=== PATIENT | male | born 1965 | race Caucasian/White ===

== ENCOUNTER 2016-05-14 15:19 | Inpatient (IN) | payer OTHER ==
[2016-05-14] MEDS ORDERED: ROCEPHIN 1 GM/NS 50 ML IV ONE (15:43)
[2016-05-14] MEDS ORDERED: LEVAQUIN PO ONE (15:44)
[2016-05-14 15:56] LABS: INR 1.04; PTT 31.5 Seconds (22.0-36.0)
[2016-05-14 16:08] LABS: BASO% 0.2 % (0.0-0.8); EOS# 0.04 X1000 (0.0-0.7); EOS% 0.2 % (0.0-10.0); HEMATOCRIT 36.1 % (42.0-52.0); HEMOGLOBIN 11.8 g/dL (14.0-18.0); IMM GRAN# 0.08 X1000 (0.0-0.04); IMM GRAN% 0.4 % (0.0-0.5); LYMPH# 1.65 X1000 (1.2-3.4); LYMPH% 8.4 % (20.5-51.1); MANUAL DIFF NEEDED? YES; MCH 27.6 PG (27-31); MCHC 32.7 g/dL (33-37); MCV 84.3 FL (81-99); MONO# 0.97 X1000 (0.11-0.59); MONO% 4.9 % (1.7-9.3); NEUT% 85.9 % (42.2-75.2); RBC 4.28 XMIL (4.7-6.1)
[2016-05-14 16:09] LABS: PLT 1061 X1000 (130-400)
--- NOTE | 2016-05-14 16:10 | EKG Report ---
Test Performed on : 05/14/2016 3:30:17 PM Test Reason : sob Blood Pressure : / mmHG Vent. Rate : 094 BPM Atrial Rate : 094 BPM P-R Int : 158 ms QRS Dur : 088 ms QT Int : 352 ms P-R-T Axes : 085 -61 081 degrees QTc Int : 440 ms Normal sinus rhythm. Biatrial enlargement Left axis deviation Cannot rule out Anteroseptal infarct , age undetermined Abnormal ECG No previous ECGs available Unconfirmed Result
[2016-05-14 16:11] LABS: AGAP 18; ALBUMIN 2.6 g/dL (3.5-5.0); ALKALINE PHOSPHATASE 144 U/L (32-122); BUN 14 mg/dL (8-22); CHLORIDE 94 mmol/L (98-107); CK PROFILE 18 U/L (24-204); COSMO 271; GOT 28 U/L (10-34); GPT 19 U/L (10-44); MAGNESIUM 1.6 mg/dL (1.5-2.7); POTASSIUM 3.5 mmol/L (3.5-5.1); SODIUM 134 mmol/L (136-145); TCO2 22 mmol/L (25-35); TOTAL PROTEIN 7.1 g/dL (6.3-8.3)
[2016-05-14 16:21] LABS: LYMPHS 8 % (21-51); MONO 5 % (1-9)
--- NOTE | 2016-05-14 16:23 | PROVIDER DOCUMENTATION ---
HPI-Respiratory General - General Chief Complaint: Shortness of Breath Stated Complaint: COUGH Time Seen by Provider: 05/14/16 15:42 Source: patient Allergies/Adverse Reactions: Patient Allergies Allergy/AdvReac Type Severity Reaction Status Date / Time No Known Allergies Allergy Verified 05/14/16 16:01 Home Medications: Home Medication List Medication Instructions Recorded Confirmed Last Taken Type No Home Medications 05/14/16 05/14/16 Unknown History - History of Present Illness-Resp Nature of Presenting Problem: patient is a 50 y/o M that presents with one month of shortness of breath, cough , fever/chills. patient was seen last week at pcp and dx with pna but was unable to get rx filled due to money. He's a PPD smoker. pt has generalized aches as well. Quality of Pain: reports: tightness Severity in ED: reports: moderate Onset/Duration: reports: gradual, other (a month) Timing: reports: still present, constant, getting worse Context: reports: recent URI (but couldn't afford medications) Cough Quality/Degree: reports: moderate, dry cough Episode Frequency: chronic episodes Current Respiratory Medication Therapy: Initiated see nurses note Modifying Factors: worse with: exertion, coughing Associated Symptoms: reports: cough, fever/chills, shortness of breath, short of breath. denies: nasal congestion, nasal drainage Similar Symptoms Previously?: Yes Recently seen or treated by another doctor?: Yes Review of Systems - Adult - REVIEW OF SYSTEMS - ADULT Constitutional: reports: fever. denies: chills Eyes: reports: no symptoms reported Ears, Nose, Mouth & Throat: denies: ear pain, sinus problem, throat pain, throat swelling Cardiovascular: denies: chest pain, palpitations, syncope Respiratory: reports: cough, dyspnea on exertion, shortness of breath, wheezing Gastrointestinal: denies: abdominal pain, diarrhea, nausea, vomiting Genitourinary: reports: no symptoms reported Musculoskeletal: reports: muscle aches, muscle weakness Integumentary: reports: no symptoms reported Neurological: reports: no symptoms reported Psychiatric: reports: no symptoms reported Endocrine: reports: no symptoms reported Hematologic/Lymphatic: reports: no symptoms reported Allergic/Immunologic: reports: no symptoms reported All Other Systems: Reviewed and Negative Past History - Adult - PAST MEDICAL HISTORY-ADULT Review of Records: reports: Nursing Assessment Review, Medications Reviewed Respiratory: reports: tuberculosis (dx in treated) - PRIOR SURGERIES/PROCEDURES Surgical/Procedure History: reports: reviewed, not pertinent - IMMUNIZATION STATUS Childhood Immunizations: See Nurse Assessment Flu Vaccine: See Nurse Assessment - FAMILY HISTORY Family History: reviewed, not pertinent - SOCIAL HISTORY Smoking: cigarettes, greater than 1 pack/day Alcohol Use Frequency: every day Number of drinks per typical drinking period:: 5-10 drinks Living Situation: family Physical Exam-General - PHYSICAL EXAM-ADULT Initial Vital Signs Reviewed: Yes - CONSTITUTIONAL General Appearance: alert, mild distress - EYES Eyes: PERRL/EOMI, pink conjunctivae - HEAD, EARS, NOSE, MOUTH & THROAT HENMT: normocephalic/atraumatic, moist mucous membranes, normal ENT inspection - NECK Neck: full range of motion, normal inspection. negative: lymphadenopathy - RESPIRATORY Respiratory: no respiratory distress, decreased breath sounds (on right base), increased rate - CARDIOVASCULAR Cardiovascular: no gallop, no murmur, tachycardia - GASTROINTESTINAL (ABDOMEN) Abdominal Exam: normal bowel sounds, non tender, soft, no organomegaly, no pulsatile mass - MUSCULOSKELETAL Back Exam: no CVA tenderness, no vertebral tenderness Extremity: normal range of motion, non-tender, normal inspection, no pedal edema , no calf tenderness, normal capillary refill, pelvis stable - SKIN Integumentary: normal color, warm/dry - NEUROLOGIC Neurologic: grossly normal, no motor/sensory deficits - PSYCHIATRIC Psych/Mental Status: normal mood/affect, normal thought content, normal thought process, oriented x 3 Progress - PLAN OF CARE/RESULTS Progress/Plan/Lab Results: plan of care-labs, cxr, ekg, meds, ct scan angio PE study [id number]-Hospitalist will be paged for admission Vital Signs Temp Pulse Resp BP Pulse Ox 05/14/16 15:24 98.2 F 109 H 32 H 115/62 99 No Known Allergies Allergy (Verified 05/14/16 16:01) No Home Medications 05/14/16 Laboratory 05/14/16 05/14/16 05/14/16 15:32 15:32 15:32 WBC RBC Hgb Hct MCV MCH MCHC RDW Std Deviation Plt Count MPV Immature Gran % (Auto) Neut % (Auto) Lymph % (Auto) [place] % (Auto) Eos % (Auto) Baso % (Auto) Immature Gran # (Auto) Neut # (Auto) Lymph # (Auto) [place] # (Auto) Eos # (Auto) Baso # (Auto) Segmented Neutrophils Lymphocytes Monocytes Pathologist Review Large Platelets PT 11.0 INR 1.04 PTT (Actin FS) 31.5 D-Dimer Sodium Potassium Chloride Carbon Dioxide Anion Gap BUN Creatinine Estimated GFR/1.73 m2 BUN/Creatinine Ratio Glucose Calculated Osmolality Calcium Magnesium Total Bilirubin AST ALT Alkaline Phosphatase Creatine Kinase Troponin T < 0.010 Drn-[id number]-[id number] Pept 207 H Total Protein Albumin Globulin Albumin/Globulin Ratio 05/14/16 05/14/16 05/14/16 15:32 15:32 15:32 WBC 19.71 H RBC 4.28 L Hgb 11.8 L Hct 36.1 L MCV 84.3 MCH 27.6 MCHC 32.7 L RDW Std Deviation 13.5 Plt Count 1061 H* MPV 9.0 Immature Gran % (Auto) 0.4 Neut % (Auto) 85.9 H Lymph % (Auto) 8.4 L [place] % (Auto) 4.9 Eos % (Auto) 0.2 Baso % (Auto) 0.2 Immature Gran # (Auto) 0.08 H Neut # (Auto) 16.94 H Lymph # (Auto) 1.65 [place] # (Auto) 0.97 H Eos # (Auto) 0.04 Baso # (Auto) 0.03 Segmented Neutrophils 87 H Lymphocytes 8 L Monocytes 5 Pathologist Review Large Platelets PT INR PTT (Actin FS) D-Dimer 0.54 H Sodium 134 L Potassium 3.5 Chloride 94 L Carbon Dioxide 22 L Anion Gap 18 BUN 14 Creatinine 0.6 L Estimated GFR/1.73 m2 > 60 BUN/Creatinine Ratio 23 Glucose 139 H Calculated Osmolality 271 Calcium 9.0 Magnesium 1.6 Total Bilirubin 0.30 AST 28 ALT 19 Alkaline Phosphatase 144 H Creatine Kinase 18 L Troponin T Cho-G-Gbqvpcjhosi Pept Total Protein 7.1 Albumin 2.6 L Globulin 4.5 Albumin/Globulin Ratio 0.6 Orders Category Date Time Status ANGIOGRAM/PULMONARY ARTERIES [CT] Stat Exams 05/14/16 16:11 Taken CHEST-2 VIEWS [RAD] Stat Exams 05/14/16 15:30 Taken BLOOD CULTURE [BLDCUL] Stat Lab 05/14/16 15:57 Results CBC WITH ELECTRONIC DIFF [HEME] Stat Lab 05/14/16 15:32 Completed CK PROFILE [SP CHEM] Stat Lab 02/06/17 15:32 Completed COMPREHENSIVE METABOLIC PANEL [CHEM] Stat Lab 05/14/16 15:32 Completed D-DIMER [CHEM] Stat Lab 05/14/16 15:32 Completed MAGNESIUM [CHEM] Stat Lab 05/14/16 15:32 Completed PRO B-NATRIURETIC PEPTIDE Stat Lab 05/14/16 15:32 Completed PROTIME WITH INR [COAG] Stat Lab 05/14/16 15:32 Completed PTT [COAG] Stat Lab 05/14/16 15:32 Completed TROPONIN T Stat Lab 05/14/16 15:32 Completed CefTRIAXONE 1 GM/NS [Rocephin 1 gm/Ns] 50 ml Med 05/14/16 15:43 Discontinued IV NOW Levofloxacin [Levaquin] Med 05/14/16 15:44 Discontinued 750 mg PO NOW ONE EKG [EKG] Stat Ther 05/14/16 15:29 Draft pt's family alerted nurse that patient drinks daily, he had some drinks this am but is started to have tremors and shakes - EKG 1 Time of EKG reading by physician:: 15:30 EKG Read and Signed by:: Josafat Ashton EKG Interpretation (*Must complete 3 of following elements*): Abnormal Rate: 94 Rhythm: NSR Repton: left NH Interval: normal ST Wave: non-specific ST changes Comments: biatrial enlargement - XRAY 1 XRAY Study: Chest Impression: Abnormal XRAY Interpretation: persistent RLL pneumonia/atelectasis with hilar adenopathy - CT/MRI 1 CT Study: Angiogram Impression: Abnormal CT Results: no pe, RLL mass and hilar adenopathy Departure - Departure Time of Disposition Order: 17:52 DIAGNOSIS: Mass of right lung, Shortness of breath, High platelet count Disposition: ADMITTED INPATIENT 09 Certified Medical Emergency: Emergent Condition: Stable Referrals: [Primary Care Provider] - Attestation - Scribe Verification/Attestation Scribe:: Adrian Mcclain Acting as Scribe for:: Josafat Ashton Scribe documention review:: This chart was documented by a scribe and accurately reflects the service the provider performed and the decisions made by the provider. Physician Attestation - Physician Attestation I, the provider, attest to the following statement:: Josafat Ashton Physician documentation Attestation:: This documentation recorded by the scribe accurately reflects the service I personally performed and the decisions made by me.
[2016-05-14] MEDS ORDERED: ATIVAN IV ONE (17:49)
--- NOTE | 2016-05-14 18:57 | Diag Imaging Result Document ---
PROCEDURE NAME: ANGIOGRAM/PULMONARY ARTERIES - 05/14/2016 CT OF THE CHEST WITH INTRAVENOUS CONTRAST: FINDINGS: There are no filling defects in the pulmonary arteries. There is several bullous emphysema in the right upper left lobe. There is attenuation of the posteromedial basal segment of the right lower lobe with a mass appearing opacity present in the right lower lobe. There is also apparent postobstructive pneumonitis. The more solid consolidation region measures at least 6.5 cm in diameter. In addition to this, there is adenopathy in the lower right hilum with nodes exceeding 2.8 cm in size. The aorta is normal in appearance. The adrenal glands are not enlarged. The regional skeleton appears to be intact. There are no previous studies. IMPRESSION: Right lower lobe mass with probable bronchial stenosis and right hilar adenopathy. Severe COPD.
[2016-05-14 19:27] LABS: HEMOGLOBIN A1C 5.7 % (4.8-6.0)
[2016-05-14] MEDS ORDERED: VANCOMYCIN IV PER PHARMACY MISC SCH (19:30)
[2016-05-14 19:34] LABS: FREE T4 1.25 ng/dL (0.93-1.70)
[2016-05-14 19:50] LABS: URINE CULTURE NEEDED? NO; URINE MICRO REVIEW NEEDED? NO; URINE SOURCE CLEAN CATCH
--- NOTE | 2016-05-14 20:03 | HISTORY AND PHYSICAL ---
HISTORY OF PRESENT ILLNESS: Mr. Penaloza gives a report that for 2 months both feet have been hurting, both his knees have been hurting. 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 The joints have hurt him now for a couple of months. He then states that he has had a cough and felt bad for the last 2 months but came to the emergency room today. He looks diaphoretic. He is alert and oriented. He states he has lost weight. He is not eating very well. He has a lady there who is a sitter for him. She used to work for home health. She verifies that he has not felt good for the last 2 months. PAST MEDICAL HISTORY: He does not give any past medical history. I do not see any past medical history on him. ALLERGIES: No known drug allergies. SOCIAL HISTORY: He smokes a couple of packs every day. He is drinking 5-6 beers by his report every day. He says he has not had much to drink or has cut back in the last couple of days. FAMILY HISTORY: He did not give us any significant family history. PHYSICAL EXAMINATION: VITAL SIGNS: Temperature 98.2 degrees, pulse 109, respirations 32, blood pressure 115/62. Weight 130 pounds. NECK: No distended neck veins. CVP less than 6 cm. LUNGS: Scattered rhonchi. CARDIOVASCULAR: Regular rhythm and rate. He has some sinus tachycardia but it is regular rhythm. ABDOMEN: Soft, nontender. EXTREMITIES: Without clubbing, cyanosis, or edema. LABORATORY DATA: White count 19,710, hematocrit 36, platelet count 1061, predominantly neutrophils 85%. Of note, he has large platelets. Sodium 134, potassium 3.5, chloride 94, bicarb 22, BUN 14, creatinine 0.6, blood sugar 139, calcium 9.0, magnesium 1.6, AST 28, ALT 19, alkaline phos 144, CK was 18, troponin less than 0.01. ProBNP 207, albumin 4.7, pro time 11, PTT 31, D- dimer 0.54. Micro blood specimen submitted for stool sample is pending. Chest x-ray reported infiltrate. EKG shows biatrial enlargement, left axis deviation. On 05/04/2016 he got a chest x-ray with COPD changes with dense focal infiltrate in the medial right lower lung zone likely representing pneumonia. Follow-up chest x-ray was recommended including the possibly of underlying mass. The repeat x-ray today looks about the same. Dr. Hawthorne is concerned about a mass in the right lung. ASSESSMENT AND PLAN: Suspect right lung mass, underlying COPD. We are going to treat for postobstructive pneumonia. We will put him on some Zosyn and vancomycin for now. Apparently he has felt pretty bad. We will get Pulmonary involved. We will give him some breathing treatments and Advair. Put him on a regular diet. We are going to probably need to get tissue biopsy of the right middle lung mass.
[2016-05-14 20:11] LABS: UR AMPHETAMINES QUAL NONE DETECTED (NONE DETECT); UR BARBITUATES QUAL NONE DETECTED (NONE DETECT); UR BENZODIAZEPIN QUAL NONE DETECTED (NONE DETECT); UR CANNABINOIDS QUAL NONE DETECTED (NONE DETECT); UR COCAINE QUAL NONE DETECTED (NONE DETECT); UR METHADONE QUAL NONE DETECTED (NONE DETECT); UR OPIATES QUAL NONE DETECTED (NONE DETECT); UR OXYCODONE QUAL NONE DETECTED (NONE DETECT); UR PCP QUAL NONE DETECTED (NONE DETECT)
[2016-05-14 20:18] LABS: BILIRUBIN URINE NEGATIVE (NEGATIVE); BLOOD URINE NEGATIVE (NEGATIVE); COLOR YELLOW; GLUCOSE URINE NEGATIVE (NEGATIVE); LEUKOCYTES URINE NEGATIVE (NEGATIVE); NITRITE URINE NEGATIVE (NEGATIVE); PROTEIN URINE TRACE mg/dL (NEGATIVE); TURBIDITY URINE CLEAR (CLEAR); UROBILINOGEN URINE 3 mg/dL (NORMAL)
[2016-05-14 20:21] LABS: UR EPITHELIAL CELLS <10 /HPF (<10); URINE BACTERIA NEGATIVE /HPF; URINE RBC <10 /HPF (<10); URINE WBC <10 /HPF (<10)
[2016-05-14] MEDS: DUONEB (A & A) INH SCH (20:31)
[2016-05-14] MEDS: NICODERM PATCH TD SCH (20:50)
[2016-05-14] MEDS: NS 1,000 ML IV SCH (20:51)
[2016-05-14] MEDS: M.V.I.-12 10 ML, FOLIC ACID 1 MG, MAGNESIUM SULFATE 1 GM, THIAMINE 100 MG in NS 1,000 ML IV SCH (20:51)
[2016-05-14] MEDS: ZOSYN 3.375 GM/NS 50 ML IV SCH (20:51)
[2016-05-14] MEDS ORDERED: VANCOMYCIN 2,000 MG in NS 500 ML IV ONE (21:00)
[2016-05-15] MEDS: ZOSYN 3.375 GM/NS 50 ML IV SCH ×3 (02:23→14:17)
--- NOTE | 2016-05-15 02:35 | PROGRESS NOTE ---
DATE: 05/14/2016 ADDENDUM REPORT: We also need to be vigilant about probable alcohol withdrawal versus delirium tremens. I am going to start him on some Ativan. I did discuss with the patient and told him I am concerned he has got lung cancer.
[2016-05-15] MEDS: DUONEB (A & A) INH SCH ×4 (03:38→21:00)
--- NOTE | 2016-05-15 06:15 | Diag Imaging Result Document ---
PROCEDURE NAME: CHEST-2 VIEWS - 05/14/2016 TWO VIEWS OF THE CHEST: FINDINGS: There is COPD particularly in the right apex. There is dense opacification of the medial right lower lobe. This was also present on 05/04/2016 and there is apparent adenopathy in the lower right hilum. IMPRESSION: 1. Persistent atelectasis and opacification of the right lower lobe. 2. Right hilar adenopathy. 3. COPD.
[2016-05-15] MEDS: NS 1,000 ML IV SCH ×2 (06:32→18:26)
[2016-05-15 07:01] LABS: HEMATOCRIT 29.6 % (42.0-52.0); HEMOGLOBIN 9.7 g/dL (14.0-18.0); MCH 27.9 PG (27-31); MCHC 32.8 g/dL (33-37); MCV 85.1 FL (81-99); MPV 8.9 FL (7.4-10.4); RBC 3.48 XMIL (4.7-6.1)
[2016-05-15 07:16] LABS: AGAP 15; BUN 9 mg/dL (8-22); CALCIUM 7.8 mg/dL (8.8-10.2); CHLORIDE 98 mmol/L (98-107); COSMO 268; POTASSIUM 3.1 mmol/L (3.5-5.1); SODIUM 135 mmol/L (136-145); TCO2 22 mmol/L (25-35)
--- NOTE | 2016-05-15 08:08 | Diag Imaging Result Document ---
PROCEDURE NAME: CHEST-PORTABLE - 05/15/2016 SINGLE FRONTAL RADIOGRAPH OF THE CHEST: COMPARISON: 05/14/2016. FINDINGS: Dense opacity at the medial right lung base that is related to a known right lower lobe mass and adjacent perilesional infiltrate is stable. No new consolidation is identified. Cardiac silhouette is stable. IMPRESSION: Stable chest. MTDD
[2016-05-15] MEDS ORDERED: KLOR-CON PO ONE (08:11)
[2016-05-15] MEDS: NICODERM PATCH TD SCH (10:44)
[2016-05-15] MEDS: VANCOMYCIN 1,500 MG in NS 250 ML IV SCH ×2 (12:06→23:00)
--- NOTE | 2016-05-15 15:01 | PROGRESS NOTE ---
DATE: 05/15/2016 SUBJECTIVE: This patient states that he is feeling a little bit better, he is still complaining of cough, some generalized weakness and fatigue. OBJECTIVE: Vital Signs: Temperature 99.6 degrees, pulse 80, respiratory rate 18, blood pressure 105/65, O2 saturation 95 on room air. HEENT: Head normocephalic. No trauma. PERRLA. Neck: Supple. No JVD. No masses. Central trachea. Cardiovascular: RRR. No murmurs. No gallops. No rubs. Chest: Right lower lung rhonchi, prolonged expiratory phase, no wheezing, no rales. Abdomen: Soft, nontender, nondistended. No hepatosplenomegaly. Extremities: No edema. No clubbing. No cyanosis. Neurological: The patient is alert and oriented x3. No focal neurological deficits. LABORATORY: WBC 17, hemoglobin 9.7, hematocrit 29.6, platelets 717,000. Sodium 135, potassium 3.1, chloride 98, bicarbonate 22, BUN 9, creatinine 0.5, glucose 91, calcium 7.8. ASSESSMENT AND PLAN: 1. Right lower lung mass. Pulmonary department Dr. Sharma has been consulted, we will wait for the recommendations, we will continue with IV antibiotics, he is on vancomycin and Zosyn. 2. Pneumonia, likely postobstructive pneumonia. I will continue with the antibiotics for now, he has been feeling a little bit better. I will continue with oxygen and breathing treatment. 3. Possible chronic obstructive pulmonary disease, not in exacerbation. This patient is still smoking. 4. Thrombocytosis. Upon admission this patient has a platelet count of 1061 today is 717,000. We will keep an eye on that. 5. Anemia likely anemia of chronic disease. We will continue to monitor, stable. 6. Hypokalemia. I will replace the potassium today. 7. Alcohol abuse. I will continue with the Ativan p.r.n. in case of alcohol withdrawal or delirium tremens. I will continue with multivitamin as well. [facility]
[2016-05-15] MEDS: MORPHINE IV PRN (16:55)
[2016-05-16] MEDS: MORPHINE IV PRN ×5 (00:12→22:17)
[2016-05-16] MEDS: M.V.I.-12 10 ML, FOLIC ACID 1 MG, MAGNESIUM SULFATE 1 GM, THIAMINE 100 MG in NS 1,000 ML IV SCH ×2 (00:12→22:16)
[2016-05-16] MEDS: ATIVAN IV PRN ×3 (00:13→22:16)
[2016-05-16] MEDS: ZOSYN 3.375 GM/NS 50 ML IV SCH ×5 (00:19→18:08)
[2016-05-16] MEDS: NS 1,000 ML IV SCH (01:46)
[2016-05-16] MEDS: DUONEB (A & A) INH SCH ×4 (03:37→20:10)
[2016-05-16] MEDS: NICODERM PATCH TD SCH ×2 (05:26→09:17)
[2016-05-16 06:39] LABS: HEMATOCRIT 29.6 % (42.0-52.0); HEMOGLOBIN 9.6 g/dL (14.0-18.0); MCH 27.6 PG (27-31); MCHC 32.4 g/dL (33-37); MCV 85.1 FL (81-99); RBC 3.48 XMIL (4.7-6.1)
[2016-05-16 06:58] LABS: AGAP 12; BUN 6 mg/dL (8-22); CALCIUM 7.5 mg/dL (8.8-10.2); CHLORIDE 96 mmol/L (98-107); COSMO 258; POTASSIUM 3.1 mmol/L (3.5-5.1); SODIUM 130 mmol/L (136-145); TCO2 22 mmol/L (25-35)
[2016-05-16] MEDS ORDERED: KLOR-CON PO ONE (07:36)
--- NOTE | 2016-05-16 08:39 | Diag Imaging Result Document ---
PROCEDURE NAME: CHEST-PORTABLE - 05/16/2016 SINGLE FRONTAL RADIOGRAPH OF THE CHEST: COMPARISON: 05/15/2016. FINDINGS: Dense opacity at the medial right lung base is stable. No new consolidations are identified. Cardiac silhouette is stable. IMPRESSION: Stable chest.
--- NOTE | 2016-05-16 09:13 | Diag Imaging Result Document ---
PROCEDURE NAME: CHEST-2 VIEWS - 05/16/2016 INSPIRATORY/EXPIRATORY CHEST, TWO VIEWS: COMPARISON: Compared to films taken earlier. FINDINGS: Right lower lobe opacity remains. There are emphysematous changes in the upper right lung. No postprocedural pneumothorax. The left lung remains well expanded and clear. No cardiomegaly. IMPRESSION: No postprocedural pneumothorax.
--- NOTE | 2016-05-16 09:21 | Diag Imaging Result Document ---
PROCEDURE NAME: CT GUIDED BIOPSY LUNG - 05/16/2016 CT-GUIDED LUNG BIOPSY: FINDINGS: Prior to the procedure I discussed the risks and benefits with the patient. Primary risks include: Bleeding, infection, a pneumothorax which could require a chest tube, and liver injury. Questions were answered. The patient then gave consent. The permit was signed. The patient was placed prone on the CT table. The right lower lung mass/consolidated area was localized. This area was cleaned and draped in the normal fashion. Lidocaine was used as a local anesthetic. An 18 gauge Temno needle and introducer were advanced into the mass/consolidated area on the first pass without difficulty. Five separate biopsy specimens were obtained. These were sent to pathology. Introducer and needle were withdrawn. The patient had no complaints during or following the procedure. IMPRESSION: CT-guided lung biopsy with no immediate postprocedural complications.
[2016-05-16] MEDS: VANCOMYCIN 1,500 MG in NS 250 ML IV SCH ×2 (10:22→23:28)
--- NOTE | 2016-05-16 15:06 | PROGRESS NOTE ---
DATE: 05/16/2016 SUBJECTIVE: This patient states that he is feeling better, the cough is getting better as well. He continues with generalized weakness and fatigue. OBJECTIVE: Vital Signs: Temperature 98.2 degrees, pulse 79, respiratory rate 20, oxygen saturation 94% on room air. HEENT: Head normocephalic. No trauma. PERRLA. Neck: Supple. No JVD. No masses. Central trachea. Cardiovascular: RRR. No murmurs. No gallops. No rubs. Chest: Right lower lung rhonchi, prolonged expiatory phase. No wheezing, no rales. Abdomen: Soft, nontender, nondistended. No hepatosplenomegaly. Extremities: No edema. No clubbing. No cyanosis. Neurological: Patient is alert and oriented times x3. No focal neurological deficits. LABORATORY: WBC 16, hemoglobin 9.6, hematocrit 29.6, platelets 684,000. Sodium 130, potassium 3.1, chloride 96, bicarbonate 22, BUN 6, creatinine 0.4, glucose 94, calcium 7.5, magnesium 1.8. ASSESSMENT AND PLAN: 1. Right lower lung mass. Pulmonary Department, Dr. Sharma, was consulted and he considered a biopsy, a CT-guided biopsy. I will continue with the antibiotics. He is on vancomycin and Zosyn. 2. Pneumonia, likely postobstructive pneumonia. I will continue with the antibiotics for now. He has been feeling a little bit better. We will continue with oxygen and breathing treatment as well. 3. Possible chronic obstructive pulmonary disease, not in exacerbation. This patient is still smoking. He is not complaining of any shortness of breath at this moment. 4. Thrombocytosis. Upon admission this patient had a platelet count of 1061, today this patient has platelets around 600. We will continue to monitor. 5. Anemia, likely secondary to chronic disease. Continue to monitor. 6. Hypokalemia. I will replace the potassium today. 7. Alcohol abuse. I will continue with Ativan p.r.n. in case of alcohol withdrawal or delirium tremens, I will continue with multivitamin as well.
[2016-05-17] MEDS: DUONEB (A & A) INH SCH (03:41)
[2016-05-17] MEDS: ZOSYN 3.375 GM/NS 50 ML IV SCH ×3 (04:19→20:29)
[2016-05-17 06:47] LABS: HEMATOCRIT 27.8 % (42.0-52.0); MCH 27.5 PG (27-31); MCHC 32.4 g/dL (33-37); RBC 3.27 XMIL (4.7-6.1)
[2016-05-17 06:58] LABS: AGAP 11; BUN 9 mg/dL (8-22); CALCIUM 7.8 mg/dL (8.8-10.2); CHLORIDE 98 mmol/L (98-107); COSMO 262; POTASSIUM 3.1 mmol/L (3.5-5.1); SODIUM 131 mmol/L (136-145); TCO2 22 mmol/L (25-35)
[2016-05-17] MEDS ORDERED: KLOR-CON PO ONE (07:31)
[2016-05-17] MEDS: DUONEB (A & A) INH PRN ×2 (09:22→19:54)
[2016-05-17] MEDS: NICODERM PATCH TD SCH (10:01)
[2016-05-17] MEDS: MORPHINE IV PRN ×3 (10:07→20:29)
[2016-05-17] MEDS: VANCOMYCIN 1,500 MG in NS 250 ML IV SCH (11:11)
--- NOTE | 2016-05-17 15:57 | PROGRESS NOTE ---
DATE: 05/17/2016 SUBJECTIVE: This patient states that he is feeling tired, and also he has been having chills. The cough is getting better. He continues with the fatigue. OBJECTIVE: Vital Signs: Temperature 98.8 degrees, pulse 88, respiratory rate 18, blood pressure 109/54, oxygen saturation 95% on room air. HEENT: Head normocephalic. No trauma. PERRLA. Neck: Supple. No JVD. No masses. Central trachea. Cardiovascular: RRR. No murmurs. No gallops. No rubs. Chest: Right lower lung rhonchi. Prolonged expiatory phase. No wheezing. No rales. Abdomen: Soft, nontender, nondistended. No hepatosplenomegaly. Extremities: No edema. No clubbing. No cyanosis. Neurological: Patient is alert and oriented x3. No focal neurological deficits. LABORATORY: WBC 15.3, hemoglobin 9, hematocrit 27.8, platelets 642,000. Sodium 131, potassium 3.1, chloride 98, bicarbonate 22, BUN 9, creatinine 0.5. Glucose 112. Calcium 7.8, magnesium 1.7. ASSESSMENT AND PLAN: 1. Right lower lung mass. Pulmonary Department is following this patient. This patient had a CT- guided biopsy. We will continue with the antibiotics. He is on vancomycin and Zosyn. 2. Pneumonia likely postobstructive pneumonia. I will continue with the antibiotics for now. The cough has been getting better. We will continue with oxygen and breathing treatment as well. 3. Hypokalemia. I will replace the potassium. 4. Possible COPD, not in exacerbation. This patient is still smoking. He is not complaining of any shortness of breath at this moment. 5. Thrombocytosis. Upon admission this patient had a platelet count of 1,610,000 but now is around 600,000. We will continue to monitor. 6. Anemia, likely secondary to chronic disease. Continue to monitor. 7. Alcohol abuse. This patient has been highly advised against alcohol abuse. I will continue with Ativan p.r.n. in case of alcohol withdrawal or delirium tremens. 8. Tobacco abuse. This patient has been highly advised against tobacco abuse.
[2016-05-17] MEDS: VANCOMYCIN 1,800 MG in NS 250 ML IV SCH (21:14)
[2016-05-17] MEDS: M.V.I.-12 10 ML, FOLIC ACID 1 MG, MAGNESIUM SULFATE 1 GM, THIAMINE 100 MG in NS 1,000 ML IV SCH (21:14)
[2016-05-18] MEDS: VANCOMYCIN 1,800 MG in NS 250 ML IV SCH ×3 (01:54→22:30)
[2016-05-18] MEDS: ZOSYN 3.375 GM/NS 50 ML IV SCH ×4 (02:22→20:12)
[2016-05-18] MEDS: MORPHINE IV PRN ×4 (02:47→20:55)
[2016-05-18 07:13] LABS: BASO% 0.7 % (0.0-0.8); EOS# 0.13 X1000 (0.0-0.7); HEMATOCRIT 27.5 % (42.0-52.0); HEMOGLOBIN 8.9 g/dL (14.0-18.0); IMM GRAN# 0.03 X1000 (0.0-0.04); IMM GRAN% 0.2 % (0.0-0.5); LYMPH# 1.13 X1000 (1.2-3.4); LYMPH% 8.6 % (20.5-51.1); MANUAL DIFF NEEDED? YES; MCHC 32.4 g/dL (33-37); MCV 83.3 FL (81-99); MONO# 1.31 X1000 (0.11-0.59); MPV 9.3 FL (7.4-10.4); NEUT% 79.5 % (42.2-75.2); PLT 594 X1000 (130-400)
[2016-05-18 07:39] LABS: AGAP 12; BUN 9 mg/dL (8-22); CALCIUM 7.9 mg/dL (8.8-10.2); CHLORIDE 97 mmol/L (98-107); COSMO 260; POTASSIUM 4.2 mmol/L (3.5-5.1); SODIUM 130 mmol/L (136-145); TCO2 21 mmol/L (25-35)
[2016-05-18] MEDS: DUONEB (A & A) INH PRN ×2 (07:53→20:15)
[2016-05-18] MEDS: NICODERM PATCH TD SCH (08:02)
[2016-05-18 08:56] LABS: EOS 2 % (1-10); LYMPHS 9 % (21-51); MONO 10 % (1-9)
--- NOTE | 2016-05-18 10:16 | Diag Imaging Result Document ---
PROCEDURE NAME: CHEST-PORTABLE - 05/18/2016 PORTABLE CHEST X-RAY: COMPARISON: 05/16/2016. FINDINGS: There is perhaps mild worsening of the right lower lobe infiltrate as seen by increasing loss of the right hemidiaphragm. Otherwise, stable COPD. No pneumothorax or pleural effusion. Heart size remains normal. IMPRESSION: Worsening infiltrate in the right lower lobe.
--- NOTE | 2016-05-18 14:35 | PROGRESS NOTE ---
DATE: 05/18/2016 SUBJECTIVE: This patient has been having fever, I repeated an x-ray today that showed worsening right lower infiltrate. I will add levofloxacin to his medications. He is still having fatigue. OBJECTIVE: Vital Signs: Temperature 97.6 degrees, pulse 86, respiratory rate 16, blood pressure 103/63, O2 saturation 95 on room air. HEENT: Head normocephalic. No trauma. PERRLA. Neck: Supple. No JVD. No masses. Central trachea. Cardiovascular: RRR. No murmurs. No rubs. No gallops. Chest: Right lower lungs rhonchi, prolonged expiatory phase. No wheezing. No rales. Abdomen: Soft, nontender, nondistended. No hepatosplenomegaly. Extremities: No edema. No clubbing. No cyanosis. Neurological: The patient is alert and oriented x3. No focal neurological deficits. LABORATORY: WBC 13.1, hemoglobin 8.9, hematocrit 27.5, platelets 594,000. Sodium 130, potassium 4.2, chloride 97, bicarbonate 21, BUN 9, creatinine 0.5, glucose 106, calcium 7.9, magnesium 1.9. ASSESSMENT AND PLAN: 1. Right lower lung mass. Pulmonary department is following this patient. This patient had a CT- guided biopsy. Pending results we will continue with the antibiotics. He is on vancomycin and Zosyn. We will add levofloxacin to his medications. 2. Postobstructive pneumonia. Like I mentioned before, I will add levofloxacin to his medications, will continue to monitor. 3. Possible chronic obstructive pulmonary disease not in exacerbation. This patient is still smoking. He is not complaining of any shortness of breath at this moment. 4. Thrombocytosis. This is getting better. Today the platelet count is around 500, will monitor. 5. Anemia likely secondary to chronic disease. Continue to monitor, stable. 6. Alcohol abuse. This patient has been highly advised against alcohol abuse. I will continue with Ativan p.r.n. in case of alcohol withdrawal or delirium tremens. 7. Tobacco abuse. This patient has been highly advised against tobacco abuse. I will continue with a daily cessation education. [facility]
[2016-05-18] MEDS: LEVAQUIN 750 MG/D5W 150 ML IV SCH (15:49)
[2016-05-18] MEDS: NORCO-7.5 PO PRN (20:12)
[2016-05-18] MEDS: M.V.I.-12 10 ML, FOLIC ACID 1 MG, MAGNESIUM SULFATE 1 GM, THIAMINE 100 MG in NS 1,000 ML IV SCH (20:59)
[2016-05-19] MEDS: NORCO-7.5 PO PRN ×4 (01:54→20:14)
[2016-05-19] MEDS: ZOSYN 3.375 GM/NS 50 ML IV SCH ×4 (01:54→20:14)
[2016-05-19] MEDS: DUONEB (A & A) INH PRN ×5 (03:51→23:19)
[2016-05-19 06:43] LABS: MANUAL DIFF NEEDED? NO
[2016-05-19 06:55] LABS: BASO% 0.6 % (0.0-0.8); EOS% 1.9 % (0.0-10.0); HEMATOCRIT 25.7 % (42.0-52.0); HEMOGLOBIN 8.3 g/dL (14.0-18.0); IMM GRAN# 0.03 X1000 (0.0-0.04); IMM GRAN% 0.3 % (0.0-0.5); LYMPH# 0.99 X1000 (1.2-3.4); LYMPH% 9.2 % (20.5-51.1); MCH 26.9 PG (27-31); MCHC 32.3 g/dL (33-37); MCV 83.4 FL (81-99); MONO# 1.05 X1000 (0.11-0.59); MONO% 9.7 % (1.7-9.3); MPV 9.4 FL (7.4-10.4); NEUT% 78.3 % (42.2-75.2); PLT 598 X1000 (130-400); RBC 3.08 XMIL (4.7-6.1)
[2016-05-19 07:23] LABS: AGAP 11; BUN 10 mg/dL (8-22); CALCIUM 8.1 mg/dL (8.8-10.2); CHLORIDE 100 mmol/L (98-107); COSMO 267; POTASSIUM 3.2 mmol/L (3.5-5.1); SODIUM 133 mmol/L (136-145); TCO2 22 mmol/L (25-35)
[2016-05-19] MEDS ORDERED: KLOR-CON PO ONE (07:44)
[2016-05-19] MEDS: NICODERM PATCH TD SCH (08:40)
[2016-05-19] MEDS: M.V.I.-12 10 ML, FOLIC ACID 1 MG, MAGNESIUM SULFATE 1 GM, THIAMINE 100 MG in NS 1,000 ML IV SCH (11:56)
[2016-05-19] MEDS: VANCOMYCIN 1,800 MG in NS 250 ML IV SCH (11:56)
[2016-05-19] MEDS: LEVAQUIN 750 MG/D5W 150 ML IV SCH (14:18)
[2016-05-19] MEDS: ATIVAN IV PRN ×2 (16:19→19:41)
[2016-05-19] MEDS: MORPHINE IV PRN ×2 (16:19→22:16)
--- NOTE | 2016-05-19 17:24 | PROGRESS NOTE ---
DATE: 05/19/2016 SUBJECTIVE: This patient states that he is feeling better, he is still complaining of right upper chest pain and back at the level of the shoulder blade, he is not having fever or chills. OBJECTIVE: Vital Signs: Temperature 98.3 degrees, pulse 75, respiratory rate 17, blood pressure 105/59, O2 saturation 98 on room air. HEENT: Head normocephalic. No trauma. PERRLA. Neck: Supple. No JVD. No masses. Central trachea. Chest: Right lower lungs rhonchi, prolonged expiratory phase. Cardiovascular: RRR. No murmurs. Abdomen: Soft, nontender, nondistended. No hepatosplenomegaly. Extremities: No edema. Mild pain to mobilization at the level of the knee. Neurological examination: The patient is alert and oriented x3. No focal neurological deficits. LABORATORY: WBC 10.7, hemoglobin 8.3, hematocrit 25.7, platelets 598,000, sodium 133, potassium 3.2, chloride 100, bicarbonate 22, BUN 10, creatinine 0.6, glucose 125, calcium 8.1. ASSESSMENT AND PLAN: 1. Right lower lung mass, this is likely the source of his pain, I will continue with the pain medications. This patient states that he has been losing weight, about 20 pounds in 1 month. I will wait for the CT-guided biopsy results. 2. Post obstructive pneumonia. I will continue with broad spectrum antibiotics. He is on vancomycin Zosyn and levofloxacin. 3. Hypokalemia. I will replace the potassium today. 4. Possible COPD, not in exacerbation. Patient is still smoking. He is not complaining of shortness of breath at this moment. 5. Thrombocytosis. This is getting better. When he was admitted, the platelet count was more than 1000 and today it is 598, we will continue to monitor. 6. Anemia, likely secondary to chronic disease, continue to monitor, stable. 7. Alcohol abuse. This patient has been highly advised against alcohol abuse. I will continue with Ativan p.r.n. in case of alcohol withdrawal or delirium tremens. 8. Tobacco abuse. This patient has been highly advised against tobacco abuse. I will continue with daily cessation education.
[2016-05-20] MEDS: ATIVAN IV PRN ×6 (00:09→21:57)
[2016-05-20] MEDS: VANCOMYCIN 1,800 MG in NS 250 ML IV SCH (01:40)
[2016-05-20] MEDS: DUONEB (A & A) INH PRN ×5 (03:31→19:54)
[2016-05-20] MEDS: NORCO-7.5 PO PRN ×4 (03:34→21:57)
[2016-05-20] MEDS: ZOSYN 3.375 GM/NS 50 ML IV SCH ×4 (04:24→21:58)
[2016-05-20] MEDS: MORPHINE IV PRN ×3 (05:02→18:54)
[2016-05-20] MEDS: PRILOSEC PO SCH (06:21)
[2016-05-20 06:56] LABS: MANUAL DIFF NEEDED? NO
[2016-05-20 07:00] LABS: BASO% 0.8 % (0.0-0.8); EOS# 0.27 X1000 (0.0-0.7); EOS% 1.9 % (0.0-10.0); HEMATOCRIT 27.4 % (42.0-52.0); HEMOGLOBIN 8.8 g/dL (14.0-18.0); IMM GRAN# 0.06 X1000 (0.0-0.04); IMM GRAN% 0.4 % (0.0-0.5); LYMPH# 1.22 X1000 (1.2-3.4); LYMPH% 8.7 % (20.5-51.1); MCH 26.7 PG (27-31); MCHC 32.1 g/dL (33-37); MCV 83.3 FL (81-99); MONO# 1.23 X1000 (0.11-0.59); MONO% 8.7 % (1.7-9.3); MPV 9.5 FL (7.4-10.4); NEUT% 79.5 % (42.2-75.2); PLT 662 X1000 (130-400); RBC 3.29 XMIL (4.7-6.1)
[2016-05-20 07:14] LABS: AGAP 11; BUN 8 mg/dL (8-22); CHLORIDE 102 mmol/L (98-107); COSMO 267; POTASSIUM 3.6 mmol/L (3.5-5.1); SODIUM 134 mmol/L (136-145); TCO2 21 mmol/L (25-35)
[2016-05-20] MEDS: LOVENOX SUBQ SCH ×2 (07:15→16:08)
[2016-05-20] MEDS: M.V.I.-12 10 ML, FOLIC ACID 1 MG, MAGNESIUM SULFATE 1 GM, THIAMINE 100 MG in NS 1,000 ML IV SCH (09:28)
[2016-05-20] MEDS: NICODERM PATCH TD SCH (09:28)
--- NOTE | 2016-05-20 10:46 | Diag Imaging Result Document ---
PROCEDURE NAME: CHEST-1 VIEW - 05/20/2016 PORTABLE CHEST X-RAY, 05/20/2016: COMPARISON: 05/18/2016. FINDINGS: Stable right lower lobe mass and consolidation. No pneumothorax. No new infiltrates. Heart size and pulmonary vascularity remain normal. IMPRESSION: No change from prior.
[2016-05-20] MEDS: LEVAQUIN 750 MG/D5W 150 ML IV SCH (14:09)
[2016-05-20] MEDS: VANCOMYCIN 2,000 MG in NS 500 ML IV SCH (14:09)
--- NOTE | 2016-05-20 14:34 | PROGRESS NOTE ---
DATE: 05/20/2016 SUBJECTIVE: This patient states that he is feeling about the same. He is still complaining of back pain at the level of the right shoulder blade. He has not been having fever or chills, mild cough. OBJECTIVE: Vital Signs: Temperature 97.6 degrees, pulse 80, respiratory rate 17, blood pressure 104/48, O2 saturation 95% on room air. HEENT: Head normocephalic. No trauma. PERRLA. Neck: Supple. No JVD. No masses. Central trachea. Chest: Right lower lung rhonchi. Prolonged expiatory phase. Cardiovascular: RRR. No murmurs. Abdomen: Soft, nontender, nondistended. No hepatosplenomegaly. Extremities: No edema. Mild pain upon mobilization of the knees. Neurologic: The patient is alert and oriented x3. No focal deficits. LABORATORY: WBC 14, hemoglobin 8.8, hematocrit 27.4, platelets 662,000. Sodium 134, potassium 3.6, chloride 102, bicarbonate 21, BUN 8, creatinine 0.6, glucose 103, calcium 8. ASSESSMENT AND PLAN: 1. Right lower lung mass. This is likely the source of his pain. I will continue with pain medications. The patient states that he has been losing weight about 10 pounds in 1 month. We will wait for the CT-guided biopsy results. 2. Postobstructive pneumonia. I will continue with broad-spectrum antibiotics, and he is not having fever or chills. He has leukocytosis today. 3. Hypokalemia, resolved. 4. Possible chronic obstructive pulmonary disease, not in exacerbation. Patient is still smoking. He is not complaining of shortness of breath at this moment. 5. Thrombocytosis. This is better compared with admission. We will continue to monitor. 6. Anemia, likely secondary to chronic disease. Continue to monitor, stable. 7. Alcohol abuse. This patient has been highly advised against alcohol abuse. I will continue with Ativan p.r.n. in case of alcohol withdrawal or delirium tremens. 8. Tobacco abuse. This patient has been highly advised against tobacco abuse. I will continue with daily cessation education.
[2016-05-21] MEDS: VANCOMYCIN 2,000 MG in NS 500 ML IV SCH ×2 (02:13→14:18)
[2016-05-21] MEDS: MORPHINE IV PRN ×5 (02:13→23:27)
[2016-05-21] MEDS: NORCO-7.5 PO PRN ×2 (04:28→10:35)
[2016-05-21] MEDS: ZOSYN 3.375 GM/NS 50 ML IV SCH ×4 (05:04→23:55)
[2016-05-21 06:43] LABS: MANUAL DIFF NEEDED? NO
[2016-05-21] MEDS: PRILOSEC PO SCH (06:48)
[2016-05-21 06:56] LABS: EOS# 0.38 X1000 (0.0-0.7); EOS% 2.3 % (0.0-10.0); HEMATOCRIT 27.3 % (42.0-52.0); HEMOGLOBIN 8.8 g/dL (14.0-18.0); IMM GRAN# 0.06 X1000 (0.0-0.04); IMM GRAN% 0.4 % (0.0-0.5); LYMPH# 1.13 X1000 (1.2-3.4); LYMPH% 6.9 % (20.5-51.1); MCH 26.8 PG (27-31); MCHC 32.2 g/dL (33-37); MCV 83.2 FL (81-99); MONO# 1.37 X1000 (0.11-0.59); MONO% 8.4 % (1.7-9.3); MPV 9.5 FL (7.4-10.4); PLT 676 X1000 (130-400); RBC 3.28 XMIL (4.7-6.1)
[2016-05-21 07:10] LABS: AGAP 13; BUN 9 mg/dL (8-22); CALCIUM 8.3 mg/dL (8.8-10.2); CHLORIDE 101 mmol/L (98-107); COSMO 271; POTASSIUM 3.4 mmol/L (3.5-5.1); SODIUM 136 mmol/L (136-145); TCO2 22 mmol/L (25-35)
[2016-05-21] MEDS: DUONEB (A & A) INH PRN (07:27)
[2016-05-21] MEDS ORDERED: KLOR-CON PO ONE (07:55)
--- NOTE | 2016-05-21 08:08 | Diag Imaging Result Document ---
PROCEDURE NAME: LUMBAR SPINE 2-VIEWS - 05/21/2016 LUMBAR SPINE, AP AND LATERAL: FINDINGS: There is osteophyte formation throughout most of the lumbar spine. There is no evidence of fracture or subluxation. The pedicles appear to be intact. IMPRESSION: Degenerative disk disease.
[2016-05-21] MEDS: NICODERM PATCH TD SCH (08:34)
[2016-05-21] MEDS: M.V.I.-12 10 ML, FOLIC ACID 1 MG, MAGNESIUM SULFATE 1 GM, THIAMINE 100 MG in NS 1,000 ML IV SCH (09:22)
[2016-05-21] MEDS: ATIVAN IV PRN ×4 (11:24→23:27)
[2016-05-21] MEDS: LEVAQUIN 750 MG/D5W 150 ML IV SCH (13:02)
--- NOTE | 2016-05-21 15:18 | PROGRESS NOTE ---
DATE: 05/21/2016 SUBJECTIVE: This patient states that he is feeling about the same. He is still complaining of back pain at the level of the right shoulder blade. He is not complaining of shortness of breath. He is not having fever or chills. He has a mild cough. OBJECTIVE: Vital Signs: Temperature 97.7 degrees, pulse 90, respiratory rate 20, blood pressure 97/64, oxygen saturation 92 on room air. HEENT: Head normocephalic. No trauma. PERRLA. Neck: Supple. No JVD. No masses. Central trachea. Chest: Right lower lung rhonchi and prolonged expiatory phase. Cardiovascular: RRR. No murmurs. Abdomen: Soft, nontender, nondistended. No hepatosplenomegaly. Extremities: No edema. Mild pain upon mobilization of the knees. No clubbing. No cyanosis. Neurological: The patient is alert and oriented x3. No focal deficits. LABORATORY: WBC 16.3, hemoglobin 8.8, hematocrit 27.3, platelets 676,000. Sodium 136, potassium 3.4, chloride 101, bicarbonate 22, BUN 9, creatinine 0.7, glucose 102, calcium 8.3. ASSESSMENT AND PLAN: 1. Right lower lung mass. Likely this is the source of his pain. We have a positive biopsy result that showed adenocarcinoma of the lung. Oncology department has been consulted, Dr. Drew. 2. Postobstructive pneumonia. I will continue with broad spectrum antibiotics. He is not having fever or chills. He has leukocytosis. 3. Hypokalemia. I will replace the potassium today. 4. Possible chronic obstructive pulmonary disease, not in exacerbation at this moment. The patient is still smoking. He is not complaining of shortness of breath at this moment. 5. Thrombocytosis, likely reactive. We will continue to monitor. 6. Anemia, likely secondary to chronic disease. Continue to monitor. Stable. 7. Alcohol abuse. This patient has been highly advised against alcohol abuse. I will continue Ativan p.r.n. in case of alcohol withdrawal or delirium tremens. 8. Tobacco abuse. This patient had been highly advised against tobacco abuse and I will continue with daily cessation education. He seems to understand.
--- NOTE | 2016-05-21 16:28 | Diag Imaging Result Document ---
PROCEDURE NAME: ABDOMEN/PELVIS W/WO CONTRAST - 05/21/2016 CT ABDOMEN AND PELVIS WITH AND WITHOUT IV AND ORAL CONTRAST: COMPARISON: CTA chest dated 05/14/2016. No prior CT of the abdomen and pelvis is available for comparison. FINDINGS: The known right lower lobe lung mass that has been seen on the previous CTA of the chest is again identified and is partially imaged. There is extensive atelectasis at the right lung base that has worsened since the previous study. The entire visualized portion of the right lower lobe is not aerated on the current study. There is a small right pleural effusion. There is also a small effusion on the left with adjacent mild atelectasis at the left lung base. The gallbladder is partially contracted and is otherwise unremarkable. There are few calcified granulomata in the spleen. There is a tiny hypodense focus involving the left hepatic lobe on image 27 of series 2 measuring up to 6.6 mm. This probably represents a tiny cyst, but is too small to accurately characterize. There is no definite associated enhancement. There is no evidence of metastatic disease to the liver, otherwise. There are a few small simple-appearing renal cysts bilaterally. The kidneys are unremarkable, otherwise. The adrenal glands are unremarkable. The pancreas is unremarkable. There are a few prostatic calcifications. The urinary bladder is unremarkable. There is a fair amount of stool in the colon. The GI tract is grossly unremarkable, otherwise. There are a few shotty periaortic lymph nodes that are small. No definite lymphadenopathy is appreciated, otherwise. No focal inflammatory changes, free abdominal gas, or free fluid is identified. There are degenerative changes involving the spine and the hips. There is no evidence of metastatic disease involving the lumbar spine or pelvis. IMPRESSION: 1. Partially imaged known mass in the right lower lung lobe with extensive atelectasis surrounding the mass that is worse than the previous study. 2. Bibasilar small pleural effusions. 3. Tiny hypodensity seen in the left hepatic lobe medially that probably represents a small cyst. No definite metastatic disease is identified involving the abdomen or pelvis otherwise. 4. Other incidental/nonacute findings detailed above.
[2016-05-21] MEDS: LOVENOX SUBQ SCH (17:10)
[2016-05-21] MEDS: NORCO-10 PO PRN ×2 (17:10→21:59)
[2016-05-22] MEDS: VANCOMYCIN 2,000 MG in NS 500 ML IV SCH ×2 (01:59→21:18)
[2016-05-22] MEDS: MORPHINE IV PRN ×2 (05:26→09:25)
[2016-05-22] MEDS: ZOSYN 3.375 GM/NS 50 ML IV SCH ×4 (05:27→23:37)
[2016-05-22] MEDS: ATIVAN IV PRN (05:27)
[2016-05-22] MEDS: PRILOSEC PO SCH (07:02)
[2016-05-22 07:47] LABS: AGAP 11; ALBUMIN 1.9 g/dL (3.5-5.0); ALKALINE PHOSPHATASE 105 U/L (32-122); BUN 8 mg/dL (8-22); CALCIUM 8.2 mg/dL (8.8-10.2); CHLORIDE 103 mmol/L (98-107); COSMO 271; GOT 18 U/L (10-34); GPT 21 U/L (10-44); POTASSIUM 3.4 mmol/L (3.5-5.1); SODIUM 136 mmol/L (136-145); TCO2 22 mmol/L (25-35); TOTAL BILIRUBIN 0.23 mg/dL (0.20-1.00); TOTAL PROTEIN 5.4 g/dL (6.3-8.3)
[2016-05-22 07:51] LABS: BASO% 0.6 % (0.0-0.8); EOS# 0.62 X1000 (0.0-0.7); EOS% 3.8 % (0.0-10.0); HEMOGLOBIN 8.5 g/dL (14.0-18.0); IMM GRAN# 0.06 X1000 (0.0-0.04); IMM GRAN% 0.4 % (0.0-0.5); LYMPH# 0.94 X1000 (1.2-3.4); LYMPH% 5.8 % (20.5-51.1); MANUAL DIFF NEEDED? YES; MCH 26.4 PG (27-31); MCHC 31.5 g/dL (33-37); MCV 83.9 FL (81-99); MONO# 1.12 X1000 (0.11-0.59); MONO% 6.9 % (1.7-9.3); MPV 9.5 FL (7.4-10.4); NEUT% 82.5 % (42.2-75.2); PLT 697 X1000 (130-400); RBC 3.22 XMIL (4.7-6.1)
[2016-05-22 08:00] LABS: LYMPHS 8 % (21-51); MONO 4 % (1-9)
[2016-05-22] MEDS: M.V.I.-12 10 ML, FOLIC ACID 1 MG, MAGNESIUM SULFATE 1 GM, THIAMINE 100 MG in NS 1,000 ML IV SCH ×2 (09:24→10:22)
[2016-05-22] MEDS: NICODERM PATCH TD SCH (09:24)
[2016-05-22] MEDS: NORCO-10 PO PRN (10:22)
[2016-05-22] MEDS ORDERED: KLOR-CON PO ONE (11:25)
[2016-05-22] MEDS: DILAUDID IV PRN ×4 (11:41→23:49)
--- NOTE | 2016-05-22 12:09 | PROGRESS NOTE ---
DATE: 05/22/2016 SUBJECTIVE: Mr. Penaloza is a 51-year-old, ill-appearing, male, who states that he is in no acute distress, but that he has severe pain in his joints, primarily in his knees and ankles in which these joints are also swollen. Otherwise, he has no complaints. OBJECTIVE: Vital Signs: Temperature 98.1, heart rate 81, respiratory rate 19, blood pressure 102/56, O2 saturation 95% on room air. General: Mr. Penaloza is a 51-year-old, ill-appearing, male, very cachectic, but is able to answer all questions appropriately. Cardiovascular: S1, S2, regular rate and rhythm. No rubs, gallops, murmurs. Pulmonary: Clear to auscultation. Bilateral breath sounds. Decreased in the bases. No accessory muscle use or work of breathing noted. Currently on room air. GI: Soft, nontender, nondistended. Positive bowel sounds x4. Extremities: No edema noted, but there is inflammation or swelling around the bilateral knee joints and the ankle joints, +2 dorsalis pedal pulses, +2 radial pulses. Neuro: Alert and oriented x4. Moves all extremities equally. LABORATORY DATA: White blood cells 16,000, hemoglobin 8, hematocrit 27, platelet count 697. Sodium 136, potassium 3.4, BUN 8, creatinine 0.7 glucose 113, calcium 8.2, albumin 1.9. IMAGING: On 05/21/2016, abdomen/pelvic CT showed partially imaged known mass of the right lower lung with extensive atelectasis surrounding the mass that is worse than the previous study. Also shows bilateral pleural effusions that are small. Shows a small hypodensity of the left hepatic lobe, that likely represents a small cyst, but no metastasis of the abdomen and pelvis. Also, on 05/21/2016, lumbar spine x-ray. Just says degenerative disk disease. ASSESSMENT AND PLAN: 1. Adenocarcinoma of the right lower lung with a positive biopsy. Dr. Drew with Oncology has been consulted for further treatment recommendations. 2. Postobstructive pneumonia on the right. Negative for chills. Negative fever. He still has a leukocytosis of white count of 16,000 and elevated platelet count 697. We will continue with antibiotics, vancomycin, Zosyn, Levaquin. 3. Hypokalemia. Potassium level was only 3.4 this morning. We will give a one time dose of 40 mEq of potassium and repeat potassium levels in the morning. 4. Possible chronic obstructive pulmonary disease. No exacerbation at this time. Currently on room air. Continues to smoke. No shortness of breath. Continue turn, cough, deep breathe exercises. Pulmonary toilet. Continue with q.2 hour albuterol/Atrovent p.r.n. nebulizers. 5. Tobacco abuse. Cessation discussed. Nicotine patch is continuing. 6. Thrombocytosis. This is likely from inflammatory response of infection. 7. Anemia, stable. No signs or symptoms of bleeding. 8. History of alcohol abuse. There is Ativan p.r.n. for withdrawal. He is out of his window for delirium tremens. 9. Deep venous thrombosis prophylaxis. Lovenox 40 subcutaneous every 24 hours. 10. Gastrointestinal prophylaxis. Prilosec 40 p.o. daily. 11. Significant joint pain, specifically bilateral knees, secondary to arthritis. Pain medication has been increased to Percocet and Dilaudid p.r.n. Dictated by SOPHIA Hicks for Raffi Peters MD
[2016-05-22] MEDS: LEVAQUIN 750 MG/D5W 150 ML IV SCH (13:45)
[2016-05-22] MEDS: LOVENOX SUBQ SCH (16:28)
[2016-05-22] MEDS: PERCOCET-5 PO PRN ×2 (16:32→21:17)
[2016-05-23] MEDS: PERCOCET-5 PO PRN ×5 (01:58→22:58)
[2016-05-23] MEDS: ZOSYN 3.375 GM/NS 50 ML IV SCH ×4 (04:41→23:28)
[2016-05-23] MEDS: DILAUDID IV PRN ×5 (05:33→21:05)
[2016-05-23] MEDS: PRILOSEC PO SCH (06:06)
[2016-05-23 07:05] LABS: MANUAL DIFF NEEDED? NO
[2016-05-23 07:27] LABS: BASO% 0.4 % (0.0-0.8); EOS# 0.63 X1000 (0.0-0.7); EOS% 4.4 % (0.0-10.0); HEMATOCRIT 27.6 % (42.0-52.0); HEMOGLOBIN 8.7 g/dL (14.0-18.0); IMM GRAN# 0.04 X1000 (0.0-0.04); IMM GRAN% 0.3 % (0.0-0.5); LYMPH# 0.69 X1000 (1.2-3.4); LYMPH% 4.9 % (20.5-51.1); MCH 26.4 PG (27-31); MCHC 31.5 g/dL (33-37); MCV 83.9 FL (81-99); MONO# 0.92 X1000 (0.11-0.59); MONO% 6.5 % (1.7-9.3); MPV 9.5 FL (7.4-10.4); NEUT% 83.5 % (42.2-75.2); PLT 692 X1000 (130-400); RBC 3.29 XMIL (4.7-6.1)
[2016-05-23 07:34] LABS: AGAP 12; ALKALINE PHOSPHATASE 119 U/L (32-122); BUN 8 mg/dL (8-22); CALCIUM 8.6 mg/dL (8.8-10.2); CHLORIDE 102 mmol/L (98-107); COSMO 268; GOT 17 U/L (10-34); GPT 17 U/L (10-44); MAGNESIUM 1.8 mg/dL (1.5-2.7); POTASSIUM 3.3 mmol/L (3.5-5.1); SODIUM 135 mmol/L (136-145); TCO2 21 mmol/L (25-35); TOTAL BILIRUBIN 0.32 mg/dL (0.20-1.00); TOTAL PROTEIN 5.5 g/dL (6.3-8.3)
--- NOTE | 2016-05-23 08:44 | CONSULTATION ---
DATE OF CONSULTATION: 05/23/2016 ADMITTING PHYSICIAN: Benji Gimenez MD. REQUESTING PHYSICIAN: Dr. Benji Gimenez. We appreciate this consult. CHIEF COMPLAINT: Lung mass. HISTORY OF PRESENT ILLNESS: Mr. Penaloza is a pleasant, 50-year-old male who presented to [facility] with reports of bilateral foot pain and knee pain for 2 months. He reports that he has had joint pain for some time now. Additionally, he is reporting he has had a cough for the last 2 months. The patient reports that he has had a decrease in appetite as well, with a weight loss of unspecified amount. Upon presentation to [facility], the patient did undergo a chest x-ray, which revealed a right lower lobe mass. The patient underwent fine needle aspiration, CT-guided biopsy. Results of biopsy are currently pending. The patient is presently lying supine in bed. Somewhat diaphoretic, but otherwise in no immediate distress. PAST MEDICAL HISTORY: The patient has no significant health problems. PAST SURGICAL HISTORY: The patient has had no surgeries. SOCIAL HISTORY: The patient has a 60 pack-year history of smoking cigarettes. He drinks 5-6 beers daily. He does not use illicit drugs. FAMILY HISTORY: Significant for a sister that from an unspecified cancer. Additionally, the patient has 2 grandfathers that from cancer. MEDICATIONS ON ADMISSION: None. ALLERGIES: The patient has no known drug allergies. REVIEW OF SYSTEMS: A 14 point review of systems was obtained and is negative except for as mentioned in HPI. PHYSICAL EXAM: General: Mr. Penaloza is a 50-year-old, male, lying supine in bed in no apparent distress. HEENT: Normocephalic, atraumatic. Mucous membranes are pink and moist. Sclerae is anicteric. Extraocular movements intact. Neck: Supple. Lungs: Lungs with scattered rhonchi throughout. Chest expansion is equal bilaterally. CV: S1, S2 is heard without murmur, rub or gallop. Abdomen: Soft, nondistended, nontender. Bowel sounds positive all quadrants. No rebound or guarding noted. Extremities: Without clubbing, cyanosis, or edema. Dermatologic: No rashes, bruises or lesions. Neurologic: The patient is awake, alert and oriented x3. He has no focal deficits at this time. LABORATORY DATA: Sodium 136, potassium 3.4, chloride 101, CO2 is 22, BUN 9, creatinine 0.7, glucose is 102. Hemoglobin 8.8, hematocrit 27.3, white blood cell count is 16.34, platelets 676. IMAGING STUDIES: CT angiogram reveals right lower lobe mass with probable bronchial stenosis and right hilar adenopathy as well as severe COPD. ASSESSMENT AND PLAN: 1. Right lower lobe mass with fine-needle aspiration, CT-guided biopsy. Pathology report pending. We will check CEA, LDH and CT of the abdomen and pelvis. We will follow along and discuss treatment plan upon diagnosis with follow up in clinic. 2. Pneumonia. The patient is currently on antibiotics with Pulmonology on board. Would continue nebulizer treatments as ordered. 3. Alcohol dependence. The patient is currently on a banana bag with Ativan ordered p.r.n. 4. Tobacco dependence which continued nicotine patch and have discussed smoking cessation. The patient has no quit plan at this time. We will follow along with you and make further recommendations pending outcomes. The above reflects the history, exam, assessment and plan of Dr. Ku. Dictated by SOPHIA Alberts for Sidney Ku MD
[2016-05-23] MEDS: M.V.I.-12 10 ML, FOLIC ACID 1 MG, MAGNESIUM SULFATE 1 GM, THIAMINE 100 MG in NS 1,000 ML IV SCH (09:55)
[2016-05-23] MEDS: NICODERM PATCH TD SCH (10:01)
[2016-05-23] MEDS: PHENERGAN IV PRN ×2 (10:29→17:34)
[2016-05-23] MEDS: SODIUM CHLORIDE 0.9% INJ PRN ×2 (10:30→17:34)
[2016-05-23] MEDS: VANCOMYCIN 2,000 MG in NS 500 ML IV SCH (13:33)
--- NOTE | 2016-05-23 14:43 | Diag Imaging Result Document ---
PROCEDURE NAME: CHEST-PORTABLE - 05/23/2016 SINGLE FRONTAL RADIOGRAPH OF THE CHEST: COMPARISON: 05/20/2016. FINDINGS: There is increasing opacity at the right lung base adjacent to a known right lower lung zone mass. There is probably an effusion that is increasing on the right as well. The left lung is clear. Cardiac silhouette is unremarkable. IMPRESSION: Increasing opacity at the right lung base suggesting worsening consolidation and/or effusion adjacent to the known mass at the right lung base.
[2016-05-23] MEDS ORDERED: KLOR-CON PO ONE (14:46)
--- NOTE | 2016-05-23 16:58 | PROGRESS NOTE ---
DATE: 05/23/2016 SUBJECTIVE: Mr. Penaloza is a 51-year-old, ill-appearing, male, who is in no acute distress. He states that his severe joint pain that he had yesterday is much more relieved since this pain medication regimen has been changed. The swelling in his knee joints and ankle joints is also decreased. OBJECTIVE: Temperature 97.7 degrees, heart rate 92, respiratory rate 21, blood pressure 100/60, O2 saturation 94% on room air.General: Mr. Penaloza is a 51-year-old male in no acute distress. Able to answer all questions appropriately. Cardiovascular: S1, S2. Regular rate and rhythm. No rubs, gallops, murmurs. Pulmonary: Clear to auscultate bilateral breath sounds. No accessory muscle use or work of breathing noted . GI: Soft, nontender, nondistended. Positive bowel sounds x4. Extremities: No edema noted but there is inflammation around the knee and ankle joints which is less than yesterday. +2 dorsalis and radial pulses. Neurologic: A and O x4. Moves all extremities equally. LABORATORY DATA: White blood cells 14,000, hemoglobin 8.7, hematocrit 27.6, platelet count 692,000. Sodium 135, potassium 3.3, BUN is 8, creatinine 0.9, glucose 97, calcium 8.6, albumin is 2.0. IMAGING: Chest x-ray, increased opacity at the right lung base suggesting worsening consolidation and/or effusion adjacent to the known mass at the right lung base. ASSESSMENT AND PLAN: 1. Adenocarcinoma of the right lower lung with a positive biopsy. Dr. Ku with Oncology will be following. 2. Postobstructive pneumonia on the right with the effusion. Negative for chills or fever. White blood cell count dropped to 14,000. We will continue with vancomycin, Zosyn and Levaquin. 3. Hypokalemia. Potassium 3.3. Will give another dose of 40 mEq potassium. 4. Possible COPD. No exacerbation. Continue on current treatment. 5. Tobacco abuse. Cessation continued to be discussed. Continue nicotine patch. 6. Thrombocytosis likely inflammatory secondary to a response to infection. 7. Anemia which is stable. 8. History of alcohol abuse. 9. Deep venous thrombosis prophylaxis. Lovenox. 10. Gastrointestinal prophylaxis. Prilosec. 11. Significant joint pain with arthritis bilateral knees and ankles. Swelling is down. Change of pain medication regimen has helped with his pain. Dictated by SOPHIA Hicks for Raffi Peters MD
[2016-05-23] MEDS: LEVAQUIN 750 MG/D5W 150 ML IV SCH (17:33)
[2016-05-23] MEDS: LOVENOX SUBQ SCH (17:33)
[2016-05-23] MEDS: DUONEB (A & A) INH PRN ×3 (19:29→22:26)
[2016-05-24] MEDS: DILAUDID IV PRN ×5 (01:29→20:11)
[2016-05-24] MEDS: ZOSYN 3.375 GM/NS 50 ML IV SCH ×4 (05:10→22:10)
[2016-05-24] MEDS: PRILOSEC PO SCH (06:29)
[2016-05-24] MEDS: PERCOCET-5 PO PRN ×5 (07:24→22:13)
[2016-05-24] MEDS: PHENERGAN IV PRN (07:25)
[2016-05-24] MEDS: SODIUM CHLORIDE 0.9% INJ PRN (07:25)
[2016-05-24] MEDS: DUONEB (A & A) INH PRN ×2 (07:41→20:03)
[2016-05-24 07:49] LABS: MANUAL DIFF NEEDED? NO
[2016-05-24 07:56] LABS: BASO% 0.5 % (0.0-0.8); EOS% 3.8 % (0.0-10.0); HEMOGLOBIN 8.2 g/dL (14.0-18.0); IMM GRAN# 0.04 X1000 (0.0-0.04); IMM GRAN% 0.3 % (0.0-0.5); LYMPH# 0.74 X1000 (1.2-3.4); LYMPH% 5.6 % (20.5-51.1); MCH 26.4 PG (27-31); MCHC 31.5 g/dL (33-37); MCV 83.6 FL (81-99); MONO# 0.83 X1000 (0.11-0.59); MONO% 6.3 % (1.7-9.3); MPV 9.6 FL (7.4-10.4); NEUT% 83.5 % (42.2-75.2); PLT 733 X1000 (130-400); RBC 3.11 XMIL (4.7-6.1)
[2016-05-24 08:04] LABS: ALBUMIN 1.9 g/dL (3.5-5.0); MAGNESIUM 1.9 mg/dL (1.5-2.7); POTASSIUM 3.5 mmol/L (3.5-5.1); TOTAL BILIRUBIN 0.19 mg/dL (0.20-1.00); TOTAL PROTEIN 5.1 g/dL (6.3-8.3)
[2016-05-24] MEDS: NS 1,000 ML IV SCH ×2 (08:56→22:11)
[2016-05-24] MEDS: NICODERM PATCH TD SCH (08:56)
--- NOTE | 2016-05-24 09:35 | Diag Imaging Result Document ---
PROCEDURE NAME: CT THORAX W/CONTRAST - 05/24/2016 CT CHEST WITH INTRAVENOUS CONTRAST: COMPARISON: 05/14/2016 FINDINGS: There is significant progression in the right lower lobe mass/consolidation, which now nearly completely fills the right lower lobe. There is stable right hilar adenopathy. There are some new small bilateral pleural effusions. Stable severe COPD. Heart and great vessels remain normal. Bony structures are intact. IMPRESSION: Significant progression in consolidation of the right lower lobe. The segmental bronchi are severely compressed. New small bilateral pleural effusions.
[2016-05-24] MEDS ORDERED: ALBUMIN 25% IV ONE (10:00)
[2016-05-24] MEDS: ZYVOX PO SCH ×2 (11:34→22:40)
[2016-05-24] MEDS: M.V.I.-12 10 ML, FOLIC ACID 1 MG, MAGNESIUM SULFATE 1 GM, THIAMINE 100 MG in NS 1,000 ML IV SCH (11:34)
--- NOTE | 2016-05-24 11:38 | PROGRESS NOTE ---
DATE: 05/24/2016 SUBJECTIVE: Mr. Penaloza is a 51-year-old, ill-appearing male. He is in no acute distress. He states that all of his joint pains are feeling much better. The swelling in his joints is stable. He does state that he has noticed a little more shortness of breath than usual. His CT this morning has revealed that there is significant progression and consolidation of the right lower lobe with some new small bilateral pleural effusions, although his COPD is stable. White blood cell count continues to decrease. He is still afebrile. His O2 saturations are anywhere from 90% to 94% on nasal cannula, but he has had an increase in serum creatinine so one of his antibiotics had to be stopped. We consulted Dr. Mehta with infectious disease for further recommendations. OBJECTIVE: Vital Signs: On physical exam, temperature 98.8 degrees, heart rate 86, respiratory rate 21, blood pressure 118/68, O2 saturation 94% on nasal cannula. General: Mr. Penaloza is a 51- year-old male in no acute distress, able to answer all questions appropriately. Cardiovascular: S1, S2 regular rate and rhythm. No rubs, gallops, murmurs. Pulmonary: Clear to auscultation. Bilateral breath sounds decreased in the bases. No accessory muscle use or work of breathing noted. GI: Soft, nontender, nondistended. Positive bowel sounds times four. Skin: Warm, dry and intact. Extremities: Swelling in the knees and ankles and feet still noted. There are +2 dorsalis and radial pulses. Neurologic: Alert and oriented x4. Moves all extremities equally. LABORATORY DATA: White blood cells 13,000, hemoglobin 8, hematocrit 26, platelet count is up to 733. Sodium 136, potassium 3.5, BUN 12, creatinine. 1.7. Glucose 110, calcium 8.0, phosphorus 3.2, magnesium 1.9. Total bilirubin 0.19. AST 17, ALT 14, alkaline phosphatase is 145. Total protein 5.1, albumin is 1.9. IMAGING: Chest CT: Significant progression and consolidation of the right lower lobe. Segmental bronchi are severely compressed. New small bilateral pleural effusions noted. Per. ASSESSMENT AND PLAN: 1. Adenocarcinoma of the right lower lobe, now with increase in consolidations and bilateral pleural effusions. Dr. Drew is following. 2. Postobstructive pneumonia on the right, increasing. Denies fever or chills, but does state that he has some increasing shortness of breath. He does continue to have elevated white count, but it is down to 13,000 now. Will continue Zosyn and Levaquin, but vancomycin has been stopped given the increase in his creatinine. Dr. Mehta has been consulted for further recommendations. 3. Hypokalemia, currently stable at 3.5. 4. Chronic obstructive pulmonary disease. No exacerbation. Continue current treatment. 5. Tobacco abuse. Cessation has been discussed. Nicotine patch continued. 6. Thrombocytosis. Continues to increase. This is still likely secondary to inflammation or infection. 7. Anemia that is stable. 8. History of alcohol abuse. 9. Joint inflammation and pain from arthritis, stable. 10. Severe protein calorie malnutrition. Patient encouraged to increase dietary intake. Albumin level is 1.9. Will give 1 dose of albumin today and continue to trend daily. 11. Deep venous thrombosis prophylaxis. Lovenox. 12. Gastrointestinal prophylaxis. Prilosec. Dictated by SOPHIA Hicks for Raffi Peters MD
[2016-05-24 11:56] LABS: URINE CULTURE NEEDED? NO; URINE MICRO REVIEW NEEDED? NO; URINE SOURCE CLEAN CATCH
[2016-05-24 12:02] LABS: BILIRUBIN URINE NEGATIVE (NEGATIVE); BLOOD URINE NEGATIVE (NEGATIVE); COLOR YELLOW; GLUCOSE URINE NEGATIVE (NEGATIVE); LEUKOCYTES URINE NEGATIVE (NEGATIVE); NITRITE URINE NEGATIVE (NEGATIVE); PROTEIN URINE NEGATIVE (NEGATIVE); SP GRAVITY URINE 1.023; TURBIDITY URINE CLEAR (CLEAR); UR EPITHELIAL CELLS <10 /HPF (<10); URINE BACTERIA NEGATIVE /HPF; URINE RBC <10 /HPF (<10); URINE WBC <10 /HPF (<10); UROBILINOGEN URINE NORMAL (NORMAL)
[2016-05-24 12:17] LABS: UR CREAT RANDOM 33.6 mg/dL (14-26)
--- NOTE | 2016-05-24 12:50 | CONSULTATION ---
DATE OF CONSULTATION: 05/24/2016 CONCLUSION: The patient has just been diagnosed as having adenocarcinoma of the right lower lobe. In addition, there appears to be a pneumonia complicating the malignancy. Today, the patient's creatinine has increased as well. RECOMMENDATIONS: I would agree with treating with Bettysyn. I plan to stop Levaquin and vancomycin. I will add Zyvox p.o. DISCUSSION: The patient was recently diagnosed as having cancer of the lung by percutaneous needle biopsy. He has a right lung mass and on CT scan, there has been significant progression of the right lower lobe mass. LABS: The patient's CBC shows a white count of 13,280, hemoglobin 8.2 and platelet count 733,000. Creatinine is 1.7. GFR is 43. Blood cultures are sterile. The patient is not coughing up any sputum. REVIEW OF SYSTEMS: Eyes and Ears: He denies difficulty hearing. He said he has had a little change in his vision. Neck: No stiffness. Respiratory: The patient has not had coughing or dyspnea. Cardiovascular: No chest pain or palpitations. GI: No nausea or vomiting. He has lost approximately 15 pounds. He states that once a day, he will have a loose stool and this has been going on for 3 months. : No dysuria or flank pain. Neurologic: No motor or sensory loss. No seizure. Endocrine: No history of diabetes or thyroid disease. Bones, joints, muscles: The patient says that his knees have been swelling and hurting him for the past 3 months. The remainder of the patient's review of systems was completed and was negative. PAST MEDICAL HISTORY: Previous hospitalizations and operations: This is the first time the patient has been in a hospital. Medical diseases: Negative for diabetes mellitus and hypertension. Infectious disease history: Negative for pneumonia and UTI. FAMILY HISTORY: Positive for diabetes mellitus, hypertension, myocardial infarction, and cancer. SOCIAL HISTORY: [place] He smokes cigarettes, drinks alcoholic beverages. Does not abuse drugs. ALLERGIES: He has no known drug allergies. MEDICATIONS: He does not take any medicine at home. He lives with a female. He has a son by another woman. PHYSICAL EXAMINATION: Vital Signs: Temperature is 98.8, pulse 86, respirations 21, blood pressure 118/68. General: This is a chronically ill-appearing, middle-aged male who is in no acute distress. HEENT: He can hear my spoken words and see near objects. He is missing most of his teeth. The teeth he has are in very poor dental hygiene. Neck: No meningismus. Thorax: No increased AP diameter of the chest. Lungs: There were diminished breath sounds in the right base. Cardiovascular: Heart rate is regular. Abdomen: Soft and not tender. Bones, joints, muscles: The patient moved both knees without much pain. There was no erythema. I did not detect any effusions in the knees. Neurologic: Patient is alert. He can move his extremities. There is no tremor. His sensation was intact to touch. His memory appeared to be intact as regarding his medical history. Integument: I did not see any rashes. Thank you for the consult.
[2016-05-24] MEDS: LOVENOX SUBQ SCH (15:47)
[2016-05-25] MEDS: DILAUDID IV PRN ×6 (01:16→21:34)
[2016-05-25] MEDS: PERCOCET-5 PO PRN ×5 (04:16→23:10)
[2016-05-25] MEDS: ZOSYN 3.375 GM/NS 50 ML IV SCH ×3 (04:16→21:14)
[2016-05-25] MEDS: NS 1,000 ML IV SCH ×2 (05:02→16:18)
[2016-05-25] MEDS: PRILOSEC PO SCH (05:59)
[2016-05-25 06:29] LABS: BASO% 0.8 % (0.0-0.8); EOS# 0.65 X1000 (0.0-0.7); EOS% 4.8 % (0.0-10.0); HEMATOCRIT 25.2 % (42.0-52.0); IMM GRAN# 0.06 X1000 (0.0-0.04); IMM GRAN% 0.4 % (0.0-0.5); LYMPH# 0.77 X1000 (1.2-3.4); LYMPH% 5.6 % (20.5-51.1); MANUAL DIFF NEEDED? YES; MCH 26.2 PG (27-31); MCHC 31.7 g/dL (33-37); MCV 82.6 FL (81-99); MONO# 0.95 X1000 (0.11-0.59); MPV 9.4 FL (7.4-10.4); NEUT% 81.4 % (42.2-75.2); PLT 721 X1000 (130-400); RBC 3.05 XMIL (4.7-6.1)
[2016-05-25 06:49] LABS: ALBUMIN 1.9 g/dL (3.5-5.0); CALCIUM 7.8 mg/dL (8.8-10.2); MAGNESIUM 1.9 mg/dL (1.5-2.7); POTASSIUM 3.3 mmol/L (3.5-5.1); TOTAL BILIRUBIN 0.2 mg/dL (0.20-1.00); TOTAL PROTEIN 5.3 g/dL (6.3-8.3)
[2016-05-25 07:13] LABS: BANDS 2 % (0-1); EOS 6 % (1-10); LYMPHS 10 % (21-51); MONO 2 % (1-9)
[2016-05-25] MEDS: NICODERM PATCH TD SCH (08:40)
[2016-05-25 08:58] LABS: IRON SATURATION 8 %; TIBC 121 ug/dL; TOTAL IRON 10 ug/dL (53-167); UNBOUND IRON 111 ug/dL (112-346)
[2016-05-25] MEDS: M.V.I.-12 10 ML, FOLIC ACID 1 MG, MAGNESIUM SULFATE 1 GM, THIAMINE 100 MG in NS 1,000 ML IV SCH ×2 (10:19→12:49)
[2016-05-25] MEDS: ZYVOX PO SCH ×2 (11:18→23:10)
[2016-05-25] MEDS ORDERED: KLOR-CON PO ONE (14:08)
--- NOTE | 2016-05-25 15:40 | PROGRESS NOTE ---
DATE: 05/25/2016 SUBJECTIVE: Mr. Penaloza is a 51-year-old ill-appearing male who is in no acute distress. States that this joints a little bit more achy today and his right hand is cramping. He continues to state that he feels little more short of breath than usual. He has used 2 respiratory treatments that p.r.n. and upon auscultation he does have expiratory wheezes. His most recent chest CT revealed a significant progression and consolidation of the right lower lobe and new small bilateral pleural effusions although his COPD is stable. His white count has had no change from yesterday to today, continues to be afebrile and is saturating anywhere from 90 to 95% on and off nasal cannula. PHYSICAL EXAMINATION: Vital Signs: Temperature 98.2 degrees, heart rate 86, respiratory rate 18, blood pressure 120/66, O2 saturation % on room air. General: Mr. Penaloza is a 51-year- old ill-appearing male, no acute distress. Able to answer all questions appropriately. Cardiovascular: S1, S2. Regular rate and rhythm. No rubs, gallops, murmurs. Pulmonary: Expiratory wheezes throughout decreased in the right base, was on nasal cannula in the room. GI: Soft, nontender, nondistended. Positive bowel sounds x4. Extremities: Swelling in the joints noted, trace edema in both pedal, he has got +2 pedal pulses and +2 radial pulses. Neurologic: A and O x4. Moves all extremities equally. LABORATORY DATA: White blood cells 13,000, hemoglobin 8, hematocrit 25, platelet count is 721,000. Sodium 138, potassium 3.3, BUN 13, creatinine is 1.8, glucose 113, calcium 7.8., phosphorus 3.1, magnesium 1.9. Iron is 10, total iron binding capacity is 121 , saturation 8, unsaturated iron is 111, ferritin is 424. Bilirubin 0.2, AST 14, ALT 9, alkaline phosphatase is 132, albumin 1.9, folate 17. Urinalysis negative. Urine creatinine 33.6, urine sodium 26. IMAGING: None today but did have a chest CT on 05/24/2016 which showed significant progression and consolidation of the right lower lobe and segmental bronchi are severely compressed, new small bilateral pleural effusions. ASSESSMENT AND PLAN: 1. Adenocarcinoma of the right lower lobe with consolidations and bilateral effusions, Dr. Drew following. 2. Postobstructive pneumonia on the right which is increasing, denies fever, chills, his shortness of breath is increasing. White count continues to be 13,000. Zosyn continued but vancomycin and Levaquin were discontinued and started on Zyvox by Dr. Mehta. 3. Hypokalemia 3.3. Will give 20 mEq. 4. Chronic obstructive pulmonary disease mild exacerbation as he has expiratory wheezes throughout. He was continued on p.r.n. respiratory treatments that we had scheduled q.6 hours, albuterol Atrovent nebs with budesonide twice a day and acetylcysteine twice a day p.r.n. home oxygen. 5. Tobacco abuse. Cessation discussed. Nicotine patch continued. 6. Thrombocytosis is currently in the 700s secondary to inflammation or infection. 7. Anemia now is iron deficiency anemia and iron supplementations been added. 8. Alcohol abuse history. 9. Joint inflammation and pain from arthritis currently stable. 10. 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 11. Severe protein calorie malnutrition. Continue to encourage increased dietary intake, albumin level still 1.9, will give 25% albumin twice daily x4 doses. 12. Deep venous thrombosis prophylaxis Lovenox. 13. Gastrointestinal prophylaxis. Prilosec. Dictated by SOPHIA Hicks for Igor Barrientos MD MTDD
[2016-05-25] MEDS: DUONEB (A & A) INH SCH ×2 (16:00→21:38)
[2016-05-25] MEDS: ALBUMIN 25% IV SCH (16:18)
--- NOTE | 2016-05-25 17:34 | PROGRESS NOTE ---
DATE: 05/25/2016 PRESENT ILLNESS: The patient has carcinoma of the right lower lobe. He also has a pneumonia complicating the cancer. The patient's creatinine has increased also. MEDICATIONS: The patient currently is receiving Zyvox and Zosyn. PHYSICAL EXAMINATION: Vital signs: Temperature is 97.9, pulse 82, respirations 16, blood pressure 109/88. General: This is a chronically ill-appearing, middle-aged male. He is in no acute distress. Lungs: Clear to auscultation. Cardiovascular: Regular heart rate. Abdomen: Soft and nontender. ENT: The patient is missing most of her teeth and the ones he has are in very poor condition. LABS AND X-RAY: There is no new chest x-ray or CT scan today. The patient's laboratory studies for today shows a CBC with a white count of 13,650, hemoglobin 8, platelet count 721,000. Creatinine is 1.8. GFR is 40. Blood cultures are still. The patient has been unable to produce a good quality sputum. ASSESSMENT AND PLAN: The patient has pneumonia complicating lung cancer. The plan would be to continue his current antibiotics. The patient's comorbidity is he smokes cigarettes, he has lung cancer. He also drinks alcoholic beverages.
[2016-05-25] MEDS: ICAR-C PO SCH (21:23)
[2016-05-25] MEDS: LOVENOX SUBQ SCH (21:28)
[2016-05-25] MEDS: PULMICORT INH SCH (21:38)
[2016-05-25] MEDS: MUCOMYST 20% INH SCH (21:38)
[2016-05-26] MEDS: ZOSYN 3.375 GM/NS 50 ML IV SCH ×4 (02:02→19:56)
[2016-05-26] MEDS: DILAUDID IV PRN ×7 (02:18→22:55)
[2016-05-26] MEDS: ALBUMIN 25% IV SCH ×2 (02:41→14:39)
[2016-05-26] MEDS: DUONEB (A & A) INH SCH ×4 (03:34→22:20)
[2016-05-26] MEDS: PERCOCET-5 PO PRN ×4 (03:53→18:30)
[2016-05-26] MEDS: PRILOSEC PO SCH (05:59)
[2016-05-26 06:40] LABS: MANUAL DIFF NEEDED? NO
[2016-05-26 07:01] LABS: BASO% 0.9 % (0.0-0.8); EOS# 0.71 X1000 (0.0-0.7); EOS% 4.7 % (0.0-10.0); HEMATOCRIT 23.2 % (42.0-52.0); HEMOGLOBIN 7.3 g/dL (14.0-18.0); IMM GRAN# 0.08 X1000 (0.0-0.04); IMM GRAN% 0.5 % (0.0-0.5); LYMPH# 1.03 X1000 (1.2-3.4); LYMPH% 6.9 % (20.5-51.1); MCHC 31.5 g/dL (33-37); MCV 82.6 FL (81-99); MONO# 1.09 X1000 (0.11-0.59); MONO% 7.3 % (1.7-9.3); MPV 9.3 FL (7.4-10.4); NEUT% 79.7 % (42.2-75.2); PLT 693 X1000 (130-400); RBC 2.81 XMIL (4.7-6.1)
[2016-05-26 07:07] LABS: ALBUMIN 2.1 g/dL (3.5-5.0); POTASSIUM 3.6 mmol/L (3.5-5.1); TOTAL BILIRUBIN 0.16 mg/dL (0.20-1.00); TOTAL PROTEIN 4.8 g/dL (6.3-8.3)
[2016-05-26] MEDS: MUCOMYST 20% INH SCH ×2 (08:23→22:20)
[2016-05-26] MEDS: PULMICORT INH SCH ×2 (08:23→22:20)
[2016-05-26] MEDS: NICODERM PATCH TD SCH (08:53)
[2016-05-26] MEDS: ICAR-C PO SCH ×2 (08:53→20:01)
[2016-05-26] MEDS: NS 1,000 ML IV SCH (08:54)
[2016-05-26] MEDS: MUCOMYST 20% PO SCH ×2 (09:54→22:00)
[2016-05-26] MEDS ORDERED: MAGNESIUM SULFATE IV SCH (10:45)
[2016-05-26] MEDS ORDERED: M V I IV SCH (10:45)
[2016-05-26] MEDS ORDERED: NS IV SCH (10:45)
[2016-05-26] MEDS ORDERED: FOLIC ACID IV SCH (10:45)
[2016-05-26] MEDS: SODIUM BICARBONATE 8.4% 150 MEQ in D5W 1,000 ML IV SCH (10:52)
[2016-05-26] MEDS: ZYVOX PO SCH ×2 (10:53→20:02)
[2016-05-26] MEDS: VITAMIN B-1 PO SCH (11:32)
--- NOTE | 2016-05-26 13:58 | PROGRESS NOTE ---
DATE: 05/26/2016 SUBJECTIVE: Mr. Penaloza states that his achy joints feel better. His shortness of breath has somewhat improved. On auscultation, expiratory wheezes have resolved since his respiratory treatments have been scheduled. 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 He is requiring continuous nasal cannula. His hemoglobin and hematocrit had somewhat dropped. He may benefit from Lasix possibly. Otherwise, patient has no new complaints. OBJECTIVE: Vital Signs: Temperature 98.1 degrees, heart rate, 24, respiratory rate 16, blood pressure 106/59, O2 saturation 97% on 2 L nasal cannula and 90% on room air. General: Mr. Penaloza is an ill-appearing male, 51 years old. He is in no acute distress. He is able to answer all questions appropriately. Cardiovascular: S1, S2. Regular rate and rhythm. No rubs, gallops, or murmurs. Pulmonary: Clear to auscultation. Bilateral breath sounds, decreased in the right base with some crackles noted that are very trace or faint upon auscultation. GI: Soft, nontender, nondistended. Positive bowel sounds x4. Neurologic: A and O x4. Moves all extremities equally. Extremities: Inflammation in the ankles and the knees, the wrists and elbows, otherwise stable. He moves them equally and has +2 and +3 dorsalis pedal pulses and +2 radial pulses. LABORATORY DATA: White blood cells 14,000, hemoglobin 7.3, hematocrit 23.2, platelet count 693. Sodium 141, potassium 3.6, BUN 15, creatinine is 1.9, glucose 99, calcium 8.0, total bilirubin 0.16. AST 10 and ALT 9. Alkaline phos 126. Total protein 4.8. Albumin is 2.1. Vitamin B 12 598. IMAGING: None. ASSESSMENT AND PLAN: 1. Adenocarcinoma of the right lower lobe with consolidations and bilateral effusions followed by Dr. Drew. 2. Postobstructive pneumonia on the right which is increasing per the CT. He still denies any fever or chills. He states that he has increase in his shortness of breath which is better than it was yesterday. His albuterol/Atrovent nebulizers were scheduled, and he states that this helped. A white blood cell count has decreased from 13,000 yesterday to 14,000 a day. Antibiotic regimen per Dr. Mehta is Zyvox 600 mg oral every 12 hours and Zosyn 3.375 intravenous every 6 hours. 3. Hypokalemia, stable. 4. Chronic obstructive pulmonary disease. Did have some mild exacerbation and has improved. He is requiring nasal cannula. Scheduled his albuterol/Atrovent nebs. Added acetylcysteine and budesonide. 5. Tobacco abuse cessation discussed. Nicotine patch continued. 6. Thrombocytosis, improving, likely inflammatory or infection-related. 7. Iron deficiency anemia. Iron supplementation has been added. Hemoglobin and hematocrit are pretty low. Vitals are stable. This could be dilutional. He is receiving normal saline at 100 an hour for his acute kidney injury. 8. Alcohol abuse history. 9. Arthritis with joint inflammation and significant pain. Continue current pain regimen. May consider either sending him home on pain medication or decreasing the type of pain medication prior to discharge, but he states since his medication was increased, his pain control has been great. 10. Disuse myopathy. Physical therapy. 11. Severe protein calorie malnutrition. The albumin level went from 1.9 to 2.1. He is receiving a total of 4 doses of albumin over 2 days. 12. Acute kidney injury. FeNa was less than 1%; it was 0.9%. Could be multifactorial. Vancomycin vs contrast induced. vancomycin was discontinued, will give a dose acetylcysteine and hydrate with D5W with Bicarb to see if we can improve on this.Urine output is adequate at this time. 13. Deep venous thrombosis prophylaxis on Lovenox. 14. Gastrointestinal prophylaxis on proton pump inhibitor. Dictated by SOPHIA Hicks for Igor Barrientos MD [facility]
[2016-05-26] MEDS: LOVENOX SUBQ SCH (19:57)
[2016-05-27] MEDS: NS 1,000 ML IV SCH (00:14)
[2016-05-27] MEDS: ZOSYN 3.375 GM/NS 50 ML IV SCH ×4 (02:51→20:23)
[2016-05-27] MEDS: PERCOCET-5 PO PRN ×5 (02:53→21:25)
[2016-05-27] MEDS: ALBUMIN 25% IV SCH ×2 (03:25→17:25)
[2016-05-27] MEDS: DUONEB (A & A) INH SCH ×4 (03:29→20:23)
[2016-05-27] MEDS: DILAUDID IV PRN ×6 (03:49→21:24)
[2016-05-27] MEDS: PRILOSEC PO SCH (06:00)
[2016-05-27 06:17] LABS: BASO% 1.1 % (0.0-0.8); EOS# 0.72 X1000 (0.0-0.7); EOS% 4.9 % (0.0-10.0); HEMATOCRIT 22.2 % (42.0-52.0); IMM GRAN# 0.06 X1000 (0.0-0.04); IMM GRAN% 0.4 % (0.0-0.5); LYMPH# 1.28 X1000 (1.2-3.4); LYMPH% 8.7 % (20.5-51.1); MANUAL DIFF NEEDED? YES; MCH 25.8 PG (27-31); MCHC 31.5 g/dL (33-37); MCV 81.9 FL (81-99); MONO% 6.1 % (1.7-9.3); NEUT% 78.8 % (42.2-75.2); PLT 702 X1000 (130-400); RBC 2.71 XMIL (4.7-6.1)
[2016-05-27 06:28] LABS: LYMPHS 4 % (21-51); MONO 6 % (1-9)
[2016-05-27 06:35] LABS: ALBUMIN 2.3 g/dL (3.5-5.0); CALCIUM 7.9 mg/dL (8.8-10.2); POTASSIUM 2.9 mmol/L (3.5-5.1); PREALBUMIN 7.3 mg/dL (20-40); TOTAL BILIRUBIN 0.13 mg/dL (0.20-1.00); TOTAL PROTEIN 5.4 g/dL (6.3-8.3)
[2016-05-27] MEDS ORDERED: KLOR-CON PO ONE (06:47)
[2016-05-27] MEDS: SODIUM BICARBONATE 8.4% 150 MEQ in D5W 1,000 ML IV SCH (07:36)
[2016-05-27] MEDS: PHENERGAN IV PRN (07:39)
[2016-05-27] MEDS: NICODERM PATCH TD SCH (08:30)
[2016-05-27] MEDS: VITAMIN B-1 PO SCH (08:30)
[2016-05-27] MEDS: ICAR-C PO SCH ×2 (08:30→20:23)
[2016-05-27] MEDS: ZYVOX PO SCH ×2 (08:30→20:24)
[2016-05-27] MEDS: CENTRUM TABLET PO SCH (08:30)
[2016-05-27] MEDS: MUCOMYST 20% PO SCH ×2 (08:30→20:20)
--- NOTE | 2016-05-27 10:19 | Diag Imaging Result Document ---
PROCEDURE NAME: CHEST-PORTABLE - 05/27/2016 SINGLE FRONTAL RADIOGRAPH OF THE CHEST: COMPARISON: 05/23/2016. FINDINGS: There is a known right lower lung zone mass that appears to be stable. There is adjacent infiltrate and/or atelectasis at the right lower lung zone that appears to be approximately stable. There is a stable small right effusion. No new consolidation is identified. Cardiac silhouette appears stable. IMPRESSION: Stable chest.
[2016-05-27] MEDS: MUCOMYST 20% INH SCH ×2 (10:54→20:23)
[2016-05-27] MEDS: PULMICORT INH SCH ×3 (10:55→20:20)
--- NOTE | 2016-05-27 16:37 | PROGRESS NOTE ---
DATE: 05/27/2016 SUBJECTIVE: Today Mr. Penaloza referred to be doing relatively fine. He continues to have some shortness of breath and cough. No fever. OBJECTIVE: Vital Signs: Stable. Blood pressure is 111/74, pulse is 86, respirations 22, temperature is 98.3 degrees. Patient is saturating 94% on 2 L of nasal cannula. General: Mr. Penaloza is a 51-year-old male. He was in bed. Not seemingly distress. HEENT: Mucosa is pink and moist. Anicteric. Acyanotic. He looks chronically sick. Chest: Air entry is bilaterally reduced. There are a few bibasilar crepitations, more so to the right lower lobe, right posterior lung field. Cardiovascular: Regular rate and rhythm. Abdomen: Soft, nontender. Extremities: There is 1+ pedal edema of both lower extremities. Distal pulses were present. [employer]ING [employer]: Patient is alert and oriented x4. There is no focal neurological deficit. LABORATORY DATA: WBC is 14.72, hemoglobin is 10.,0 platelet count of 702,000. Chemistry reviewed. Potassium is 2.9 and creatinine is 1.7, which is slightly improving. ASSESSMENT: Mr. Penaloza is a 51-year-old male with an extensive history of tobacco use and chronic obstructive pulmonary disease, presented on 05/14/2016 due to generalized weakness, some shortness of breath, and weight loss. During the workup patient was found to have a right lower lobe consolidation. A CT-guided biopsy which was done on 05/16/2016 is consistent with adenocarcinoma of the lungs. 1. Adenocarcinoma of the right lower lobe. 2. Postobstructive pneumonia. 3. Chronic obstructive pulmonary disease. 4. Tobacco abuse. 5. Anemia of chronic illness. Hemoglobin and hematocrit continue to drift down. Today it is 7. If it goes below 7 we will transfuse. 6. Thrombocytosis, likely reactive. 7. Protein calorie malnutrition. 8. Acute kidney injury. This looks like it is multifactorial. FENa was 0.9 but I think this is due to vancomycin as well as contrast induced nephropathy. Patient was given acetylcysteine yesterday and he is getting gentle hydration. We would follow up with his electrolytes for tomorrow morning. GENERAL PLAN: The patient seems to be stable. Continues to have remarkable shortness of breath. We are treating him for the postobstructive pneumonia. Dr. Mehta is on board. Patient was also diagnosed recently with adenocarcinoma of the right lower lobe. He is being followed by Dr. Ku. Hopefully once his respiratory status improves we will be able to discharge him to follow up with Dr. Ku for further medical care. We will keep a very close eye on his hemoglobin. If it draws below 7, we will transfuse him. Will continue with his gentle IV fluids. I will give him another dose of albumin and recheck on his electrolytes tomorrow morning.
[2016-05-27] MEDS: LOVENOX SUBQ SCH (20:23)
[2016-05-28] MEDS: ATIVAN IV PRN ×2 (00:49→22:11)
[2016-05-28] MEDS: DILAUDID IV PRN ×5 (02:27→20:25)
[2016-05-28] MEDS: ZOSYN 3.375 GM/NS 50 ML IV SCH ×4 (02:31→20:25)
[2016-05-28] MEDS: DUONEB (A & A) INH SCH ×5 (02:52→23:43)
[2016-05-28] MEDS: PERCOCET-5 PO PRN ×4 (04:40→22:11)
[2016-05-28] MEDS: PRILOSEC PO SCH (06:40)
[2016-05-28] MEDS: SODIUM BICARBONATE 8.4% 150 MEQ in D5W 1,000 ML IV SCH (06:40)
[2016-05-28 07:22] LABS: BASO% 1.1 % (0.0-0.8); EOS% 5.2 % (0.0-10.0); HEMATOCRIT 23.4 % (42.0-52.0); HEMOGLOBIN 7.5 g/dL (14.0-18.0); IMM GRAN% 0.6 % (0.0-0.5); LYMPH# 1.25 X1000 (1.2-3.4); LYMPH% 7.3 % (20.5-51.1); MANUAL DIFF NEEDED? YES; MCHC 32.1 g/dL (33-37); MONO# 1.19 X1000 (0.11-0.59); MONO% 6.9 % (1.7-9.3); MPV 9.3 FL (7.4-10.4); NEUT% 78.9 % (42.2-75.2); PLT 729 X1000 (130-400); RBC 2.89 XMIL (4.7-6.1)
[2016-05-28 07:37] LABS: CALCIUM 7.6 mg/dL (8.8-10.2); POTASSIUM 3.1 mmol/L (3.5-5.1); URIC ACID 3.1 mg/dL (3.4-7.0)
[2016-05-28 08:55] LABS: BANDS 2 % (0-1); EOS 5 % (1-10); LYMPHS 9 % (21-51); MONO 6 % (1-9)
[2016-05-28 08:57] LABS: HYPOCHROM 2+
[2016-05-28] MEDS: ZYVOX PO SCH ×2 (09:01→20:25)
[2016-05-28] MEDS: CENTRUM TABLET PO SCH (09:02)
[2016-05-28] MEDS: VITAMIN B-1 PO SCH (09:02)
[2016-05-28] MEDS: NICODERM PATCH TD SCH (09:03)
[2016-05-28] MEDS: ICAR-C PO SCH ×2 (09:03→20:25)
[2016-05-28] MEDS: PULMICORT INH SCH ×2 (09:23→23:44)
[2016-05-28] MEDS: MUCOMYST 20% INH SCH ×2 (09:23→23:43)
[2016-05-28] MEDS ORDERED: CALCIUM GLUCONATE 1 GM in NS 50 ML IV ONE (12:35)
[2016-05-28] MEDS ORDERED: KLOR-CON PO ONE (13:30)
--- NOTE | 2016-05-28 14:35 | Diag Imaging Result Document ---
PROCEDURE NAME: US RENAL 2 (RETROPER) COMPLETE - 05/28/2016 BILATERAL RENAL ULTRASOUND: FINDINGS: The right kidney measures 15.4 x 5.6 x 5.4 cm in size. The left kidney measures 15.6 x 6.1 x 6.2 cm in size. There is a 0.9 cm cyst at the lower right kidney. There is no solid renal mass or hydronephrosis identified. There is no perinephric fluid identified. There is no subcapsular or perinephric hematoma identified. Images of the urinary bladder demonstrate no lesion. IMPRESSION: Small right renal cyst. No other visible renal abnormality. No evidence of renal injury. Please note that subtle renal injuries may not be apparent by ultrasound.
[2016-05-28] MEDS: MUCOMYST 20% PO SCH (15:57)
[2016-05-28] MEDS: NS 1,000 ML IV SCH (16:03)
[2016-05-28] MEDS: ALBUMIN 25% IV SCH (16:03)
--- NOTE | 2016-05-28 16:46 | PROGRESS NOTE ---
DATE: 05/28/2016 SUBJECTIVE: The patient is resting comfortably in bed. He states that he still feels short of breath with minimal exertion. He does have a productive cough. OBJECTIVE: Vital Signs: Temperature 98.1 degrees, blood pressure 113/61, heart rate 103, respirations 22, O2 saturation is 95% on 2 L nasal cannula. General: This is an elderly male, sitting at the edge of the bed, in no acute distress. Head: Normocephalic, atraumatic. Heart: S1, S2 normal. Regular rate and rhythm. Lungs: Coarse breath sounds. No crackles. No rales. Abdomen: Positive bowel sounds. Soft, nontender, nondistended. Extremities: No edema. No cyanosis. No calf tenderness. Neurologic: The patient is alert and oriented x3. No focal neurologic deficits noted. LABS: White blood cell count 17, hemoglobin 7.5, hematocrit 23, platelets 729, 000. Sodium 138, potassium 3.1, chloride 102, CO2 23, BUN 10, creatinine 1.9, glucose 93, calcium 7.6, magnesium 1.8. ASSESSMENT AND PLAN: 1. Adenocarcinoma of the right lung status post CT-guided biopsy. Oncology is following for further treatment upon discharge. 2. Postobstructive pneumonia. The patient is currently on Zyvox and Zosyn as directed by Dr. Mehta. Continue with bronchodilator therapy and supplemental oxygen. The patient will most likely require home oxygen upon discharge. 3. Acute kidney injury. The patient's creatinine did increase slightly today despite being on IV fluids. We will check a renal ultrasound and consult nephrology for further recommendations. 4. Anemia of chronic disease. The patient's hemoglobin and hematocrit are low but stable. Will continue to monitor this closely and transfuse p.r.n. 5. Chronic obstructive pulmonary disease. Stable. Continue on bronchodilator therapy. 6. Leukocytosis. The patient's white count is elevated. However, the patient is afebrile. Continue with the current antibiotic regimen. 7. Severe protein calorie malnutrition. Continue with Ensure. The patient is also getting albumin infusions. 8. Deep vein thrombosis prophylaxis. Continue on Lovenox. 9. Continue with physical therapy. [facility]
[2016-05-28 18:46] LABS: URINE MICRO REVIEW NEEDED? NO; URINE SOURCE CLEAN CATCH
[2016-05-28 18:53] LABS: BILIRUBIN URINE NEGATIVE (NEGATIVE); BLOOD URINE NEGATIVE (NEGATIVE); COLOR YELLOW; GLUCOSE URINE NEGATIVE (NEGATIVE); LEUKOCYTES URINE NEGATIVE (NEGATIVE); NITRITE URINE NEGATIVE (NEGATIVE); PROTEIN URINE NEGATIVE (NEGATIVE); SP GRAVITY URINE 1.008; TURBIDITY URINE CLEAR (CLEAR); UROBILINOGEN URINE NORMAL (NORMAL)
[2016-05-28 18:54] LABS: UR EPITHELIAL CELLS <10 /HPF (<10); URINE BACTERIA NEGATIVE /HPF; URINE RBC <10 /HPF (<10); URINE WBC <10 /HPF (<10)
[2016-05-28 19:08] LABS: UR CREAT RANDOM 34.9 mg/dL (14-26); UR PROT RANDOM 10.7 mg/dL
[2016-05-28] MEDS: LOVENOX SUBQ SCH (20:25)
[2016-05-28] MEDS: DUONEB (A & A) INH PRN (20:50)
--- NOTE | 2016-05-28 21:06 | PROGRESS NOTE ---
DATE: 05/28/2016 PRESENT ILLNESS: The patient is being treated for pneumonia complicating a right lung adenocarcinoma. MEDICATIONS: The patient has been receiving Zyvox and Zosyn for a period of 4 days. The patient's white count still is increasing. PHYSICAL EXAMINATION: Vital signs: The patient's temperature is 98.1 degrees, pulse 74, respirations 18, blood pressure 113/61. General: This is a chronically ill-appearing, middle- aged male who is in no acute distress. Lungs: Clear to auscultation. Cardiovascular: Regular heart rate. Abdomen: Soft and nontender. LABORATORY AND X-RAY: Chest x-ray shows stable right lung infiltrates and mass with effusion. Renal ultrasound shows a small right renal cyst. Creatinine is 1.9, the GFR is 37. CBC shows a white count of 17,240, hemoglobin 7.5 and platelet count 729,000. ASSESSMENT AND PLAN: Patient has pneumonia complicated and lung cancer. For now I am going to continue his current antibiotics. COMORBIDITIES: Cigarette smoking, alcohol consumption, and lung cancer.
[2016-05-29] MEDS: ZOSYN 3.375 GM/NS 50 ML IV SCH ×4 (02:00→19:38)
[2016-05-29] MEDS: NS 1,000 ML IV SCH (03:33)
[2016-05-29] MEDS: DILAUDID IV PRN ×5 (03:35→21:41)
[2016-05-29] MEDS: DUONEB (A & A) INH SCH ×4 (03:45→21:20)
[2016-05-29] MEDS: PERCOCET-5 PO PRN ×5 (06:17→23:52)
[2016-05-29] MEDS: PRILOSEC PO SCH (06:17)
[2016-05-29 06:30] LABS: ALBUMIN 2.6 g/dL (3.5-5.0); CALCIUM 8.1 mg/dL (8.8-10.2); POTASSIUM 3.2 mmol/L (3.5-5.1)
[2016-05-29 06:34] LABS: BASO% 1.4 % (0.0-0.8); EOS# 0.74 X1000 (0.0-0.7); HEMATOCRIT 25.3 % (42.0-52.0); HEMOGLOBIN 8.2 g/dL (14.0-18.0); IMM GRAN# 0.07 X1000 (0.0-0.04); IMM GRAN% 0.4 % (0.0-0.5); LYMPH# 1.64 X1000 (1.2-3.4); LYMPH% 8.9 % (20.5-51.1); MANUAL DIFF NEEDED? YES; MCH 26.2 PG (27-31); MCHC 32.4 g/dL (33-37); MCV 80.8 FL (81-99); MONO# 1.24 X1000 (0.11-0.59); MONO% 6.7 % (1.7-9.3); MPV 8.7 FL (7.4-10.4); NEUT% 78.6 % (42.2-75.2); PLT 785 X1000 (130-400); RBC 3.13 XMIL (4.7-6.1)
[2016-05-29 06:56] LABS: EOS 3 % (1-10); LYMPHS 16 % (21-51); MONO 6 % (1-9)
[2016-05-29] MEDS: ZYVOX PO SCH ×3 (08:00→20:37)
[2016-05-29] MEDS: ICAR-C PO SCH ×3 (08:00→20:39)
[2016-05-29] MEDS: CENTRUM TABLET PO SCH (08:00)
[2016-05-29] MEDS: NICODERM PATCH TD SCH (08:00)
[2016-05-29] MEDS: VITAMIN B-1 PO SCH (08:00)
[2016-05-29] MEDS: ALBUMIN 25% IV SCH (10:39)
[2016-05-29] MEDS: MUCOMYST 20% INH SCH ×2 (10:53→21:20)
[2016-05-29] MEDS: PULMICORT INH SCH ×2 (10:56→21:20)
[2016-05-29] MEDS ORDERED: KLOR-CON PO ONE (11:55)
[2016-05-29] MEDS ORDERED: LASIX IV ONE (12:08)
--- NOTE | 2016-05-29 19:25 | CONSULTATION ---
DATE OF CONSULTATION: 05/29/2016 REASON FOR ADMISSION: Swelling to both legs for 2 months with both knees hurting. HISTORY OF PRESENT ILLNESS: Patient is stated to have presented to an outpatient clinic for increased lower extremity swelling and weakness. He stated that he was told to get some x-rays of his lower extremities and chest x-ray. Subsequently because he felt bad he was told to go back to the emergency room. He was diaphoretic. He was alert and oriented. The patient states that he has lost weight of approximately 15-20 pounds in the last month to 2 months. He stated that after he had gone to the walk-in clinic he was told to present to the emergency room. Upon chest x-ray it was found that he had an opacity of the medial right lung base with a known right lower base mass adjacent to the para lesion infiltrate. This was reported as stable. Subsequently patient had a lung biopsy CT on 05/16 which was found to have no immediate procedural complications. He then on the had another abdominal CT with and without contrast indicating known mass to the right lower lung lobe with extensive atelectasis, bibasilar small pleural effusions with tiny bone hypodensity and left hepatic lobe small cyst. Patient then had a repeat chest CT on 05/24 with IV contrast, found to have consolidation of the right lower lobe with segmental bronchi, new small bilateral pleural effusions were noted at that time. The patient's baseline creatinine upon his initial admission was 0.6. During his hospitalization his creatinine has risen to 1.7-1.9 and has remained at this level without any improvement. Patient is noted to have cancer of the lungs. He has not received any further treatment at this time. During this hospitalization for his cancer his BUN has remained stable with a creatinine of 1.8. He denies any chest pain. No increased work of breathing though he appears to be using some accessory muscles as we are speaking. He denies any nausea, vomiting, no diarrhea, poor appetite. No hematuria, no hematochezia. No fever or chills. PAST MEDICAL HISTORY: States that he has not had any problems in the past. FAMILY HISTORY: No significant family history for any heart or kidney disease. No cancers. SOCIAL HISTORY: States he lives alone. He smokes a couple packs a day of cigarettes. He drinks 5-6 beers every day though he stated he has tried to cut back. No illicit drug use. CURRENT ALLERGIES: No known drug allergies. HOME MEDICATIONS: He denies any home medications except an occasional over-the -counter medication. 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 REVIEW OF SYSTEMS: Times 10 with pertinent positives listed above in the HPI. VITAL SIGNS: Most recent. Temperature 98.6 degrees, blood pressure 137/80, heart rate 97, respirations 22. He is on 2 L nasal cannula at this time. Last recorded saturation of 96%. He has had 1100 in. He has had 2075 out per void. LABS: This a.m., sodium 136, potassium 3.2, chloride 101, CO2 22, BUN 9, creatinine 1.8, glucose 100, anion gap of 13, calcium 8.1, phosphorus 3.4, albumin 2.6. He has a white count of 18.48, hemoglobin 8.2, hematocrit 25.3, with a platelet count of 785,000. Urinalysis is negative for proteinuria, hematuria or leukocytes. Chest x-ray and CT scans as mentioned. Patient had a renal ultrasound indicating the right kidney measuring 15.4, left kidney measuring 15.6 with a small a right renal cyst uncomplicated as noted. PHYSICAL EXAMINATION: General: This is a 51-year-old white male. He is currently resting in bed. He denies any acute distress though he appears to be hypercapnic. His skin is warm and dry. HEENT: Normocephalic, atraumatic. Conjunctiva is pale. He has LADONNA. Mucous membranes moist. Neck: Supple. Trachea midline. He has no JVD. Cardiovascular: Regular rate and rhythm. There is no murmur or gallop appreciated. Lungs: Basically clear to auscultation. Equal excursion. He is on O2. Abdomen: Round, soft, nontender. Positive bowel sounds. Genitourinary: Not inspected. Patient has adequate void. Extremities: Have 2 to 3+ lower extremity edema. Integumentary: No rashes or lesions noted. Neurological: Alert and oriented x3. ASSESSMENT AND PLAN: 1. Acute kidney injury. This may be multifactorial but likely it is acute tubular necrosis secondary to contrast nephropathy with 3 CTs performed in the last month with contrast. His creatinine has stabilized. He has no obstruction. Urine electrolytes are currently pending. We will continue to monitor. We will stop his IV fluids at this time secondary to edema to the lower extremities. 2. Electrolytes. These remain stable. 3. Acid-base balance. This remains stable. 4. Anemia. This remains stable. 5. Lung cancer. This is currently being followed by the primary care team and Dr. Ku. 6. Pneumonia. This is currently being followed by Dr. Konrad Mehta. 7. Fluid volume overload with increased lower extremity swelling. Patient has adequate urine output. We will stop his IV fluids at this time and monitor his labs in the a.m. I would like to thank you for allowing us to follow with this patient. Seen, data reviewed, discussed with Isabel Rivas on 05/29/16. I agree with the above assessment and plan of care. rg Dictated by SOPHIA Holm for Abdiaziz Matthews MD [facility]
[2016-05-29] MEDS: LOVENOX SUBQ SCH (19:39)
[2016-05-29] MEDS: ATIVAN IV PRN ×2 (19:47→23:54)
[2016-05-30] MEDS: DUONEB (A & A) INH SCH ×3 (02:50→21:25)
[2016-05-30] MEDS: DILAUDID IV PRN ×6 (02:59→22:25)
[2016-05-30] MEDS: ZOSYN 3.375 GM/NS 50 ML IV SCH ×4 (02:59→23:43)
[2016-05-30] MEDS: ATIVAN IV PRN ×3 (03:05→22:25)
--- NOTE | 2016-05-30 03:46 | Extremity Venous Study ---
PROCEDURE NAME: Venous U/S Bilateral Legs - 05/29/2016 REFERRING PHYSICIAN: Dr. Chavez. READING PHYSICIAN: Edu Aguero MD. SWAGE TENDER: Yovani. INDICATION: Bilateral leg swelling, shortness of breath, lung cancer. FINDINGS: The deep and superficial veins of both lower extremities were imaged throughout their course. All are compressible with forward flow. No thrombosis appreciated. Bilateral inguinal lymphadenopathy is noted. Hypoechoic fluid collections are noted in the popliteal fossas bilaterally. INTERPRETATION: No evidence of deep or superficial venous thrombosis in either lower extremity. Inguinal lymphadenopathy bilaterally is noted and further characterization with ultrasound should be handled clinically. There are fluid collections in the popliteal fossae which should be handled clinically.
[2016-05-30] MEDS: PERCOCET-5 PO PRN ×3 (03:57→16:12)
[2016-05-30 07:02] LABS: BASO% 1.4 % (0.0-0.8); HEMATOCRIT 24.1 % (42.0-52.0); HEMOGLOBIN 7.8 g/dL (14.0-18.0); IMM GRAN# 0.07 X1000 (0.0-0.04); IMM GRAN% 0.4 % (0.0-0.5); LYMPH# 1.62 X1000 (1.2-3.4); MANUAL DIFF NEEDED? YES; MCH 26.1 PG (27-31); MCHC 32.4 g/dL (33-37); MCV 80.6 FL (81-99); MONO# 1.12 X1000 (0.11-0.59); MONO% 6.9 % (1.7-9.3); MPV 9.1 FL (7.4-10.4); NEUT% 76.3 % (42.2-75.2); PLT 763 X1000 (130-400); RBC 2.99 XMIL (4.7-6.1)
[2016-05-30] MEDS: PRILOSEC PO SCH (07:10)
[2016-05-30 07:23] LABS: ALBUMIN 2.5 g/dL (3.5-5.0); CALCIUM 8.1 mg/dL (8.8-10.2); MAGNESIUM 1.6 mg/dL (1.5-2.7); POTASSIUM 3.1 mmol/L (3.5-5.1)
--- NOTE | 2016-05-30 07:59 | PROGRESS NOTE ---
DATE: 05/29/2016 SUBJECTIVE: The patient complains of generalized pain. States that he is still very short of breath. OBJECTIVE: Vital signs: T: 98.5 BP:120/80 HR: 88, O2 sat:92% 3 liters. General : This is a elderly male lying in bed in no acute distress. HEENT: Head normocephalic, atraumatic. Heart: S1, S2. Regular rate. Lungs: Clear to auscultation bilaterally. No wheezes , no rales, no rhonchi. Abdomen: Positive bowel sounds. Soft, nontender, nondistended. Extremities: 3+ edema to lower extremities. Neuro: The patient is alert oriented x3. No focal neurologic deficits noted. LAB: White blood cell count 18, hemoglobin 8.2, hematocrit 25, platelets 785, 000. Sodium 136, potassium 3.2, chloride 101, CO2 22, BUN 9, creatinine 1.8, glucose 100, calcium 8.1, phosphorus 3.4, albumin 2.6. ASSESSMENT AND PLAN: 1. Adenocarcinoma of the right lung . Further management as per the oncologist. 2. Postobstructive pneumonia. Continue on Zosyn and Zyvox. Infectious disease is following. 3. Acute kidney injury. Unchanged. Nephrology is following. 4. Anemia chronic disease. Hemoglobin and hematocrit are stable. 5. Chronic obstructive pulmonary disease. Stable. 6. Leukocytosis. Continue IV antibiotic therapy. Monitor for improvement. 7. Severe protein calorie malnutrition. Continue on Ensure. 8. Bilateral lower extremity edema. The patient is on lasix. BLE venous doppler is negative for DVT. [facility]
[2016-05-30 08:22] LABS: BANDS 5 % (0-1); EOS 2 % (1-10); LYMPHS 9 % (21-51); MONO 5 % (1-9)
[2016-05-30] MEDS: VITAMIN B-1 PO SCH (09:05)
[2016-05-30] MEDS: ICAR-C PO SCH ×2 (09:05→23:43)
[2016-05-30] MEDS: NICODERM PATCH TD SCH (09:06)
[2016-05-30] MEDS: CENTRUM TABLET PO SCH (09:06)
[2016-05-30] MEDS: MUCOMYST 20% INH SCH ×2 (09:39→21:25)
[2016-05-30] MEDS: PULMICORT INH SCH ×2 (09:40→21:25)
[2016-05-30] MEDS: ZYVOX PO SCH ×2 (10:48→23:43)
[2016-05-30] MEDS: LASIX IV SCH (11:45)
[2016-05-30] MEDS ORDERED: KLOR-CON PO ONE (12:47)
[2016-05-30] MEDS ORDERED: MAGNESIUM SULFATE 2 GM/S.W.I. 50 ML IV ONE (13:08)
--- NOTE | 2016-05-30 13:59 | PROGRESS NOTE ---
DATE: 05/30/2016 SUBJECTIVE: Mr. Penaloza states that he is feeling a little bit better today. States that he has no increased work of breathing or chest pain. OBJECTIVE: His most recent vital signs, temperature 99.4 degrees, blood pressure 138/80, heart rate is 105, respirations 23. He is on 3 L nasal cannula. Last recorded saturation 93%. He has had 200 in. He has had 2950 out per void. LABORATORY DATA: This a.m., sodium 136, potassium 3.1, chloride 100, CO2 23, BUN 11, creatinine 1.7, glucose of 90. Patient's anion gap is 13, calcium 8.1, phosphorus 3.3, magnesium 1.6, albumin 2.5. White count 16.15, hemoglobin 7.8, hematocrit 24.1, with a platelet count of 763,000. PHYSICAL EXAMINATION: General: This is a 51-year-old male. He is currently resting quietly in bed. He is in no acute distress. Skin: Warm and dry. HEENT: Normocephalic, atraumatic. Conjunctivae pale. He has LADONNA. Mucous membranes moist. Neck: Supple. Trachea midline. No JVD. Cardiovascular: Regular rate and rhythm. He is without murmur or gallop. Lungs: Clear to auscultation bilaterally. Equal excursion. He is on O2. Abdomen: Round, soft, nontender. Positive bowel sounds. Genitourinary: Not inspected. Adequate void. Integumentary: No rashes or lesions evident. Extremities: Has 2 to 3+ lower extremity edema up into the thigh range. Neurological: Alert and oriented x3. ASSESSMENT AND PLAN: 1. Acute kidney injury. Acute tubular necrosis. Patient's creatinine has remained stable over the last 5 days in the hospital. We will continue to be available and monitor. 2. Electrolytes. Patient has mild hypokalemia. He has already had a potassium supplement ordered. If not, we will order a small replacement orally. 3. Acid-base balance. This is stable. 4. Anemia. This remains low but stable. 5. Increased edema. Patient continues on Lasix as indicated. Improving. We will decide in the morning if he needs to take furosemide after discharge. rg I would like to thank you for allowing us to follow with this patient. Seen, data reviewed, discussed with Isabel Rivas on 05/30/16. I agree with the above assessment and plan of care. rg Dictated by SOPHIA Holm for Abdiaziz Matthews MD [facility]
--- NOTE | 2016-05-30 15:11 | PROGRESS NOTE ---
DATE: 05/30/2016 PRESENT ILLNESS: I am treating the patient for pneumonia, which unfortunately is complicating lung cancer. MEDICATIONS: The patient in the hospital is receiving p.o. Zyvox and IV Zosyn. This will be the 5th day of treatment with both of those agents. PHYSICAL EXAMINATION: Vital Signs: Temperature is 98, pulse 102, respirations 22, blood pressure 136/76. General: This is a chronically ill-appearing, middle-aged male. He is in no acute distress. Lungs: There were scattered rhonchi bilaterally. Some diminished breath sounds were heard on the right side also. Cardiovascular: Heart rate is regular. Abdomen : Soft and nontender. LAB AND X-RAY: The patient had a Doppler study of his legs it did not show no deep venous thrombosis. Patient's CBC shows a white count of 16,150, hemoglobin 7.8, and platelet count is 763,000. Creatinine is 1.7. GFR is 43. ASSESSMENT AND PLAN: Patient has pneumonia and lung cancer. I discussed the patient with Dr. Jesusita Chavez and Dr. Sidney Ku. Our plan now is to send the patient home on oxygen and oral antibiotics. Dr. Sidney Ku will arrange for PET scan to be done, and based on those results he will initiate chemotherapy for the patient's lung cancer. I am requesting that the patient see me back in the office in 2 weeks after discharge. COMORBIDITY: Lung cancer, COPD, cigarette smoking, alcohol intake. MTDD
--- NOTE | 2016-05-30 15:24 | PROGRESS NOTE ---
DATE: 05/30/2016 SUBJECTIVE: The patient is sitting at the edge of the bed. He states that he has been coughing up some brownish colored sputum but otherwise has no other complaints. OBJECTIVE: Vital Signs: Temperature 98 degrees, blood pressure 136/76, heart rate 102, respirations 17, O2 saturations 93% on 3 L nasal cannula. General: This is a chronically ill- appearing, elderly male, sitting at the edge of the bed, in no acute distress. Heart: S1, S2. Normal. Tachycardic. Lungs: Clear to auscultation. No wheezing. No rales. Abdomen: Positive bowel sounds. Soft, nontender, nondistended. Extremities: There is 2+ edema. No cyanosis. No calf tenderness. Neurologic: The patient is alert and oriented x3. No focal neurologic deficits noted. LABS: White blood cell count 16, hemoglobin 7.8, hematocrit 24, platelets 763,000. Sodium 136, potassium 3.1, chloride 100, CO2 23, BUN 11, creatinine 1.7. Glucose 90. ASSESSMENT AND PLAN: 1. Adenocarcinoma of the right lung. The patient will follow up with Dr. Ku upon discharge for further treatment. 2. Postobstructive pneumonia. Will continue on the current antibiotic regimen. The patient will be transitioned to p.o. antibiotics today for possible discharge tomorrow. 3. Acute kidney injury. Unchanged. We will continue to monitor for improvement. 4. Chronic obstructive pulmonary disease. Stable. 5. Leukocytosis. Slowly improving. 6. Severe protein calorie malnutrition. Continue with Ensure. 7. Bilateral lower extremity edema. The patient is currently on Lasix. The patient has been advised to keep his legs elevated. 8. Disposition. The patient will most likely be discharged home tomorrow. We will arrange for home oxygen.
[2016-05-30] MEDS: LOVENOX SUBQ SCH (23:59)
[2016-05-31] MEDS: DILAUDID IV PRN ×4 (01:14→13:14)
[2016-05-31] MEDS: ATIVAN IV PRN (01:14)
[2016-05-31] MEDS: DUONEB (A & A) INH SCH (03:46)
[2016-05-31] MEDS: ZOSYN 3.375 GM/NS 50 ML IV SCH ×2 (05:07→13:18)
[2016-05-31 05:30] VITALS: BP 126/61
[2016-05-31] MEDS ORDERED: TYLENOL PO PRN (05:40)
[2016-05-31] MEDS: PRILOSEC PO SCH (07:02)
[2016-05-31 07:46] LABS: ALBUMIN 2.6 g/dL (3.5-5.0); CALCIUM 7.8 mg/dL (8.8-10.2); MAGNESIUM 1.7 mg/dL (1.5-2.7); POTASSIUM 3.5 mmol/L (3.5-5.1)
[2016-05-31] MEDS: MUCOMYST 20% INH SCH (08:24)
[2016-05-31] MEDS: PULMICORT INH SCH (08:25)
[2016-05-31] MEDS: DUONEB (A & A) INH PRN (08:25)
[2016-05-31] MEDS: CENTRUM TABLET PO SCH (08:54)
[2016-05-31] MEDS: VITAMIN B-1 PO SCH (08:54)
[2016-05-31] MEDS: ZYVOX PO SCH (08:54)
[2016-05-31] MEDS: LASIX IV SCH (08:54)
[2016-05-31] MEDS: ICAR-C PO SCH (08:54)
[2016-05-31] MEDS: NICODERM PATCH TD SCH (08:54)
--- NOTE | 2016-05-31 10:33 | PROGRESS NOTE ---
DATE: 05/31/2016 SUBJECTIVE: He states his swelling and shortness of breath are better today. He anticipates discharge. OBJECTIVE: Vital Signs: Blood pressure 126/61, heart rate 94, respirations 21, temperature 101.9 degrees. This is his 1st temperature in several days. Intake 400 mL. Output 2 L. Physical Examination: General: No acute distress. Skin: Warm and dry. HEENT: Conjunctivae are pink. Neck: Neck veins are not distended. Heart: Regular without gallops or murmurs. Lungs: Have equal breath sounds. Few wheezes. No crackles. Abdomen: Soft, nontender. Bowel sounds are present. Extremities: Have 1+ edema. No clubbing or cyanosis. Laboratory Data: Sodium 136, potassium 3.5, chloride 100, bicarbonate 23, BUN 11, creatinine 1.7. IMPRESSION: 1. Acute kidney injury, likely acute tubular necrosis. His labs have been stable for several days. I would expect him to slowly improve. 2. Volume status, progressively improving. He has been receiving furosemide at only 20 mg daily. I think he can just discontinue diuretic use when he goes home. 3. Electrolytes are in target. 4. Acid-base in target. 5. Fever. We will defer this to the primary team.
[2016-05-31] MEDS: PERCOCET-5 PO PRN ×2 (10:36→15:31)
--- NOTE | 2016-05-31 19:38 | DISCHARGE SUMMARY ---
ADMISSION DATE: 05/14/2016 DISCHARGE DATE: 05/31/2016 CONSULTATIONS: 1. Konrad Mehta M.D. 2. Sidney Ku M.D. 3. Abdiaziz Matthews M.D. PERTINENT PROCEDURES: 1. Pulmonary arteriogram showed right lower lobe mass with probable bronchial stenosis and right hilar adenopathy, severe COPD. 2. CT-guided lung biopsy performed on 05/16/2016. 3. Lumbar spine x-ray showed degenerative disc disease. 4. Abdomen and pelvis CT showed partially imaged mass in the right lower lung lobe with extensive atelectasis surrounding the mass that is worse than in previous study. 5. Bibasilar small pleural effusions. Tiny hypodensity seen in the left hepatic lobe medially that probably represents a small cyst. No definite metastatic diseases. 6. Follow-up chest CT showed significant progression and consolidation in right lower lobe. Subsegmental bronchi are severely compressed. New small bilateral pleural effusions. 7. Renal ultrasound showed small right renal cyst. No other visible renal abnormality. 8. Bilateral lower venous Dopplers showed no evidence of deep or superficial venous thrombosis in either lower extremity. Inguinal lymphadenopathy bilaterally noted. DISCHARGE DIAGNOSES: 1. Acute kidney injury secondary to acute tubular necrosis, stable for several days, slowly improved. 2. Adenocarcinoma of the right lung. Patient followed by Dr. Ku and will follow up with him after discharge. He will need an outpatient PET scan. 3. Postobstructive pneumonia followed by Dr. Mehta. Patient will go home on p.o. antibiotics. 4. Chronic obstructive pulmonary disease stable. 5. Leukocytosis slowly improving. 6. Severe protein calorie malnutrition. Continue with Ensure. 7. Bilateral lower extremity edema. Patient had currently been on IV Lasix per Dr. Matthews. He will not need any diuretics at discharge. HOSPITAL COURSE: Briefly, Mr. Penaloza is a 51-year-old male who does not have any past medical history. He reported that for 2 months both feet have been hurting as well as his knees. 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 His joints have hurt him over the past couple of months. He also stated that he had a cough and has felt bad over the last 2 months for which he came to the emergency room. Upon examination he looked diaphoretic. He states that he has lost weight. He was not eating very well. On 05/04/2016 patient did have a chest x-ray that showed COPD changes with a dense focal infiltrate in the medial right lower lung zone likely representing pneumonia. A follow-up chest x-ray was recommended including the possibility of underlying mass. The repeat x-ray today looked about the same. The radiologist, Dr. Hawthorne, was concerned about the mass in the right lung. He did undergo a pulmonary arteriogram that did show a right lower lobe mass with probable bronchostenosis and right hilar adenopathy, severe COPD. Patient did undergo a CT-guided lung biopsy. The pathology on that did show adenocarcinoma moderately differentiated with focal neuroendocrine differentiation. There was no metastatic disease noted in the lumbar spine or abdominopelvic CT. Dr. Sidney Ku was consulted. The patient was initially started on IV antibiotics as well as bronchodilators and IV fluids. The patient also has a history of alcohol as well as tobacco dependence. He was placed on a banana bag, Ativan ordered p.r.n. as well as nicotine patches and was monitored for any alcohol withdrawal. The patient was still having significant shortness of breath. A repeated CT scan showed significant progression and consolidation in the right lower lobe. Dr. Konrad Mehta was consulted for assistance with antibiotic management. He agreed to treat the patient with Zosyn. He did stop the Levaquin and vancomycin, and added p.o. Zyvox. The patient continued to have swelling in bilateral lower extremities. He did have Doppler studies that ruled out a DVT. He was also having an acute kidney injury. Renal ultrasound did not show anything medically wrong. Dr. Matthews was consulted for his edema. He was started on IV Lasix. Dr. Matthews did feel this was an acute kidney injury multifactorial but likely acute tubular necrosis secondary to contrast neuropathy with 3 CTs performed in the last month with contrast. There was no obstruction. The patient's creatinine did stabilize with some improvement slowly. Patient clinically was not as short of breath. He did still complain of a productive cough that he described as brownish-colored sputum. Patient was set to be discharged this a.m., however, around 5:30 this morning he spiked a temperature of 101.9 degrees. After speaking with Dr. Barrientos and Dr. Mehta, and the patient's temperature coming back down to 98.4, they felt that he was appropriate for discharge today. He can follow up with Dr. Ku as outpatient and to have a PET scan on June 05. He will see Dr. Ku on June 06. He will also follow up with Dr. Sharma in 2 weeks as well as Dr. Konrad Mehta in 2 weeks. Patient is being discharged home with home O2. VITAL SIGNS AT TIME OF DISCHARGE: Temperature is 98.4 degrees, heart rate 94, respirations 21, blood pressure 126/61, O2 is 92% on 3 L. DISCHARGE DIET: Healthy heart with Ensure 3 times a day. DISCHARGE MEDICATIONS: 1. Albuterol 3 mL inhaler q.4 hours p.r.n. 2. Oxycodone 10/325, 1 each p.o. q.4 hours p.r.n. pain. 3. Augmentin 875/125, 1 each p.o. q.12 hours. 4. Centrum Silver 1 each p.o. daily. 5. Cipro 500 mg p.o. q.12 hours. 6. Icar-C 1 each p.o. b.i.d. 7. Nicotine patch 21 mg daily. 8. Prilosec 40 mg p.o. daily. 9. Pulmicort 0.5 mg inhaled RT b.i.d. 10. Thiamine 100 mg p.o. daily. FOLLOWUP: 1. Patient is being discharged home with home O2. 2. He will follow up with Dr. Sidney Ku, have a PET scan. 3. Follow up with Dr. Sharma as well as Dr. Konrad Mehta in 2 weeks. 4. He is to finish his full course of p.o. antibiotics as well as abstaining from alcohol as well as tobacco use. 5. The patient can return to the ED for any worsening of symptoms. DISCHARGE TIME: Greater than 30 minutes. Dictated by SOPHIA Marhsall for Jesusita Chavez MD
== END 2016-05-31 15:52 | disposition home or self-care (01) | DRG 843 ==
LOC: ED 15:19 → 3N 18:56
PROVIDERS: ATTEND Internal Medicine
PROC: 0BBF3ZX Excision of Right Lower Lung Lobe, Percutaneous Approach, Diagnostic (ICD-10-PCS; principal; 2016-05-16)
DX: C7A.8 Other malignant neuroendocrine tumors (principal); J18.9 Pneumonia, unspecified organism; N17.0 Acute kidney failure with tubular necrosis; E43 Unspecified severe protein-calorie malnutrition; J44.0 Chronic obstructive pulmonary disease with (acute) lower respiratory infection; D50.9 Iron deficiency anemia, unspecified; F10.20 Alcohol dependence, uncomplicated; J44.1 Chronic obstructive pulmonary disease with (acute) exacerbation; Z68.1 Body mass index [BMI] 19.9 or less, adult; D47.3 Essential (hemorrhagic) thrombocythemia; E87.70 Fluid overload, unspecified; G72.9 Myopathy, unspecified; E87.6 Hypokalemia; N14.1 Nephropathy induced by other drugs, medicaments and biological substances; D63.8 Anemia in other chronic diseases classified elsewhere; M17.0 Bilateral primary osteoarthritis of knee; M19.072 Primary osteoarthritis, left ankle and foot; M19.071 Primary osteoarthritis, right ankle and foot; F17.210 Nicotine dependence, cigarettes, uncomplicated; Z80.9 Family history of malignant neoplasm, unspecified; Z83.3 Family history of diabetes mellitus; Z82.49 Family history of ischemic heart disease and other diseases of the circulatory system; T50.8X5A Adverse effect of diagnostic agents, initial encounter; T36.8X5A Adverse effect of other systemic antibiotics, initial encounter
CPT/HCPCS: 32405; 71010; 71020; 71260; 71275; 72100; 74178; 76770; 77012; 80048; 80053; 80069; 80202; 81001; 82378; 82550; 82570; 82607; 82728; 82746; 83036; 83540; 83550; 83615; 83735; 83880; 83935; 84100; 84134; 84156; 84300; 84439; 84443; 84484; 84540; 84550; 85025; 85027; 85379; 85610; 85730; 87040; 87205; 88305; 93005; 93970; 94640; 94760; 94761; 94799; 96365; 96375; G0480; J0610; J0696; J1170; J1650; J1940; J2060; J2270; J2543; J2550; J3370; J3411; J3475; J7030; J7040; J7050; J7070; Q9967; 80324; 80345; 80346; 80349; 80353; 80358; 80361; 80365; 83992; 97116-GP; 97530-GP; P9047

== ENCOUNTER 2016-06-19 08:53 | Day surgery (SDC) ==
[2016-06-18 19:35] LABS: BASO% 0.3 % (0.0-0.8); EOS# 0.27 X1000 (0.0-0.7); EOS% 1.4 % (0.0-10.0); HEMATOCRIT 22.6 % (42.0-52.0); HEMOGLOBIN 7.3 g/dL (14.0-18.0); IMM GRAN# 0.12 X1000 (0.0-0.04); IMM GRAN% 0.6 % (0.0-0.5); LYMPH# 2.33 X1000 (1.2-3.4); LYMPH% 12.2 % (20.5-51.1); MANUAL DIFF NEEDED? YES; MCH 25.3 PG (27-31); MCHC 32.3 g/dL (33-37); MCV 78.5 FL (81-99); MONO# 1.37 X1000 (0.11-0.59); MONO% 7.2 % (1.7-9.3); MPV 8.6 FL (7.4-10.4); NEUT% 78.3 % (42.2-75.2); PLT 858 X1000 (130-400); RBC 2.88 XMIL (4.7-6.1)
[2016-06-18 20:08] LABS: BASO 1 % (0-1); LYMPHS 16 % (21-51); MONO 7 % (1-9)
[2016-06-18 20:09] LABS: HYPOCHROM 1+
[2016-06-19] MEDS ORDERED: TYLENOL ONE (09:19)
[2016-06-19] MEDS ORDERED: BENADRYL ONE (09:19)
[2016-06-19] MEDS ORDERED: NS 250 ML ONE (09:20)
[2016-06-19 13:37] VITALS: BP 103/63
== END 2016-06-19 13:35 | disposition home or self-care (01) ==
LOC: INF 08:53
PROVIDERS: ATTEND Internal Medicine
DX: C34.31 Malignant neoplasm of lower lobe, right bronchus or lung (principal); C77.1 Secondary and unspecified malignant neoplasm of intrathoracic lymph nodes; D63.0 Anemia in neoplastic disease; D50.9 Iron deficiency anemia, unspecified; Z79.51 Long term (current) use of inhaled steroids; Z79.899 Other long term (current) drug therapy; F17.210 Nicotine dependence, cigarettes, uncomplicated
CPT/HCPCS: 36415; 36430; 85025; 86850; 86900; 86901; 86920; J7050; P9016

== ENCOUNTER 2016-10-15 05:04 | Inpatient (IN) ==
--- NOTE | 2016-10-15 05:16 | PROVIDER DOCUMENTATION ---
HPI-Respiratory General - General Chief Complaint: Shortness of Breath Stated Complaint: sob Time Seen by Provider: 10/15/16 05:08 Allergies/Adverse Reactions: Patient Allergies Allergy/AdvReac Type Severity Reaction Status Date / Time No Known Allergies Allergy Verified 10/15/16 05:13 Home Medications: Home Medication List Medication Instructions Recorded Confirmed Last Taken Type Oxycodone/APAP 10 mg/325 mg 1 each PO Q4H PRN PRN #30 tablet 05/31/16 10/15/16 10/09/16 20:00 Rx [Percocet-10] 1 Fentanyl 25 Microgm/Hr Patch 25 mcg TOP Q3DAYS 07/11/16 10/15/16 10/09/16 20:00 History [Duragesic 25 Microgm/Hr Patch] 25 Dronabinol 5 mg PO BID 10/08/16 10/15/16 10/09/16 19:00 History 5 - History of Present Illness-Resp Quality of Pain: reports: sharp Severity in ED: reports: moderate Onset/Duration: reports: 3 days ago Timing: reports: still present Context: reports: other (CHEMO SATURDAY FOR LUNG CA) Cough Quality/Degree: reports: moderate Episode Frequency: frequent episodes Current Respiratory Medication Therapy: Initiated see nurses note, Initiated A/ A nebulizer, Initiated albuterol Modifying Factors: improves with: exertion, deep breath, lying down Associated Symptoms: reports: chest pain/soreness, cough, hurts to breathe Similar Symptoms Previously?: Yes Recently seen or treated by another doctor?: Yes (DR. VÁZQUEZ) Review of Systems - Adult - REVIEW OF SYSTEMS - ADULT ROS:: limited per condition Constitutional: reports: weight loss Eyes: reports: no symptoms reported Ears, Nose, Mouth & Throat: reports: no symptoms reported Cardiovascular: reports: no symptoms reported Respiratory: reports: cough, dyspnea on exertion, pleurisy, shortness of breath , other (CANCER) Gastrointestinal: reports: no symptoms reported Genitourinary: reports: no symptoms reported Musculoskeletal: reports: no symptoms reported Integumentary: reports: no symptoms reported Neurological: reports: no symptoms reported Psychiatric: reports: no symptoms reported Endocrine: reports: no symptoms reported Hematologic/Lymphatic: reports: no symptoms reported Allergic/Immunologic: reports: no symptoms reported All Other Systems: Reviewed and Negative Past History - Adult - PAST MEDICAL HISTORY-ADULT Review of Records: reports: Old Records Reviewed, Nursing Assessment Review, Medications Reviewed, Social history reviewed & non-contributory. Major Childhood Illnesses: reports: denies history Cardiovascular: reports: denies history Respiratory: reports: tuberculosis (dx in 1990s treated) Gastrointestinal: reports: denies history Obstetrical/Gynecological: reports: denies history Genitourinary: reports: denies history Musculoskeletal: reports: denies history Neurological: reports: denies history Endocrine/Immune: reports: denies history Other Conditions: reports: denies history - PRIOR SURGERIES/PROCEDURES Surgical/Procedure History: reports: reviewed, not pertinent - IMMUNIZATION STATUS Childhood Immunizations: See Nurse Assessment Flu Vaccine: See Nurse Assessment - FAMILY HISTORY Family History: reviewed, not pertinent - SOCIAL HISTORY Smoking: cigarettes Substance Use: none/never Alcohol Use Frequency: occasionally Living Situation: family Physical Exam-General - PHYSICAL EXAM-ADULT Initial Vital Signs Reviewed: Yes - CONSTITUTIONAL General Appearance: alert, moderate distress, cachetic - EYES Eyes: PERRL/EOMI, scleral icterus - HEAD, EARS, NOSE, MOUTH & THROAT HENMT: dental decay - NECK Neck: non-tender, full range of motion - RESPIRATORY Respiratory: rales (GREATEST ON RIGHT), rhonchi, increased rate - CARDIOVASCULAR Cardiovascular: tachycardia - GASTROINTESTINAL (ABDOMEN) Abdominal Exam: non tender. negative: distended, rebound, tenderness, hepatomegaly, spleenomegaly - MUSCULOSKELETAL Back Exam: no vertebral tenderness Extremity: non-tender, pedal edema (R>L ANKLE) Peripheral Pulses: radial (R): 3+, radial (L): 3+ - SKIN Integumentary: pallor - NEUROLOGIC Neurologic: grossly normal, no motor/sensory deficits - PSYCHIATRIC Psych/Mental Status: normal thought content, normal thought process, oriented x 3, anxious Progress - PLAN OF CARE/RESULTS Progress/Plan/Lab Results: Vital Signs - 8 hr 10/15/16 05:05 10/15/16 06:05 Temperature 96.3 F L Pulse Rate 101 H 99 H Respiratory Rate 14 20 Blood Pressure 112/78 108/68 O2 Sat by Pulse Oximetry 97 94 L Orders Category Date Time Status CHEST-2 VIEWS [RAD] Stat Exams 10/15/16 05:09 Taken CBC WITH DIFF [HEME] Stat Lab 10/15/16 05:09 Ordered COMPREHENSIVE METABOLIC PANEL [CHEM] Stat Lab 10/15/16 05:09 Ordered - XRAY 1 XRAY Study: Chest (R PARTIAL PNEUMOTHORAX WITH ELEVATED HEMIDIAPHRAGM) Departure - Departure Date of Disposition Decision: 10/15/16 Time of Disposition Decision: 06:09 DIAGNOSIS: Pneumothorax, right Lung cancer Qualifiers: Laterality: right Lung location: lower lobe of lung Qualified Code(s): C34.31 - Malignant neoplasm of lower lobe, right bronchus or lung Disposition: ADMITTED INPATIENT 09 Certified Medical Emergency: Emergent Condition: Critical Referrals and Follow-Ups: UNKNOWN, [Primary Care Provider] - - Critical Care Note This patient required my direct & personal management of CC.: No
[2016-10-15] MEDS ORDERED: ATIVAN ONE (06:37)
[2016-10-15] MEDS ORDERED: ATIVAN IV ONE ×2 (06:37→13:48)
[2016-10-15] MEDS ORDERED: SOLU-MEDROL IV ONE (06:38)
[2016-10-15] MEDS ORDERED: DUONEB (A & A) INH ONE (06:38)
--- NOTE | 2016-10-15 06:40 | Diag Imaging Result Doc PS360 ---
EXAM: CHEST-2 VIEWS HISTORY: sob TECHNIQUE: Portable COMPARISON: 10/10/2016 FINDINGS: The patient has developed a moderate-sized right-sided pneumothorax. There is atelectasis to the lower lung. No change in the right jugular line. Heart is not enlarged. The left lung is well expanded and clear. There is fluid on the right as well. IMPRESSION: Interval development of a moderate sized right-sided hydropneumothorax. A preliminary report was called to Dr. Ashton in the emergency room at 6:35 AM Electronically signed by Andre Redd 10/15/2016 6:37 AM
--- NOTE | 2016-10-15 06:42 | Diag Imaging Result Doc PS360 ---
EXAM: Portable Chest HISTORY: Shortness of breath with increased heart rate TECHNIQUE: COMPARISON: Compared to film taken at 5:50 AM FINDINGS: No interval change in the moderate-sized right-sided hydropneumothorax. The appearance of the chest is similar to that of the prior exam. IMPRESSION: Moderate-sized right-sided hydropneumothorax. A preliminary result was called to Dr. Ashton in the emergency room at 6:35 AM. Electronically signed by Andre Redd 10/15/2016 6:39 AM
[2016-10-15] MEDS ORDERED: NS 4,000 ML ONE (06:52)
[2016-10-15] MEDS ORDERED: NS 1,000 ML IV ONE ×3 (06:55→10:13)
[2016-10-15] MEDS ORDERED: LOPRESSOR ONE (06:59)
[2016-10-15] MEDS ORDERED: LOPRESSOR IV ONE (06:59)
--- NOTE | 2016-10-15 07:01 | EKG Report ---
Test Performed on : 10/15/2016 06:50:05 AM Test Reason : Tachy Blood Pressure : / mmHG Vent. Rate : 155 BPM Atrial Rate : 155 BPM P-R Int : 192 ms QRS Dur : 084 ms QT Int : 256 ms P-R-T Axes : 105 -86 029 degrees QTc Int : 411 ms Sinus tachycardia. Left axis deviation Cannot rule out Anteroseptal infarct (cited on or before 14-MAY-2016) Abnormal ECG When compared with ECG of 10-OCT-2016 08:12, premature ventricular complexes. are no longer present Vent. rate has increased BY 73 BPM Questionable change in initial forces of Anterior leads ST now depressed in Anterolateral leads Nonspecific T wave abnormality now evident in Inferior leads Unconfirmed Result
[2016-10-15 07:33] LABS: BASO% 0.1 % (0.0-0.8); EOS# 0.01 X1000 (0.0-0.7); HEMATOCRIT 33.5 % (42.0-52.0); HEMOGLOBIN 10.4 g/dL (14.0-18.0); IMM GRAN# 0.07 X1000 (0.0-0.04); IMM GRAN% 0.3 % (0.0-0.5); LYMPH# 1.41 X1000 (1.2-3.4); LYMPH% 6.5 % (20.5-51.1); MANUAL DIFF NEEDED? YES; MCH 29.1 PG (27-31); MCV 93.6 FL (81-99); MONO# 0.27 X1000 (0.11-0.59); MONO% 1.2 % (1.7-9.3); MPV 10.4 FL (7.4-10.4); NEUT% 91.9 % (42.2-75.2); PLT 228 X1000 (130-400); RBC 3.58 XMIL (4.7-6.1)
[2016-10-15] MEDS ORDERED: ZOSYN 3.375 GM/NS 3.375 GM/50 ML IVPB IV ONE (07:36)
[2016-10-15] MEDS ORDERED: XYLOCAINE-MPF 1%/EPI 1:200,000 ONE (07:43)
[2016-10-15 07:48] LABS: BE -0.1 mmoll (-3.0-3.0); BLOOD TYPE ARTERIAL; DRAW SITE R RADIAL; METHB 1.2 % (0.0-1.5); PCO2(98.6) 27 mmHg (35-45); PO2(98.6) 54 mmHg (60-100); SAMPLE BLOOD; THB 10.4 g/dL (11.5-17.4); pH(98.6) 7.52 (7.35-7.45)
[2016-10-15 07:49] LABS: AGAP 16; ALBUMIN 2.4 g/dL (3.5-5.0); ALKALINE PHOSPHATASE 98 U/L (32-122); BUN 8 mg/dL (8-22); CHLORIDE 99 mmol/L (98-107); COSMO 269; GOT 10 U/L (10-34); GPT 6 U/L (10-44); SODIUM 135 mmol/L (136-145); TCO2 20 mmol/L (25-35); TOTAL PROTEIN 5.8 g/dL (6.3-8.3)
[2016-10-15 07:50] LABS: ALLEN TEST YES; MODALITY CANNULA
[2016-10-15] MEDS ORDERED: VANCOMYCIN 1 GM/NS 1 GM/250 ML IVPB IV ONE (08:32)
--- NOTE | 2016-10-15 08:48 | Diag Imaging Result Doc PS360 ---
EXAM: CHEST-PORTABLE HISTORY: R chest tube insertion TECHNIQUE: Portable AP COMPARISON: Compared to film taken earlier at 6:21 AM FINDINGS: Interval placement of a right-sided chest tube. There has been partial reexpansion of the right lung. Interval decrease in the size of the right-sided hydropneumothorax. No change In the right jugular line. The left lung remains well expanded and clear. IMPRESSION: Interval placement of a right-sided chest tube with decrease in the size of the right-sided hydropneumothorax. Electronically signed by Andre Redd 10/15/2016 8:46 AM
[2016-10-15] MEDS ORDERED: LEVOPHED 8 MG in D5 1/2 NS 250 ML IV SCH (10:15)
[2016-10-15] MEDS ORDERED: CARDIZEM IV ONE (10:26)
[2016-10-15] MEDS ORDERED: DUONEB (A & A) INH PRN (10:30)
[2016-10-15] MEDS ORDERED: VANCOMYCIN IV PER PHARMACY MISC SCH (10:45)
[2016-10-15] MEDS: CARDIZEM 100 MG/NS 100 MG/100 ML IVPB IV SCH (10:54)
[2016-10-15] MEDS: POTASSIUM CHLORIDE 20 MEQ/SWI 20 MEQ/100 ML IVPB IV SCH ×2 (10:56→12:35)
[2016-10-15] MEDS: DUONEB (A & A) INH SCH ×4 (11:06→23:30)
[2016-10-15 11:10] LABS: LYMPHS 5 % (21-51); MONO 2 % (1-9)
--- NOTE | 2016-10-15 11:17 | HISTORY AND PHYSICAL ---
CHIEF COMPLAINT: Shortness of breath. HISTORY OF PRESENT ILLNESS: This is a 51-year-old gentleman with a history of right lung adenocarcinoma recently diagnosed. He did have a right superficial internal jugular port placed on October 10 with her 1st dose of chemotherapy October 12. The patient began to complain of shortness of breath Saturday night. It has progressively gotten worse and on presentation to the emergency room he was anxious. He did have room air saturations of 88 at the scene with room air saturations of 95-97 on 6 L nasal cannula. His chest x-ray revealed interval development of a moderate-sized right-sided hydropneumothorax. The left lung is well expanded and clear. A chest tube was placed by Dr. Woody Venegas which the patient tolerated well and he is being admitted for further evaluation and treatment. PAST MEDICAL HISTORY: Adenocarcinoma to the right lung. PAST SURGICAL HISTORY: Port placement to right internal jugular. SOCIAL HISTORY: He smokes a pack a day. He drinks a few beers every day. He denies illicit drug use. He does live at home with family. ALLERGIES: No known drug allergies. HOME MEDICATIONS: Percocet 10 q.4 hours p.r.n. and fentanyl 25 mcg/hour patch topically every 3 days. REVIEW OF SYSTEMS: A 14 point review of systems is discussed with patient with pertinent positives being shortness of breath, dyspnea on exertion, orthopnea, PND. He denied chest pain, palpitations, productive cough, fever, chills, nausea, vomiting, diarrhea, constipation, black or bloody vomitus, black or bloody stools. PHYSICAL EXAMINATION: GENERAL: This is a 51-year-old male, who is sitting up in the bed, in moderate distress as he is awaiting chest tube placement. HEENT: Head is normocephalic, atraumatic. Pupils equal, round, react to light. EOMs are intact. Sclerae anicteric. Mucous membranes are dry. NECK: Supple. Trachea midline. He does have a right internal jugular port that is intact with the site clear. CARDIOVASCULAR: Tachycardic and a regular rhythm. S1 and S2 appreciated. No rubs, murmurs, or gallops heard. PULMONARY: Breath sounds are labored with rhonchi scattered throughout. He does have increased work of breathing. GASTROINTESTINAL: Abdomen is soft, nontender, nondistended with bowel sounds in all 4 quadrants. EXTREMITIES: No clubbing, cyanosis. He does have right lower extremity edema. Pulses palpable x4. DIAGNOSTICS: WBC is 21.7 with hemoglobin 10.4, hematocrit 33.5, and platelets of 228,000. Sodium is 135, potassium 3, BUN 8, creatinine 0.2 with a glucose of 104. Chest x-ray revealed a moderate-size right hydropneumothorax. Follow up chest x-ray after chest tube was placed revealed a decrease in the size of the right-sided hydropneumothorax. ASSESSMENT: 1. Right hydropneumothorax status post chest tube placement. 2. History of right lung adenocarcinoma with his 1st chemo being in 10/12/2016. 3. Hypokalemia. 4. Leukocytosis. PLAN: He will be transferred to [facility] and placed in ICU. We will continue with supplemental oxygen, IV fluids, as well as pain and nausea control. As he did have a postobstructive pneumonia in May, we will go ahead and obtain blood cultures and start antibiotic coverage. We will trend his labs. We will replete his potassium. CODE STATUS: The patient is a full code per his request. Further treatments pending hospital course. Dictated by SOPHIA Sandra for Hamlet Cardenas MD cc: SOPHIA Sandra MD
--- NOTE | 2016-10-15 11:29 | EKG Report ---
Test Performed on : 10/15/2016 10:34:37 AM Test Reason : tachycardia Blood Pressure : / mmHG Vent. Rate : 173 BPM Atrial Rate : 174 BPM P-R Int : 000 ms QRS Dur : 074 ms QT Int : 284 ms P-R-T Axes : 000 -85 068 degrees QTc Int : 481 ms Atrial fibrillation. with rapid ventricular response. Left axis deviation Septal infarct (cited on or before 14-MAY-2016) Abnormal ECG When compared with ECG of 15-OCT-2016 06:50, (Unconfirmed) Atrial fibrillation. has replaced Sinus rhythm. Questionable change in initial forces of Anterior leads ST now depressed in Inferior leads Nonspecific T wave abnormality no longer evident in Inferior leads Confirmed by Tamera Jeffries MD ([id number]) on 10/16/2016 9:06:49 AM
--- NOTE | 2016-10-15 11:38 | PROGRESS NOTE ---
DATE: 10/15/2016 UPDATE: Patient arrived from [facility] to bed ICU 12. At this time, he is hypoxic, tachycardic, and hypotensive. He is complaining of shortness of breath and midsternal pain radiating to his back. He has already had a chest tube placed and is in good position per the radiology report. We reviewed electrocardiography which revealed that he was in atrial fibrillation/flutter at a rate of 150 beats per minute. We subsequently rechecked his EKG on arrival and it confirmed atrial fibrillation, RVR in the 150s. Pt is critically ill, we are going to place the him on a Levophed drip, Cardizem bolus and drip, and consult multiple subspecialties including pulmonary critical care, cardiology, hematology/oncology, and surgery for chest tube management. ASSESSMENT: 1. Hypoxic respiratory failure. 2. Atrial fibrillation/flutter, rapid ventricular response. 3. Septic shock. 4. Community-acquired pneumonia. 5. Hydropneumothorax 6. Chronic obstructive pulmonary disease exacerbation. 7. Severe protein calorie malnutrition. 8. Nicotine dependence. 9. Anemia. 10. Hypokalemia. 11. Lung CA PLAN: The patient is in the ICU. We have discussed the possibility of intubation if he does not improve or if he worsens. He requests to be a full code. We will continue broad-spectrum antibiotics and consult the aforementioned subspecialties. He will need pressors, fluids, breathing treatments, and aggressive pulmonary toilet. He is at a high risk for pulmonary embolus given his hypoxia, hypotension, and tachycardia. We are going to check a CTA to rule out PE and better evaluate his lung parenchyma. We have consulted Dr. Venegas for chest tube management. We will monitor his chest tube output closely. We will place him on DVT prophylaxis with Lovenox for now. If needed, we will increase to 1 mg/kg. Dictated by SOPHIA Hernandez for Eduardo Hastings MD cc: SOPHIA Hernandez MD [facility]
[2016-10-15 11:42] LABS: MAGNESIUM 1.6 mg/dL (1.5-2.7)
[2016-10-15 11:46] LABS: INR 1.22
[2016-10-15] MEDS: NICODERM PATCH TD SCH (12:34)
--- NOTE | 2016-10-15 12:51 | CONSULTATION ---
DATE OF CONSULTATION: 10/15/2016 REASON FOR CONSULTATION: Cardiology was consulted for transient atrial fibrillation, given Cardizem and is back in sinus rhythm. HISTORY OF PRESENT ILLNESS: A 51-year-old gentleman with history of right adenocarcinoma, recently diagnosed. Had a superficial internal jugular port placed. He is admitted with increasing shortness of breath and was noted to have moderate size right hydropneumothorax status post chest tube placement. This was following the port placement. Patient is currently requiring Levophed for pressure support. Does not complain of anginal symptoms. He has shortness of breath which has improved since his admission. He has a significant past medical history and has significant loss of weight as well. REVIEW OF SYSTEMS: GI: There is no history of nausea, vomiting, diarrhea. There is no history of hematemesis or melena. No anginal symptoms. Genitourinary: There is no dysuria or hematuria. Respiratory: Has been diagnosed to have retinal carcinoma of the right lung. There is no cough or hemoptysis. PAST MEDICAL HISTORY: 1. Adenocarcinoma of the right lung. 2. Smoker. Smokes a pack of cigarettes a day. 3. History of pneumonia. 4. COPD. 5. Renal insufficiency. 6. Tobacco abuse. 7. Alcohol abuse. ALLERGIES: Not known to be allergic to any medications. MEDICATIONS: His home medications include Percocet and fentanyl patch. SOCIAL HISTORY: As above. FAMILY HISTORY: Father had a heart attack. Brother had a heart attack. Mother also had coronary artery disease. PHYSICAL EXAMINATION: Vital Signs: Blood pressure is 103/75 on Levophed drip. Cardiovascular System: Jugular venous pressure was normal. First and second heart sounds were heard. Lungs/Chest: Scattered expiratory wheeze. He had a chest tube on the right lung. Abdomen: Soft, nontender. Central nervous system: Alert. Detailed central nervous system examination not performed. ASSESSMENT AND PLAN: Mr. Penaloza is a 51-year-old gentleman with significant weight loss, history of smoker, adenocarcinoma of the right lung, had a port placement, subsequently pneumothorax and he has a chest tube in place. 1. Patient transiently went into atrial fibrillation requiring Cardizem 10 mg IV. He is currently in sinus rhythm. Would recommend treating him with medications, probably this issue of atrial fibrillation is multifactorial given his pneumothorax as well as adenocarcinoma of lung. We will make sure there is no pericardial effusion. We will get an echocardiogram to assess cardiac and valvular function. CT angiogram has also been ordered. We will continue with the Lovenox and as far as laboratory examination is concerned, his sodium was 135, potassium 3.0, BUN 8, creatinine of 0.2. His atrial fibrillation is multifactorial secondary to lung problems, pneumothorax as well as severe hypokalemia. Will correct his hypokalemia and that should help in controlling his atrial fibrillation as well. 2. As far as his hypertension is concerned, he is on Levophed. He is going to have a CT scan done. He is likely to benefit from IV fluids. We will hydrate him as well. Thank you for the consult. cc: Anupam Motta MD
[2016-10-15] MEDS: VANCOMYCIN 1.5 GM in NS 250 ML IV SCH (13:25)
[2016-10-15] MEDS: DILAUDID IV PRN (14:42)
[2016-10-15] MEDS: DURAGESIC 100 MICROGM/HR PATCH TD SCH (14:43)
[2016-10-15] MEDS: ZOSYN 3.375 GM/NS 3.375 GM/50 ML IVPB IV SCH ×2 (17:11→21:14)
--- NOTE | 2016-10-15 18:23 | ECHO REPORT ---
ORDER DATE: 10/15/2016 INTERPRETING PHYSICIAN: Dr. Cedeno REQUESTING PHYSICIAN: CLINICAL INDICATIONS: A 51-year-old male with atrial fibrillation, chest tube, lung cancer. M-MODE MEASUREMENTS: Right ventricle: 2.7 cm. Left ventricle end diastole: 4.7 cm. Left ventricle end systole: 2.7 cm. Posterior wall: 0.9 cm. Interventricular septum: 1.0 cm. Left atrium: 3.1 cm. Aortic root: 3.5 cm. SUMMARY OF 2-DIMENSIONAL IMAGING: The left ventricle appears to be normal in size and function. Global ejection fraction is probably somewhere in the range of 60-65%. The right ventricle is not dilated. The aortic valve looks normal. Color flow mapping unremarkable. The pulmonic valve looks normal. Color flow mapping unremarkable. The tricuspid valve shows a mild degree of regurgitation. The inferior vena cava is not dilated. Pulmonary pressure is estimated at 47 mmHg. The mitral valve appears to be grossly normal. Color flow mapping indicates a mild degree of regurgitation. Doppler evaluation of the mitral inflow could not be carried out because the study was too difficult and apical views were not adequate for that matter. A small pericardial effusion is present. There is no pericardial tamponade. Pleural effusions are probably present. The study, again, was technically difficult. IMPRESSION: In summary, this study showed: 1. Technically difficult study. Patient has limited acoustic windows. 2. Small pericardial effusion without tamponade. 3. Normal left ventricular systolic function. Ejection fraction estimated at 60-65% without any significant valvular abnormality. 4. There is no evidence of tamponade. Clinical correlation recommended. cc: MD Emeli Garza PA
--- NOTE | 2016-10-15 18:41 | Diag Imaging Result Doc PS360 ---
ANGIOGRAM/PULMONARY ARTERIES - 10/15/2016 INDICATION: resp failure, r/o PE TECHNIQUE: Axial CT images were obtained after administering intravenous contrast. Coronal MIP images were generated. A CT dose reduction protocol was used. COMPARISON: 05/24/2016 FINDINGS: There are acute pulmonary emboli in numerous bilateral segmental pulmonary arteries, with a heavy clot burden. There is a trace pneumothorax at the right lung. There is a right-sided chest tube. There is progression in the consolidation of the right lower lobe. The right-sided bronchi are all completely impacted. This is due to either mucus impaction or significant tumor invasion. The left lung is relatively well expanded. There is some trace linear atelectasis or infiltrate at the left lung base. There is cachexia and ascites. There are moderate degenerative changes of the spine. No acute or suspicious bony lesion. IMPRESSION: 1. Acute bilateral pulmonary emboli. 2. Surgical changes with a chest tube on the right. Trace right pneumothorax. 3. Progression in consolidation of the right lower lobe. Fluid or mucus impaction of all the right-sided bronchi. 4. Report was immediately called to the ICU. Electronically signed by Moises Schroeder 10/15/2016 6:39 PM
--- NOTE | 2016-10-15 19:22 | OPERATIVE NOTE ---
PROCEDURE DATE: 10/25/2016 PREOPERATIVE DIAGNOSIS: 1. Right-sided pneumothorax. 2. Right lung cancer. POSTOPERATIVE DIAGNOSIS: 1. Right-sided pneumothorax. 2. Right lung cancer. PROCEDURE PERFORMED: Placement of right-sided 12-Japanese chest tube. COMPLICATION: None. ESTIMATED BLOOD LOSS: None. COMPLICATIONS: None. ANESTHESIA: Local. INDICATIONS: A 49-year-old male with history of advanced right lung cancer undergoing chemotherapy who had a port placed last week and was found to have a pneumothorax early this morning. Is symptomatic, but no impending tension physiology. FINDING: There is some straw-colored pleural fluid, air aspirated, but no significant hammond. No evidence of tension physiology. OPERATIVE NOTE: Risks, benefits, alternatives discussed with the patient, and he consented to the procedure. His pre-procedural imaging was reviewed and surgical site was confirmed. We prepped his right chest with chlorhexidine and draped in usual fashion. Time-out was performed. Using sterile technique we infiltrated local anesthetic in the skin overlying the 5th rib down to the periosteum and using the local needle, we aspirated air from the chest, advancing this over the top of the rib to prevent injury to the neurovascular bundle of the above rib. We then infiltrated the pleura and then using the 12-Japanese pleural catheter device, we advanced this under negative pressure into the pleural space until we aspirated the air back and then advanced the catheter slowly, protecting the underlying lung parenchyma. There was some air return and some straw-colored fluid. We hooked this to a Pleur-evac device and secured it with 0 silk suture. There was initial evacuation of air, but there was no residual air leak. We placed to - 20 suction, applied a sterile dressing. He tolerated the procedure well with no identified complication. We will keep his tube to suction. Post procedure chest x-ray showed resolution of pneumothorax with good position of the catheter. We will continue to follow along and manage him as he recovers over the next 24-48 hours. cc: Virgen Venegas MD
--- NOTE | 2016-10-15 19:37 | CONSULTATION ---
DATE OF CONSULTATION: 10/15/2016 HISTORY OF PRESENT ILLNESS: This is a 51-year-old male known to me who is undergoing chemotherapy for right lung cancer that is locally advanced. Quite cachectic. He had a MediPort placed Saturday of last week. He states he did well. His postop chest x-ray showed no pneumothorax or evidence of complication. Access port on . On Saturday they gave him chemotherapy. Saturday and over the course of Saturday he began experiencing some shortness of breath. His family was concerned so they brought to the emergency room where he was found to be tachycardic with some low oxygen saturations on supplemental O2. Chest x-ray showed a pneumothorax on the right without any obvious tension physiology. PAST MEDICAL HISTORY: 1. Adenocarcinoma of right lung. 2. History of ongoing tobacco abuse. Heavy smoker currently. 3. COPD. 4. Renal insufficiency. History of alcohol abuse. PAST SURGICAL HISTORY: He has not had any thoracic surgery procedures but did have a right internal jugular vein Mediport placement last week. REVIEW OF SYSTEMS: Ten point negative other than what is mentioned in HPI. SOCIAL HISTORY: Heavy smoker. History of alcohol. He has lots family here with him. FAMILY HISTORY: Significant for heart disease and lung disease. PHYSICAL EXAMINATION: Vital Signs: Temperature was low is 96.3, heart rate was in the 150s, blood pressure systolics of 90s to 100s occasionally dipping lower than that. Oxygen saturation was high 80s to low 90s on 3-4 L nasal cannula. General: He is alert, in no obvious distress but very cachectic and chronically ill appearing. Cardiovascular: He appears to be in sinus tachycardia. Pulmonary: He has got coarse rhonchi bilaterally, equal chest rise, no air leak, on supplemental O2. Abdomen: Soft, nontender. Integumentary: Warm, dry without jaundice. Musculoskeletal: Significant diffuse muscle atrophy. LABS: White count 21, hematocrit 33, platelets 220,000. INR is 1.22. ABG was 7.52, 27, 54, 24. Creatinine 0.2. Glucose is 104, albumin is 2.4, troponins are negative. CHEST X-RAY: Shows a moderate size right pneumothorax with possible effusion component as well, some atelectasis and consolidation in right lower lobe. I do not see any midline shift. If anything, slight deviation to the side of the pneumothorax. ASSESSMENT AND PLAN: This is a 51-year-old male with a right-sided pneumothorax after internal jugular vein port placement. It is unclear if this is related to his procedure or related to his underlying lung disease with COPD and possibility of ruptured bleb. This could have been exacerbated by positive pressure ventilation during his anesthesia. However, I had a long discussion with the family although the port went uneventfully and the postop chest x-ray showed no pneumothorax is possibly related to that. Nevertheless I recommended chest tube placement to resolve this as he does appear to be quite symptomatic from it with risk of bleeding, infection, damage to lung and possible requiring surgical intervention if his lung fails to expand or he has a prolonged air leak with the family and they consent to the procedure. We placed an urgent bedside chest tube at this point and we will follow him along. He will be admitted to ICU service for Medicine. Cardiology consultation for workup of this tachycardia, possibly intermittent atrial fibrillation and need rate control. He also has leukocytosis and we will treat him for pneumonia as well. He has received antibiotics from this department. cc: Virgen Venegas MD MTDD
[2016-10-15] MEDS: PERCOCET-10 PO PRN (21:13)
[2016-10-15] MEDS: MARINOL PO SCH (21:14)
[2016-10-15] MEDS: LOVENOX SUBQ SCH (21:14)
[2016-10-16] MEDS: VANCOMYCIN 1.5 GM in NS 250 ML IV SCH ×2 (00:32→12:36)
[2016-10-16] MEDS: PERCOCET-10 PO PRN ×3 (02:09→14:27)
[2016-10-16] MEDS: ZOSYN 3.375 GM/NS 3.375 GM/50 ML IVPB IV SCH ×4 (02:09→20:47)
[2016-10-16] MEDS: DUONEB (A & A) INH SCH ×6 (03:10→22:42)
[2016-10-16 04:41] LABS: ALLEN TEST YES; BE -1.8 mmoll (-3.0-3.0); BLOOD TYPE ARTERIAL; DRAW SITE R RADIAL; METHB 0.3 % (0.0-1.5); O2(CT) 14.9 mL/dL (15.0-23.0); PCO2(98.6) 39 mmHg (35-45); PO2(98.6) 91 mmHg (60-100); SAMPLE BLOOD; SAO2 99.5 % (95.0-100.0); THB 10.9 g/dL (11.5-17.4); pH(98.6) 7.38 (7.35-7.45)
[2016-10-16 04:45] LABS: MODALITY CANNULA
[2016-10-16] MEDS: DILAUDID IV PRN ×2 (04:53→19:54)
--- NOTE | 2016-10-16 05:54 | CONSULTATION ---
DATE OF CONSULTATION: 10/15/2016 REQUESTING PHYSICIAN: Eduardo Hastings MD REASON FOR CONSULTATION: Pneumothorax. HISTORY OF PRESENT ILLNESS: Mr. Penaloza is a 51-year-old white male with severe COPD, who was diagnosed with an adenocarcinoma involving the right lower lobe 05/16/2016. The patient has received chemotherapy under the direction of Dr. Ku. The patient developed progressive shortness of breath. With hypoxemia on room air and presented to the emergency room. Chest x-ray revealed moderate right-sided hydropneumothorax and a small bore chest tube was placed by Dr. Venegas. His hospital course has been further complicated by atrial fibrillation/atrial flutter which resolved with Cardizem. He is now awake, alert and clinically feels better. PAST MEDICAL HISTORY/PROBLEM LIST: 1. Severe COPD. 2. Inoperable adenocarcinoma of the lung. SOCIAL HISTORY: Ongoing tobacco use. Daily alcohol use. FAMILY HISTORY: Noncontributory to current presentation. PHYSICAL EXAMINATION: General: Reveals a frail, chronically ill-appearing male, who appears much older than his stated age of 51. Vital Signs: BP 113/75, heart rate 102, respiration rate 28. Oxygen saturation 93% on 3 L per nasal cannula. BMI 15.4. HEENT: Pupils are equal and reactive. There is temporal wasting. Oropharynx is clear. Neck: Supple. Chest: Reveals diminished breath sounds, right base with coarse rhonchi bilaterally. The patient has lost a significant amount of chest wall subcutaneous tissue and muscle mass. Cardiac: Increased rate. Regular rhythm. Abdomen: Scaphoid and soft. Extremities: Without edema. DIAGNOSTIC DATA: CT scan of the thorax is reviewed. There has been progressive consolidation of the right lower lobe. There is increased right lower lobe mass adjacent to the esophagus. There is extensive and progressive subcarinal and mediastinal disease which was not present 05/24/2016. There are bilateral pulmonary emboli, diffuse emphysematous changes. Arterial blood gas on 4 L per nasal cannula pH 7.52, pCO2 of 27, PO2 of 54. IMPRESSION: A 51-year-old white male with: 1. Progressive lung cancer with extensive mediastinal disease. 2. Cachexia with decreasing performance status. 3. Bilateral pulmonary emboli. 4. Acute hypoxemic respiratory failure. 5. Severe protein calorie malnutrition. 6. Spontaneous pneumothorax with cardiac dysrhythmias. RECOMMENDATIONS: 1. Continue oxygen as needed to maintain saturation greater than 90%. 2. Agree with Lovenox dosing as you are doing. 3. Check venous Dopplers of the lower extremities to evaluate the amount of clot burden in the legs. 4. Cardiac rate control as per Cardiology. 5. With progression of his adenocarcinoma, debilitated status, bilateral pulmonary emboli, would recommend initiating end-of-life discussions with this patient. His prognosis is extremely poor and he is unlikely to survive 6 months. cc: Tevin Rodriguez MD
[2016-10-16 06:00] LABS: HEMATOCRIT 26.6 % (42.0-52.0); MCH 29.7 PG (27-31); MCHC 30.1 g/dL (33-37); MCV 98.9 FL (81-99); MPV 10.2 FL (7.4-10.4); RBC 2.69 XMIL (4.7-6.1)
--- NOTE | 2016-10-16 06:10 | EKG Report ---
Test Performed on : 10/16/2016 05:08:31 AM Test Reason : afib Blood Pressure : / mmHG Vent. Rate : 081 BPM Atrial Rate : 081 BPM P-R Int : 158 ms QRS Dur : 096 ms QT Int : 398 ms P-R-T Axes : 078 -40 061 degrees QTc Int : 462 ms Normal sinus rhythm. Possible Left atrial enlargement Left axis deviation Anterior infarct (cited on or before 14-MAY-2016) Abnormal ECG When compared with ECG of 15-OCT-2016 10:34, (Unconfirmed) Sinus rhythm. has replaced Atrial fibrillation. Vent. rate has decreased BY 92 BPM Questionable change in QRS duration Questionable change in initial forces of Anteroseptal leads Confirmed by Mervin CALIXTO, MIoana Lees ([id number]) on 10/16/2016 9:07:33 AM
[2016-10-16 06:12] LABS: AGAP 9; BUN 8 mg/dL (8-22); CALCIUM 7.9 mg/dL (8.8-10.2); CHLORIDE 109 mmol/L (98-107); COSMO 278; SODIUM 140 mmol/L (136-145); TCO2 22 mmol/L (25-35)
[2016-10-16 06:55] LABS: FERRITIN 2398 ng/mL (30-400)
--- NOTE | 2016-10-16 07:25 | Diag Imaging Result Doc PS360 ---
EXAM: CHEST-PORTABLE INDICATION: dyspnea TECHNIQUE: One view COMPARISON: 10/15/2016 FINDINGS: Right chest port is stable. A small right chest tube is in stable position. There is a tiny residual right apical pneumothorax that has decreased further in size during the interval. There is worsening consolidation at the right lung base, however. At least a component of this is atelectasis. Cardiac silhouette is stable. IMPRESSION: Further decrease in size of the right pneumothorax but worsening of opacity at the right lung base. Electronically signed by Chacho Mcgarry 10/16/2016 7:23 AM
[2016-10-16] MEDS: LOVENOX SUBQ SCH ×2 (08:47→19:55)
[2016-10-16] MEDS: NICODERM PATCH TD SCH (08:47)
[2016-10-16] MEDS: MARINOL PO SCH ×2 (08:47→20:47)
[2016-10-16] MEDS: CARDIZEM 100 MG/NS 100 MG/100 ML IVPB IV SCH (08:51)
[2016-10-16] MEDS ORDERED: LOVENOX SUBQ SCH (09:00)
[2016-10-16] MEDS ORDERED: KLOR-CON PO ONE (10:54)
--- NOTE | 2016-10-16 13:15 | PROGRESS NOTE ---
DATE: 10/16/2016 SUBJECTIVE: I saw Mr. Penaloza today in the intensive care unit with the at the bedside at the time of the encounter. He refers to be doing a lot better. According to him, his breathing has improved. OBJECTIVE: Vital signs: Blood pressure is 97/59, pulse 83, respiration is 25 temperature is 98.5 degrees. General: Mr. Yost is a 51-year-old male. He looks cachectic and under nourished in bed. He does not seem to be in any distress. HEENT: Mucosa is pink and moist. Anicteric. Acyanotic. Neck: Supple. Chest: Air entry is bilaterally reduced by more so on the right posterior lung field. There is some faint end-expiratory wheezing. Cardiovascular: Regular rate and rhythm. No murmur. Chest Wall: There is a Port-A-Cath under right anterior chest wall. Abdomen: Soft. Extremities: No pedal edema. 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 There is no focal neurological deficit. LABORATORY DATA: WBC is 16.45, hemoglobin is 10.0, platelet of 240. Chemistries reviewed: Sodium is 140, potassium is 3.0, chloride is 109, bicarbonate is 22, folate is 5.4. DIAGNOSTIC DATA: A chest x-ray done this morning shows further decrease in size of right pneumothorax, but worsening of opacity in the right lung base. An echocardiogram done yesterday shows small pericardial effusion, ejection fraction of 60% to 65%. CURRENT MEDICATIONS: 1. Albuterol nebulizers. 2. Marinol 5 mg b.i.d. 3. Lovenox 50 b.i.d. 4. Fentanyl patch. 5. Dilaudid. 6. Ativan. 7. Vancomycin. 8. Zosyn. ASSESSMENT: 1. Acute hypoxemic respiratory failure. 2. Bilateral pulmonary emboli. I guess this is secondary to the underlying malignancy. 3. Severe protein calorie malnutrition. 4. Right-sided pneumothorax status post chest tube. There has been gradual resolution of this with the chest tube. Patient is being followed by surgery. 5. Progressive worsening of the right lung with extensive mediastinal disease. The patient is being followed by Dr. Ku and he is currently actively getting chemotherapy. 6. Cachexia with decreased performance status. 7. Active tobacco use. 8. Folic acid deficiency. We will replace this. 9. Hypokalemia. We will replace this. cc: Igor Barrientos MD MTDD
--- NOTE | 2016-10-16 13:40 | CONSULTATION ---
DATE OF CONSULTATION: 10/15/2016 ADMITTING PHYSICIAN: Dr. Hamlet Cardenas. REQUESTING PHYSICIAN: Dr. Cardenas. ONCOLOGIST: Dr. Ku. CHIEF COMPLAINT: Lung cancer with respiratory failure. HISTORY OF PRESENT ILLNESS: Mr. Penaloza is a very pleasant, 51-year-old male with a history of non- small cell lung cancer status post cycle 5 day 1 of carboplatin and Abraxane. The patient underwent right superficial internal jugular port placement on October 10. The patient began to complain of shortness of breath Saturday night with progressive worsening. He presented to [facility] Emergency Department with significant anxiety. His O2 saturations at that time were 88% and improved to 95% on 6 L nasal cannula O2. He underwent chest x -ray skinny which revealed interval development of a moderate-sized right-sided hydropneumothorax. Chest tube was placed by Dr. Woody Venegas. The patient tolerated the procedure well. He was admitted to ICU for close observation and we are consulted secondary to the patient's history of non -small cell lung cancer. PAST MEDICAL HISTORY: Adenocarcinoma of the right lung. PAST SURGICAL HISTORY: Port placement to right IJ. SOCIAL HISTORY: The patient smokes 1 pack of cigarettes daily. He drinks a few beers every day. He denies any illicit drug use. MEDICATIONS ON ADMISSION: 1. Percocet. 2. Fentanyl patch. ALLERGIES: The patient has no known drug allergies. REVIEW OF SYSTEMS: A 14 point review of systems was obtained and is negative except for as mentioned in HPI. PHYSICAL EXAM: Mr. Penaloza is a 51-year-old, male, who is significantly cachectic, lying supine in bed in no immediate distress. Vital signs: Temp afebrile. Blood pressure 108/68, heart rate 99, respirations of 20, O2 saturation is 94% on 3 L nasal cannula O2. HEENT: Normocephalic, atraumatic. Mucous membranes are slightly pale and moist. Sclerae is anicteric. Extraocular movements intact. Neck: Supple. Lungs: With decreased breath sounds in the right lower lobe and coarse breath sounds throughout. Chest expansion is equal bilaterally. CV: S1, S2 is heard without murmur, rub or gallop. Abdomen: Soft, nondistended, nontender. Bowel sounds positive all quadrants. No rebound or guarding noted. Extremities: Without clubbing, cyanosis, or edema. Dermatologic: No rashes, bruises or lesions. Neurologic: The patient is awake, alert, and oriented x3. He has no focal deficit at this time. LABORATORY DATA: Hemoglobin 10.4, hematocrit 33.5, white blood cell count is 21.74, platelets 228,000. ANC is 19.96. Sodium 135, potassium 3.0, chloride 99, CO2 is 20, BUN 8, creatinine 0.2, glucose 104, calcium is 8.0. Blood cultures are currently pending. IMAGING STUDIES: Chest x-ray reveals a right chest tube well placed with right hydropneumothorax improving. ASSESSMENT AND PLAN: 1. Non-small cell lung cancer status post cycle 5 day 1 of carboplatin and Abraxane. We will hold the patient's chemotherapy for now until his acute illness has passed. 2. Pneumothorax status post chest tube placement. The patient is lying supine in bed on 3 L nasal cannula O2 with an oxygen saturation of 94%. He is less dyspneic at this time. 3. Atrial flutter resolved after Cardizem 10 mg. The patient is currently in sinus tach with a heart rate of 104. 4. Hypotension improved on IV fluids. Blood pressure is currently 108/68. 5. Hypokalemia. We will replete per protocol 6. We will follow along with you and make further recommendations pending outcomes. The above reflects the history, exam, assessment and plan of Dr. Mcclure. Dictated by SOPHIA Alberts for Nikki Mcclure MD cc: SOPHIA Alberts MD I have seen an examined the patient and agree with the above A/P> Nikki Mcclure MD MTDD
--- NOTE | 2016-10-16 13:45 | PROGRESS NOTE ---
DATE: 10/16/2016 HEMATOLOGY/ONCOLOGY: CHIEF COMPLAINT: "My breathing has improved." HISTORY OF PRESENT ILLNESS: Mr. Penaloza is a very pleasant, 51-year-old, male who was admitted with acute shortness of breath. He has been found to have bilateral pulmonary emboli on angiography. He is currently on Lovenox. He reports that he is breathing better at this time. Chest tube is in place and remains connected to suction. PHYSICAL EXAMINATION: Vital Signs: Temperature 98.4 degrees, blood pressure 97 /59, heart rate 89, respirations 19, O2 saturation is 94% on 5 L nasal cannula O2. CV: S1 and S2 are found. Regular rate and rhythm. Chest: Breath sounds are clear to auscultation bilaterally with diminished breath sounds in bilateral bases. Chest expansion is equal bilaterally. Abdomen: Soft, nontender, nondistended. Bowel sounds are positive in all quadrants without rebound or guarding noted. Extremities: The patient does have 1+ bilateral lower extremity edema, nonpitting. LABORATORY DATA: Hemoglobin 8, hematocrit 26.6, white blood cell count is 16.45 , platelets 242,000. Sodium 140, potassium 3, chloride 109, CO2 is 22, BUN 8, creatinine 0.3, and glucose is 108. ASSESSMENT AND PLAN: 1. Non-small cell lung cancer, status post cycle 5, day 1 of carboplatin and Abraxane. We will continue to hold chemotherapy for now until the patient's acute illness has passed. 2. Hydropneumothorax, status post chest tube placement. The patient remains connected to suction and has much less shortness of breath at this time. 3. Bilateral pulmonary emboli. The patient is currently on Lovenox per admitting physician. 4. Atrial flutter, resolved status post Cardizem 10 mg. Patient is currently in a sinus rhythm. 5. Right lung base worsening opacity with some questionable element of pneumonia. The patient is currently on vancomycin and Zosyn prophylactically. 6. Hypotension. The patient's blood pressure is currently improved to 97/59 and he is currently off of all pressors. 7. Hypokalemia. The patient is being repleted with potassium intravenously. 8. Anemia. We will transfuse packed red blood cells 1 unit at this time. We will continue to follow CBC. 9. We will follow along and make further recommendations pending outcomes. Dictated by SOPHIA Alberts for Nikki Drew MD cc: SOPHIA Alberts MD I have seen and examined the patient and agree with above A/P. Nikki RITTERD
--- NOTE | 2016-10-16 14:08 | PROGRESS NOTE ---
DATE: 10/16/2016 SUBJECTIVE: He feels a lot better. Rate is now controlled. He is breathing more comfortably. Denies any chest pain. He had a pulmonary arteriogram that showed acute bilateral pulmonary emboli, a trace right pneumothorax, large emphysematous changes to the right lung and progression consolidation right lower lobe. PHYSICAL EXAM: Vital signs: Temperature was 99 now his T-max overnight and 98.9 this morning, pulse 88, blood pressure has been in the systolic 80s to 90s, oximetry saturations mid 90s on 4-5 L. General: He is alert, breathing comfortably. Does have course rhonchi. Cardiovascular: Normal rate, regular rhythm. Right chest tube has some serous drainage in the tube, 750 recorded overnight, with forced expiration while suction there is a small air leak noted but this is very minimal . ASSESSMENT AND PLAN: A 51-year-old male with history of lung cancer is receiving palliative chemotherapy, developed a pneumothorax I suspect related to his positive pressure ventilation at the time of his port placement. He is clinically improving. He is found to have bilateral pulmonary embolism. I think he is nearing end stages of his underlying malignancy. Given the small air leak and the findings on angiogram will keep his tube to suction today and plan to water- seal tomorrow, if his lung remains up will removed at this point, Dr. Rodriguez is following, Dr. Ku's team is also following, the hospitalists are helping with care of this very sick gentleman. Continue follow along. cc: Virgen Venegas MD [facility]
[2016-10-16] MEDS: FOLIC ACID PO SCH (20:47)
[2016-10-17] MEDS: DILAUDID IV PRN ×5 (01:27→20:08)
[2016-10-17] MEDS: VANCOMYCIN 1.5 GM in NS 250 ML IV SCH ×2 (01:44→13:17)
[2016-10-17] MEDS: CARDIZEM 100 MG/NS 100 MG/100 ML IVPB IV SCH (03:33)
[2016-10-17] MEDS: ZOSYN 3.375 GM/NS 3.375 GM/50 ML IVPB IV SCH ×4 (03:34→20:06)
[2016-10-17] MEDS: DUONEB (A & A) INH SCH ×6 (03:44→23:25)
[2016-10-17 04:45] LABS: ALLEN TEST YES; BE -1.9 mmoll (-3.0-3.0); BLOOD TYPE ARTERIAL; DRAW SITE R RADIAL; O2(CT) 13.6 mL/dL (15.0-23.0); PCO2(98.6) 32 mmHg (35-45); PO2(98.6) 95 mmHg (60-100); SAMPLE BLOOD; SAO2 98.8 % (95.0-100.0); pH(98.6) 7.44 (7.35-7.45)
[2016-10-17 04:47] LABS: MODALITY CANNULA
[2016-10-17 06:09] LABS: HEMATOCRIT 27.8 % (42.0-52.0); HEMOGLOBIN 8.3 g/dL (14.0-18.0); MCH 28.8 PG (27-31); MCHC 29.9 g/dL (33-37); MCV 96.5 FL (81-99); MPV 10.1 FL (7.4-10.4); RBC 2.88 XMIL (4.7-6.1)
[2016-10-17 06:25] LABS: AGAP 12; BUN 8 mg/dL (8-22); CALCIUM 7.7 mg/dL (8.8-10.2); CHLORIDE 107 mmol/L (98-107); COSMO 278; POTASSIUM 3.6 mmol/L (3.5-5.1); SODIUM 140 mmol/L (136-145); TCO2 21 mmol/L (25-35)
--- NOTE | 2016-10-17 07:24 | Diag Imaging Result Doc PS360 ---
CHEST-PORTABLE - 10/17/2016 INDICATION: dyspnea TECHNIQUE: COMPARISON: 10/16/2016 FINDINGS: Stable small bore chest tube on the right. There is no appreciable pneumothorax. Stable severe opacification at the right lung base. The left lung remains well expanded with no significant infiltrates. No mediastinal shift. Heart size remains normal. IMPRESSION: No significant change from prior. Electronically signed by Moises Schroeder 10/17/2016 7:22 AM
[2016-10-17] MEDS: LOVENOX SUBQ SCH ×2 (08:37→19:54)
[2016-10-17] MEDS: FOLIC ACID PO SCH ×2 (08:45→20:05)
[2016-10-17] MEDS: MARINOL PO SCH ×2 (08:45→20:06)
[2016-10-17] MEDS: NICODERM PATCH TD SCH (08:46)
[2016-10-17] MEDS: PERCOCET-10 PO PRN (11:10)
[2016-10-17] MEDS: ATIVAN IV PRN (11:10)
--- NOTE | 2016-10-17 11:10 | PROGRESS NOTE ---
DATE: 10/17/2016 SUBJECTIVE: This morning, Mr. Penaloza refers to be doing a lot better. Denies of any acute medical problem. His breathing is also improved. OBJECTIVE: Vital Signs: Blood pressure is 92/56, pulse is 77, respirations are 20, temperature is 99.5 degrees. Patient is saturating 97% on 4 L of oxygen. General Examination: Mr. Penaloza is a 51-year-old, male. He looks emaciated and has a BMI of 15.4. He is in bed, not seemingly distress. HEENT: Mucosa is pink and moist. Anicteric. Acyanotic. Neck: Supple. Chest: Air entry is bilaterally reduced, more so to the right posterior lung field than the left. Cardiovascular: Regular rate and rhythm. Abdomen: Soft. Extremities: No pedal edema. 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 Integumentary: There is a port in the right anterior chest wall. Laboratory Data: WBC is up to 17.69, hemoglobin is 8.3, platelet count of 261, 000. Sodium is 140, potassium is 3.6, chloride is 107, bicarb is 21. A chest x-ray done today shows no significant change from prior. CURRENT MEDICATIONS: 1. Nebulizers. 2. Diltiazem drip. 3. Fentanyl patch. 4. Vancomycin. 5. Zosyn. ASSESSMENT: 1. Acute hypoxemic respiratory failure. 2. Bilateral pulmonary emboli. Patient continues to be on the therapeutic Lovenox. 3. Severe protein calorie malnutrition. 4. Right-sided pneumothorax, status post chest tube. Surgery has evaluated the patient. They have it on water-seal today and they would presumably take it out tomorrow. 5. Progressive worsening of right lung adenocarcinoma with extensive mediastinal involvement. Patient is being followed by Dr. Ku. 6. cachexia secondary to underlying malignancy and possible chronic obstructive pulmonary disease. 7. Active tobacco use. 8. Folic acid deficiency. We will replace. PLAN: Today, we are going to transfer Mr. Penaloza from the ICU to the regular floor. Hopefully, tomorrow surgery will remove the chest tube. If a repeat chest x-ray shows resolution of the pneumothorax, we will plan to discharge the patient home tomorrow or the day after. cc: MD HORACIO Landon
--- NOTE | 2016-10-17 12:12 | Diag Imaging Result Doc PS360 ---
CHEST-PORTABLE - 10/17/2016 1200 INDICATION: chest tube water seal TECHNIQUE: COMPARISON: [id number] FINDINGS: There is a stable right chest tube. No obvious pneumothorax. No changes from prior. IMPRESSION: No complication or change from prior. Electronically signed by Moises Schroeder 10/17/2016 12:09 PM
--- NOTE | 2016-10-17 12:29 | PROGRESS NOTE ---
DATE: 10/17/2016 SUBJECTIVE: He says he feels much better. No pain. No shortness of breath. OBJECTIVE: Vital Signs: No fevers. Temperature 99.5 degrees, pulse 77, blood pressure 92/56, O2 saturation 97% on 4 L. General: Alert, oriented. Right chest tube is to suction. There is no air leak, serous drainage, approximately 525 mL over the last 24 hours. Dressing is clean, dry, and intact. LABORATORY DATA: I reviewed his labs. White count stable at 17, hematocrit 27, ABG 7.44, 32,95, 23. Chest x-ray this morning shows stable findings. No obvious pneumothorax. Stable right lower lobe opacity. ASSESSMENT/PLAN: A 51-year-old male with lung cancer of the right lung undergoing palliative chemotherapy. She developed a pneumothorax. Chest tube in place. It appears the leak has resolved and the lungs well expanded. We will place to tube to water seal. Repeat chest x-ray today and plan on removing the tube tomorrow if he is clinically doing well. cc: Virgen Venegas MD
--- NOTE | 2016-10-17 13:13 | PROGRESS NOTE ---
DATE: 10/17/2016 ADMITTING PHYSICIAN: Dr. Louis Cardenas. ONCOLOGIST: Dr. Ku. CHIEF COMPLAINT: No new complaint. HISTORY OF PRESENT ILLNESS: Mr. Penaloza is a very pleasant, 51-year-old male with a history of non- small cell lung cancer status post cycle 5 day 1 of carboplatin and Abraxane. The patient was admitted to [facility] secondary to shortness of breath and was found to have moderate right-sided hydropneumothorax. Chest tube was placed by Dr. Woody Venegas. The patient tolerate the procedure well and is improving. Additionally, the patient had an episode of atrial flutter which resolved after Cardizem 10 mg. VITAL SIGNS: Temp is 99.5 degrees, blood pressure 92/56, heart rate 84, and respirations 19. Chest: Is with decreased breath sounds in the bases. CV: S1, S2 is heard. Regular rate and rhythm. Abdomen: Is soft, nondistended, nontender. Bowel sounds positive all quadrants. No rebound or guarding noted. Extremities: Without clubbing or cyanosis. He does have 1+ bilateral upper extremity edema and 1+ bilateral lower extremity edema. LABORATORY DATA: Hemoglobin 8.3, hematocrit 27.8. White blood cell count is 17.69, platelets are 261,000. Sodium 140, potassium 3.6, chloride 107, CO2 is 21, BUN 8, creatinine 0.5 and glucose is 98. Chest x-ray reveals stable right chest tube with no obvious pneumothorax. ASSESSMENT AND PLAN: 1. Non-small cell lung cancer status post cycle 5, day 1 of carboplatin and Abraxane currently on hold until acute illness passes. 2. Hydropneumothorax with much improvement status post chest tube placement. The patient is much less dyspneic at this time. 3. Bilateral pulmonary emboli. Currently on no Lovenox. 4. Atrial flutter resolved after Cardizem 10 mg. Currently in sinus rhythm. 5. Right lung base worsening opacity on vancomycin and Zosyn prophylactically. 6. Hypotension resolved. 7. Hypokalemia resolved status post potassium repletion. 8. Anemia. We will continue to monitor. Hemoglobin is currently 8.3. We will follow along with you and make further recommendations pending outcomes. Dictated by SOPHIA Alberts for Nikki Drew MD cc: SOPHIA Alberts MD I have seen and examined the patient and agree with above A/P. Nikki Drew MD [facility]
[2016-10-18] MEDS: CARDIZEM 100 MG/NS 100 MG/100 ML IVPB IV SCH (00:38)
[2016-10-18] MEDS: DILAUDID IV PRN ×7 (00:39→23:50)
[2016-10-18] MEDS: VANCOMYCIN 1.5 GM in NS 250 ML IV SCH (01:16)
[2016-10-18] MEDS: ZOSYN 3.375 GM/NS 3.375 GM/50 ML IVPB IV SCH ×4 (02:55→23:53)
[2016-10-18] MEDS: DUONEB (A & A) INH SCH ×6 (03:22→22:47)
[2016-10-18 04:33] LABS: BE -1.6 mmoll (-3.0-3.0); BLOOD TYPE ARTERIAL; METHB 1.4 % (0.0-1.5); O2(CT) 13.3 mL/dL (15.0-23.0); PCO2(98.6) 37 mmHg (35-45); PO2(98.6) 67 mmHg (60-100); SAMPLE BLOOD; SAO2 95.6 % (95.0-100.0); THB 10.2 g/dL (11.5-17.4)
[2016-10-18 04:34] LABS: MODALITY CANNULA
[2016-10-18] MEDS: PERCOCET-10 PO PRN (05:31)
[2016-10-18 06:34] LABS: ALLEN TEST YES; DRAW SITE R RADIAL
[2016-10-18 07:18] LABS: BASO% 0.7 % (0.0-0.8); EOS# 0.29 X1000 (0.0-0.7); EOS% 1.6 % (0.0-10.0); HEMATOCRIT 26.2 % (42.0-52.0); HEMOGLOBIN 7.9 g/dL (14.0-18.0); IMM GRAN# 0.16 X1000 (0.0-0.04); IMM GRAN% 0.9 % (0.0-0.5); LYMPH# 0.76 X1000 (1.2-3.4); LYMPH% 4.2 % (20.5-51.1); MANUAL DIFF NEEDED? YES; MCH 29.2 PG (27-31); MCHC 30.2 g/dL (33-37); MCV 96.7 FL (81-99); MONO# 0.54 X1000 (0.11-0.59); NEUT% 89.6 % (42.2-75.2); PLT 252 X1000 (130-400); RBC 2.71 XMIL (4.7-6.1)
[2016-10-18 07:27] LABS: LYMPHS 6 % (21-51); MONO 4 % (1-9)
[2016-10-18 08:04] LABS: AGAP 12; BUN 13 mg/dL (8-22); CALCIUM 7.9 mg/dL (8.8-10.2); CHLORIDE 104 mmol/L (98-107); COSMO 278; POTASSIUM 3.5 mmol/L (3.5-5.1); SODIUM 139 mmol/L (136-145); TCO2 23 mmol/L (25-35)
--- NOTE | 2016-10-18 08:17 | Diag Imaging Result Doc PS360 ---
EXAM: CHEST-1 VIEW HISTORY: chest tube TECHNIQUE: AP portable upright at 0755 COMMENT: There is a small caliber catheter in the right pleural space. There is volume loss on the right with opacification of the lower half of the right hemithorax. There is no appreciable pneumothorax. The appearance of the left hemithorax is unchanged. The volume loss on the right appears worse. IMPRESSION: Worsening atelectasis in the right middle and lower lobes. Possibility of underlying pneumonia and obstruction of the bronchus intermedius cannot be excluded. Electronically signed by Monster Hawthorne 10/18/2016 8:14 AM
--- NOTE | 2016-10-18 08:58 | PROGRESS NOTE ---
DATE: 10/18/2016 SUBJECTIVE: Feels okay. Says his breathing is better. He has still got a productive cough. Still a little winded at times. OBJECTIVE: No fevers. Heart rate has been mostly in the 90s and occasionally low 100s. He is on 4 L, saturating in the low 90s. Right chest tube dressing is intact. There is some serous drainage in the Pleur-Evac but no air leak. Per the records, it put out 225. I reviewed his labs. White count remains elevated at 18, hematocrit is 26. Creatinine is 1.2. Chest x-ray shows no pneumothorax but worsening atelectasis of the right lower lobe. ASSESSMENT AND PLAN: A 51-year-old male with severe lung cancer, locally advanced, and severe underlying lung disease with emphysema. He developed a delayed pneumothorax after port placement but this resolved with the chest tube placement. I water sealed his tube yesterday and the lung remained without pneumothorax. We will plan to remove this today if he continues to do well clinically. cc: Virgen Venegas MD
[2016-10-18] MEDS: LOVENOX SUBQ SCH ×2 (09:06→23:51)
[2016-10-18] MEDS: FOLIC ACID PO SCH ×2 (09:07→23:52)
[2016-10-18] MEDS: NICODERM PATCH TD SCH (09:07)
[2016-10-18] MEDS: MARINOL PO SCH ×2 (09:07→23:52)
[2016-10-18] MEDS: ATIVAN IV PRN ×4 (09:07→23:51)
[2016-10-18] MEDS: DURAGESIC 100 MICROGM/HR PATCH TD SCH (15:36)
[2016-10-19] MEDS: DUONEB (A & A) INH SCH ×6 (03:27→22:50)
[2016-10-19 04:17] LABS: ALLEN TEST YES; BE -0.9 mmoll (-3.0-3.0); BLOOD TYPE ARTERIAL; DRAW SITE R RADIAL; O2(CT) 10.7 mL/dL (15.0-23.0); PCO2(98.6) 36 mmHg (35-45); PO2(98.6) 72 mmHg (60-100); SAMPLE BLOOD; SAO2 97.7 % (95.0-100.0); pH(98.6) 7.42 (7.35-7.45)
[2016-10-19 04:19] LABS: MODALITY CANNULA
[2016-10-19] MEDS: DILAUDID IV PRN ×3 (04:20→20:36)
[2016-10-19] MEDS: ATIVAN IV PRN ×2 (04:20→20:36)
[2016-10-19] MEDS: ZOSYN 3.375 GM/NS 3.375 GM/50 ML IVPB IV SCH ×3 (04:21→17:40)
--- NOTE | 2016-10-19 07:42 | Diag Imaging Result Doc PS360 ---
EXAM: CHEST-1 VIEW INDICATION: chest tube TECHNIQUE: One view COMPARISON: 10/18/2016 FINDINGS: Right chest port is in stable position. The small right pleural catheter is unchanged in position. The pneumothorax, which was not visible on the recent previous study, has increased in size. It probably occupies approximately 15% of the right hemithorax. The right lower lung zone atelectasis and/or infiltrate is essentially stable. No new consolidations are appreciated. Cardiac silhouette is stable. IMPRESSION: Increasing right-sided pneumothorax. Electronically signed by Chacho Mcgarry 10/19/2016 7:40 AM
[2016-10-19 09:39] LABS: BASO% 0.8 % (0.0-0.8); EOS# 0.42 X1000 (0.0-0.7); EOS% 2.2 % (0.0-10.0); HEMOGLOBIN 8.8 g/dL (14.0-18.0); IMM GRAN# 0.08 X1000 (0.0-0.04); IMM GRAN% 0.4 % (0.0-0.5); LYMPH% 4.8 % (20.5-51.1); MANUAL DIFF NEEDED? YES; MCH 29.3 PG (27-31); MCHC 30.3 g/dL (33-37); MCV 96.7 FL (81-99); MONO# 0.74 X1000 (0.11-0.59); MONO% 3.9 % (1.7-9.3); MPV 9.7 FL (7.4-10.4); NEUT% 87.9 % (42.2-75.2); PLT 329 X1000 (130-400)
[2016-10-19 09:52] LABS: EOS 2 % (1-10); LYMPHS 6 % (21-51); MONO 4 % (1-9)
[2016-10-19 10:34] LABS: POTASSIUM 3.5 mmol/L (3.5-5.1)
[2016-10-19] MEDS: FOLIC ACID PO SCH ×2 (11:30→23:19)
[2016-10-19] MEDS: LOVENOX SUBQ SCH ×2 (11:30→23:19)
[2016-10-19] MEDS: MARINOL PO SCH ×2 (11:31→23:19)
[2016-10-19] MEDS: NICODERM PATCH TD SCH (11:31)
--- NOTE | 2016-10-19 15:24 | PROGRESS NOTE ---
DATE: 10/19/2016 ADMITTING PHYSICIAN: Dr. Hamlet Cardenas. ONCOLOGIST: Dr. Ku. CHIEF COMPLAINT: Shortness of breath. SUBJECTIVE: Mr. Penaloza is a very pleasant, 51-year-old male with a history of non-small cell lung cancer who was admitted secondary to acute shortness of breath. Upon presentation to [facility] the patient was found to have a hydropneumothorax and chest tube was subsequently placed. The patient is significantly deconditioned at this time secondary to non-small cell lung cancer and ongoing chemotherapy of carboplatin and Abraxane. Today chest x-ray reveals worsening of right pneumothorax. OBJECTIVE: General: Mr. Penaloza is lying supine in bed. He is slightly dyspneic. He is in no immediate distress. Vital signs: Temperature 98.9 degrees, blood pressure 94/ 46, heart rate 97, respirations 17, O2 saturation 96% on nasal cannula O2 at 3 L. HEENT: Normocephalic, atraumatic. Mucous membranes are pale and somewhat dry. Sclerae anicteric. Extraocular movements intact. Neck: Supple. Lungs: Clear to auscultation bilaterally with no breath sounds in the right lung base. CV: S1, S2 is heard without murmur, rub, or gallop. Abdomen: Soft , nondistended, nontender. Bowel sounds positive in all quadrants. No rebound or guarding noted. Extremities: Without clubbing or cyanosis. He does have 1+ bilateral lower extremity edema. Dermatologic: No rashes, bruises, or lesions. Neurologic: The patient is awake, alert, and oriented x3. He has no focal motor deficit. LABORATORY DATA: Hemoglobin is 7.9, hematocrit is 26.2 at midnight on 2016. ASSESSMENT AND PLAN: 1. Non-small cell lung cancer status post cycle 5 day 1 of carboplatin and Abraxane. Currently being held secondary to the patient's acute illness. 2. Hydropneumothorax with chest tube in place. Pneumothorax persists with worsening on today's chest x-ray. Dr. Woody Venegas is currently following the patient. 3. Bilateral pulmonary emboli. The patient is currently on Lovenox. Would continue to monitor. 4. Atrial flutter. Resolved status post Cardizem 10 mg. 5. Right lung base worsening opacity with some questionable element of pneumonia. The patient remains on vancomycin and Zosyn. 6. We will follow along with you and make further recommendations pending outcomes. Dictated by SOPHIA Alberts for Nikki Drew MD cc: SOPHIA Alberts MD I have seen and examined the patient and agree with the above A/P. Nikki Drew MD [facility]
--- NOTE | 2016-10-19 16:20 | Extremity Venous Study ---
PROCEDURE NAME: Venous U/S Bilateral Legs - 10/15/2016 BILATERAL LOWER EXTREMITY VENOUS ULTRASOUND: PRIVATE INVESTIGATOR SURVEILLANCE: [place]. INDICATION: PE with lower extremity edema. FINDINGS: Bilateral deep and superficial veins visualized in bilateral lower extremities. There is extensive deep venous thrombosis seen in the right common femoral vein, right deep femoral, superficial femoral, popliteal, gastroc, posterior tibial and peroneal veins. Similarly on the left, there is DVT noted within the common femoral vein, superficial femoral vein, popliteal, gastroc, posterior tibial and peroneal veins. The veins all lack of compressibility with visualized intraluminal thrombus and diminished or absence of flow in most of these locations. 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 SUMMARY: Extensive deep and superficial venous thrombosis in bilateral lower extremities. cc: MD Tevin Fitch MD
--- NOTE | 2016-10-19 16:21 | PROGRESS NOTE ---
DATE: 10/19/2016 SUBJECTIVE: He says he feels okay although he generally looks a little weaker today. He is breathing at his baseline without any accessory muscle. He is not tachypneic. OBJECTIVE: No fevers overnight. Heart rate has been in the 90s. Blood pressure is high 90s to low 100s systolic. Oxygen saturation 96% on 3 L nasal cannula. General: He is alert, conversant, in no acute distress but just generally appears quite chronically ill. No accessory muscle being used but he does have a coarse productive cough. Cardiovascular: Normal rate, regular rhythm. Right chest tube was to water seal this morning with no air leak and serous fluid in the canister. It does title well with inspiration. LABORATORY DATA: White count is up to 18, hematocrit 29, creatinine is up to 2 which is significantly above his baseline. Glucose is 83, ABG 7.42, 36, 72, 24. His chest x-ray shows persistent consolidation in the right lower lung. He has some increase in pneumothorax of the right basilar lung and some associated effusion that has not significantly changed from previous. ASSESSMENT AND PLAN: This is a 51-year-old male with end-stage lung cancer. He had a port placed and developed approximately a week postop a pneumothorax on the right side. He is asymptomatic. He has had his chest tube that has resolved it, however, with 48 hours of water seal he developed reaccumulation of his pneumothorax. I do not see a leak on his Pleur-evac. I placed it back to - 30 mm of suction. We will repeat the chest x-ray tomorrow. In the mean time, he has got significant other medical issues. He has being treated with pneumonia. Creatinine is now 2, and he is being followed for these. He also has got extensive bilateral PEs and extensive DVTs noted in his bilateral lower extremities. I suspect his pneumothorax was related to a ruptured bleb from his positive pressure during his procedure and it has been difficult to resolve given the underlying lung disease and the consolidation and the lack of expansion in the lower lung. This is going to be a difficult problem to get to heal, and I think he is progressing towards palliative measures but, hopefully, we can get this tube out over the weekend. Dr. Burgess is following. I have discussed the patient with him and I am accessible via phone. cc: Virgen Venegas MD
--- NOTE | 2016-10-19 16:39 | PROGRESS NOTE ---
DATE: 10/19/2016 SUBJECTIVE: Today Mr. Penaloza referred to be doing fine. He was actually taking his lunch at the time of the encounter. The was at the bedside with him at the time of the encounter. OBJECTIVELY: Vitals: Blood pressure 94/46, pulse of 97, respirations 17, temperature 98.7 degrees. General: Mr. Penaloza is a 51-year-old male. He was in bed. Not in any distress. HEENT: Mucosa is pink and moist. Anicteric. Acyanotic. Neck: Supple. He looks emaciated with a BMI of 15.4. Chest: Air entry is bilaterally reduced, more so to the right posterior lung field. There are some crepitations bilaterally. Cardiovascular : Regular rate and rhythm. Abdomen: Soft, nontender. Extremities: No pedal edema. 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 LABORATORY DATA: WBC is 18.93, hemoglobin is 8.8, platelet count of 329,000. Chemistry is reviewed, unremarkable except for creatinine of 2.0. Microbiology. Sputum and blood cultures have all been negative. CURRENT MEDICATIONS: Include vancomycin and Zosyn. IMAGING: Recent chest x-ray shows increase in right-sided pneumothorax. ASSESSMENT: 1. Acute hypoxemic respiratory failure. 2. Bilateral pulmonary emboli. 3. Severe protein calorie malnutrition. 4. Right-sided pneumothorax status post chest tube. Subsequent chest x-ray actually reveals worsening of the pneumothorax. 5. Progressive worsening of right lung adenocarcinoma with extensive mediastinal involvement. 6. Cachexia secondary to underlying malignancy and possible chronic obstructive pulmonary disease. 7. Active tobacco use. 8. Folic acid deficiency. 9. Acute renal failure. Patient's creatinine went up to 2.0 today. We will therefore go ahead and discontinue the vancomycin and use linezolid instead. will repeat BMP for tomorrow and follow up on the renal function. cc: MD HORACIO Landon
[2016-10-19] MEDS: ZOSYN 2.25 GM/NS 2.25 GM/50 ML IVPB IV SCH ×2 (17:41→23:18)
[2016-10-19] MEDS: NS 1,000 ML IV SCH (17:42)
[2016-10-19] MEDS: PERCOCET-10 PO PRN (23:18)
[2016-10-19] MEDS: ZYVOX PO SCH (23:19)
[2016-10-20] MEDS: ATIVAN IV PRN ×4 (02:59→22:55)
[2016-10-20] MEDS: DILAUDID IV PRN ×7 (02:59→22:57)
[2016-10-20] MEDS: DUONEB (A & A) INH SCH ×6 (03:33→22:47)
[2016-10-20] MEDS: NS 1,000 ML IV SCH (05:39)
[2016-10-20] MEDS: ZOSYN 2.25 GM/NS 2.25 GM/50 ML IVPB IV SCH ×3 (05:39→17:33)
[2016-10-20 06:50] LABS: BASO% 0.5 % (0.0-0.8); EOS# 0.34 X1000 (0.0-0.7); EOS% 1.8 % (0.0-10.0); HEMATOCRIT 25.3 % (42.0-52.0); HEMOGLOBIN 7.6 g/dL (14.0-18.0); IMM GRAN% 0.5 % (0.0-0.5); LYMPH# 0.72 X1000 (1.2-3.4); LYMPH% 3.8 % (20.5-51.1); MANUAL DIFF NEEDED? YES; MCH 29.1 PG (27-31); MCV 96.9 FL (81-99); MONO# 0.74 X1000 (0.11-0.59); MONO% 3.9 % (1.7-9.3); MPV 9.6 FL (7.4-10.4); NEUT% 89.5 % (42.2-75.2); PLT 355 X1000 (130-400); RBC 2.61 XMIL (4.7-6.1)
[2016-10-20 07:01] LABS: CALCIUM 7.8 mg/dL (8.8-10.2); POTASSIUM 2.9 mmol/L (3.5-5.1)
[2016-10-20 07:38] LABS: LYMPHS 4 % (21-51); MONO 3 % (1-9)
--- NOTE | 2016-10-20 08:18 | PROGRESS NOTE ---
DATE: 10/20/2016 SUBJECTIVE: The patient is doing okay. No major issues. OBJECTIVE: Vital Signs: The patient is currently afebrile. His vital signs are stable. His O2 saturation currently is 93%. General: No acute distress. Cardiovascular: Regular rate and rhythm. Lungs: Some coarse sounds noted. Right chest tube in place. No air leak, but it is connected to suction. LABORATORY: White blood cell count is 18, hematocrit 25, platelet count 355,000. The remainder of labs reviewed. His potassium is 2.9. Creatinine is 2.2. ASSESSMENT AND PLAN: A 51-year-old male with end-stage lung cancer with a pneumothorax on the right side. He did develop a reaccumulation of his pneumothorax after his tube was placed to water seal. This was placed back to suction. At this time, we will keep it to suction for the next 24 hours and repeat a chest x-ray in the morning. cc: Chente Burgess MD
[2016-10-20] MEDS: ZYVOX PO SCH ×2 (08:29→22:56)
[2016-10-20] MEDS: MARINOL PO SCH ×2 (08:29→22:56)
[2016-10-20] MEDS: FOLIC ACID PO SCH ×2 (08:29→22:56)
[2016-10-20] MEDS: LOVENOX SUBQ SCH ×2 (08:29→22:55)
[2016-10-20] MEDS: NICODERM PATCH TD SCH (08:30)
[2016-10-20] MEDS ORDERED: MAGNESIUM SULFATE 2 GM/S.W.I. 2 GM/50 ML IVPB IV ONE (09:11)
--- NOTE | 2016-10-20 10:51 | Diag Imaging Result Doc PS360 ---
EXAM: US RENAL 2 (RETROPER) COMPLETE HISTORY: ursula/arf TECHNIQUE: COMPARISON: 05/28/2016 FINDINGS: The right kidney measures 15.7 x 7.9 x 5.9 cm. Normal cortical thickness although there is increased renal echotexture. No stone or hydronephrosis. There is a small cyst inferiorly. The left kidney measures 15.2 x 6.0 x 6.2 cm. Mild increased renal echotexture. There is a tiny cyst superiorly. No stone or hydronephrosis. The urinary bladder is distended and appears normal. IMPRESSION: Interval development of increased renal echotexture which can be seen with medical renal disease. Electronically signed by Andre Redd 10/20/2016 10:49 AM
[2016-10-20] MEDS: D5 1/2 NS 1,000 ML IV SCH ×2 (11:03→22:57)
[2016-10-20] MEDS: POTASSIUM CHLORIDE 20 MEQ/SWI 20 MEQ/100 ML IVPB IV SCH ×2 (11:04→12:28)
[2016-10-20 12:15] LABS: URINE SOURCE CATH
[2016-10-20 12:22] LABS: BILIRUBIN URINE NEGATIVE (NEGATIVE); BLOOD URINE NEGATIVE (NEGATIVE); COLOR YELLOW; GLUCOSE URINE NEGATIVE (NEGATIVE); LEUKOCYTES URINE NEGATIVE (NEGATIVE); NITRITE URINE NEGATIVE (NEGATIVE); PH URINE 5.5; PROTEIN URINE 30 mg/dL (NEGATIVE); SP GRAVITY URINE 1.012; TURBIDITY URINE CLEAR (CLEAR); UROBILINOGEN URINE NORMAL (NORMAL)
[2016-10-20 12:23] LABS: URINE MICRO REVIEW NEEDED? YES
[2016-10-20 12:25] LABS: UR EPITHELIAL CELLS <10 /HPF (<10); URINE BACTERIA NEGATIVE /HPF; URINE RBC <10 /HPF (<10); URINE WBC <10 /HPF (<10)
[2016-10-20 12:38] LABS: UR CREAT RANDOM 56.4 mg/dL (14-26)
--- NOTE | 2016-10-20 14:39 | PROGRESS NOTE ---
DATE: 10/20/2016 Today Mr. Penaloza refers to be doing all right. Is requesting a little bit of more pain medications. OBJECTIVE: Vital signs: Blood pressure is 102/60, pulse of 101, respirations 18, temperature is 98.1 degrees. General: Mr. Penaloza is a 51-year-old, cachectic, chronically ill -looking male. He is in bed. He did not seem to be in any distress. HEENT: Mucosa is pink. Anicteric. Acyanotic. Neck: Supple. Chest: Air entry is bilaterally reduced, more so on the right posterior lung field. Cardiovascular: Regular rate and rhythm. Abdomen: Soft. Extremities: About 1+ pedal edema. 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 LABORATORY DATA: WBC is 18.88, hemoglobin is 7.6, platelet count of 355,000. Chemistry is also reviewed. Sodium is 143, potassium is 2.9, chloride is 108, bicarb is 22, and the creatinine went up to 2.2. The urinalysis so far has shown a FENa of 1.9 which is consistent with intrarenal disease likely from contrast versus vancomycin. Vancomycin level yesterday was 34.8. On the it was 49.5, which was extremely high. ASSESSMENT: 1. Acute hypoxemic respiratory failure secondary to bilateral pulmonary emboli, pneumothorax and possible underlying pneumonia. 2. Right-sided pneumothorax status post chest tube. Chest x-ray continues to show some consolidation in the right lower lobe and pneumothorax. We will repeat it tomorrow to see what is the progress. 3. Progressive worsening right lung adenocarcinoma with extensive mediastinal involvement. 4. Cachexia secondary to underlying malignancy and possible COPD. 5. Active tobacco use. 6. Folic acid deficiency. 7. Severe protein calorie malnutrition. 8. Bilateral pulmonary emboli. Patient is on Lovenox therapeutic dose. 9. Acute renal failure. Creatinine has gone up to 2.1. I think the etiology could be multifactorial. FENa is 1.9 which is consistent with an intrarenal disease. A renal ultrasound is negative for any acute obstructive uropathy. However there is interval development of increased renal echotexture which can be seen with medical renal disease. In any case, I think the etiologies could be a combination of vancomycin induced nephropathy versus contrast induced nephropathy since patient got a CTA done on 2016. For now, we are going to avoid any nephrotoxic drugs. We will renally dose the Zosyn. We have the patient on Zyvox. Will discontinue the vancomycin and will continue with the gentle hydration and observe and repeat his numbers for tomorrow. cc: Igor Barrientos MD MTDD
--- NOTE | 2016-10-20 15:47 | CONSULTATION ---
DATE OF CONSULTATION: 10/20/2016 REASON FOR ADMISSION: Progressive lung cancer, extensive mediastinal disease, bilateral pulmonary emboli, hypoxic respiratory failure, spontaneous pneumothorax, cardiac dysrhythmia. REASON FOR CONSULTATION: Acute kidney injury. HISTORY OF PRESENT ILLNESS: This is a 51-year-old gentleman with severe COPD diagnosed with adenocarcinoma involving the right lower lobe in May of this year. Patient underwent chemotherapy. He developed continuous shortness of breath. He came to the Emergency Room on the date of admission, was found to have a moderate right-sided hydro pneumothorax. He had a chest tube placed. He had further complications with atrial fibrillation requiring Cardizem. His chemotherapy of carboplatin and Abraxane have been held secondary to his current status. He had been placed on vancomycin and Zosyn secondary to pneumonia. He did undergo a pulmonary arteriogram with IV contrast on the . He did not have any change in his renal function immediately after that. His random vancomycin level noted yesterday was 34.8. His pneumothorax has worsened. He has had to continue with a chest tube. And over the course of the last 3 days his creatinine has risen from 0.5 to 1.22, and now 2.2. We have been asked to see him for his acute kidney injury. The patient underwent a renal ultrasound today which shows no hydronephrosis but some decreased cortical thinning suggestive of some chronic renal disease even though he has normal creatinine. His urine studies are pending. PAST MEDICAL HISTORY: COPD, inoperable adenocarcinoma of the lung. PAST SURGICAL HISTORY: He has had a port placement to the right IJ. He had a chest tube placed to the right side during this hospitalization. ALLERGIES: No known drug allergies. HOME MEDICATIONS: Percocet and fentanyl. He had been on cystine and carboplatin. CURRENT MEDICATIONS: As of today include DuoNeb D5 half-normal saline, Marinol , Lovenox, Duragesic, folic acid, Dilaudid, Zyvox, Ativan, NicoDerm patch, Zofran, Percocet 10, Zosyn 2.25, and potassium chloride. FAMILY HISTORY: Noncontributory. SOCIAL HISTORY: He continued to smoke. Continues to drink. No illicit drug use. He has family. REVIEW OF SYSTEMS: Shortness of breath, dyspnea, orthopnea, PND. No change in bowel or bladder. No nausea, no vomiting. No dizziness, no syncopal episodes. See above history for pertinent positives. PHYSICAL EXAMINATION: Vital Signs: Temperature 98.1 degrees, pulse 97, respiratory rate 23, blood pressure 97/59. Intake 480 mL. Output 400 mL. General: This is a 51- year-old, cachectic, extremely thin gentleman sitting up in bed. He is awake and alert, able to give a history. HEENT: Normocephalic atraumatic. LADONNA, conjunctivae pale. His oral mucosa is moist. His dentition is poor. Neck: Supple. Trachea midline. He has a right IJ port noted. Cardiovascular: Regular rate and rhythm. He has some increased PMI. No murmur. Pulmonary: Decreased breath sounds, wheezes. Chest tube noted to the right. On O2 supplementation via nasal cannula. Abdomen: Flat, soft. Positive bowel sounds. : He is voiding. Extremities: Wasted extremities. No clubbing or cyanosis. Is moving extremities. Integumentary: Skin is pale, warm and dry. Neuro: Grossly nonfocal otherwise. LAB DATA: WBC of 18.8, hemoglobin 7.6, hematocrit 25.3, and platelet count of 355,000. Sodium 143, potassium 2.9, chloride 108, CO2 22, BUN 23, creatinine 2.2 (2.0, 1.2, 0.5) . IMAGING: He had an ultrasound today that showed interval development of increased echotexture, likely chronic renal disease. Chest x-ray yesterday indicated increasing right- sided pneumothorax, atelectasis. Infiltrates stable, no new consolidation. ASSESSMENT AND PLAN: 1. Acute kidney injury, likely acute tubular necrosis. He has been on vancomycin. He has received IV contrast although that was several days ago. He has IV fluids infusing now. We are awaiting urine studies. He has no indication for intervention in the form of dialysis at this time. Unclear if this would be an appropriate treatment to offer if it were indicated. The patient is extremely wasted and although his creatinine is 2.2, it is quite likely that his renal function is worse than estimated. He really has no muscle mass at all. We will continue fluids, check labs in the morning, awaiting urine studies. Differential in this patient may be his is emboli. There were no stigmata noted to the feet, however. 2. Cory pneumothorax with chest tube, followed by Dr. Venegas. 3. New non-small cell lung cancer with inoperable adenocarcinoma. Followed by primary and Dr. Viki Scott. 4. Atrial flutter. He has been on Cardizem, followed by primary. 5. Bilateral pulmonary emboli. On Lovenox per primary. 6. Electrolytes his potassium is slightly low. He already has repletion ordered by primary. Thank you for the consult. Dictated by SOPHIA Díaz for Abdiaziz Matthews MD cc: Abdiaziz Matthews MD [facility]
[2016-10-21] MEDS: PERCOCET-10 PO PRN (01:53)
[2016-10-21] MEDS: ZOSYN 2.25 GM/NS 2.25 GM/50 ML IVPB IV SCH ×4 (01:54→18:07)
[2016-10-21] MEDS: DILAUDID IV PRN ×6 (02:57→23:04)
[2016-10-21] MEDS: ATIVAN IV PRN ×6 (02:58→23:04)
[2016-10-21] MEDS: DUONEB (A & A) INH SCH ×6 (03:36→23:22)
[2016-10-21] MEDS: D5 1/2 NS 1,000 ML IV SCH ×3 (06:50→20:38)
--- NOTE | 2016-10-21 07:15 | Diag Imaging Result Doc PS360 ---
EXAM: CHEST-1 VIEW HISTORY: lung ca TECHNIQUE: Portable upright AP COMPARISON: 10/19/2016 FINDINGS: No change in the right jugular portacatheter. There is a small right-sided chest tube. This may have been pulled back slightly. The appearance of the right chest is fairly similar to that of the prior exam. Questionable developing infiltrate in the mid and lower left lung. No left-sided pleural effusion. IMPRESSION: 1.There may be slight improvement in the right hemithorax 2.Questionable small infiltrates developing in the left lung. Electronically signed by Andre Redd 10/21/2016 7:12 AM
[2016-10-21 08:11] LABS: MANUAL DIFF NEEDED? NO
[2016-10-21 08:41] LABS: AGAP 13; ALBUMIN 1.9 g/dL (3.5-5.0); ALKALINE PHOSPHATASE 90 U/L (32-122); BASO% 0.6 % (0.0-0.8); BUN 21 mg/dL (8-22); CHLORIDE 107 mmol/L (98-107); COSMO 283; EOS# 0.45 X1000 (0.0-0.7); EOS% 2.9 % (0.0-10.0); GOT 6 U/L (10-34); GPT < 5 U/L (10-44); HEMATOCRIT 26.8 % (42.0-52.0); HEMOGLOBIN 8.1 g/dL (14.0-18.0); IMM GRAN# 0.07 X1000 (0.0-0.04); IMM GRAN% 0.4 % (0.0-0.5); LYMPH# 0.86 X1000 (1.2-3.4); LYMPH% 5.5 % (20.5-51.1); MCH 29.2 PG (27-31); MCHC 30.2 g/dL (33-37); MCV 96.8 FL (81-99); MONO% 5.7 % (1.7-9.3); MPV 9.7 FL (7.4-10.4); NEUT% 84.9 % (42.2-75.2); PLT 374 X1000 (130-400); POTASSIUM 3.4 mmol/L (3.5-5.1); RBC 2.77 XMIL (4.7-6.1); SODIUM 140 mmol/L (136-145); TCO2 20 mmol/L (25-35); TOTAL BILIRUBIN 0.15 mg/dL (0.20-1.00); TOTAL PROTEIN 4.5 g/dL (6.3-8.3)
--- NOTE | 2016-10-21 08:51 | PROGRESS NOTE ---
DATE: 10/21/2016 SUBJECTIVE: Patient doing okay. OBJECTIVE: Vital Signs: Patient is currently afebrile. His vital signs are stable. General Examination: No acute distress. Cardiovascular: Regular rate and rhythm. Lungs: Some coarse sounds noted. Right chest tube in place. No air leak. Laboratory Data: Chest x-ray reviewed. No obvious new pneumothorax. ASSESSMENT AND PLAN: A 51-year-old, male with end-stage lung cancer with pneumothorax on the right side. At this time, I took his chest tube off of suction and placed it to water seal. We will repeat a chest x-ray in 24 hours and monitor how he is doing. Dr. Venegas to return tomorrow. cc: Chente Burgess MD
[2016-10-21] MEDS: NICODERM PATCH TD SCH (09:04)
[2016-10-21] MEDS: FOLIC ACID PO SCH ×2 (09:05→23:03)
[2016-10-21] MEDS: LOVENOX SUBQ SCH ×3 (09:05→23:10)
[2016-10-21] MEDS: ZYVOX PO SCH ×2 (09:05→23:03)
[2016-10-21] MEDS: MARINOL PO SCH ×2 (09:05→23:03)
[2016-10-21] MEDS ORDERED: ALBUMIN 25% IV ONE (12:16)
[2016-10-21] MEDS: DURAGESIC 100 MICROGM/HR PATCH TD SCH (13:37)
--- NOTE | 2016-10-21 14:31 | PROGRESS NOTE ---
DATE: 10/21/2016 SUBJECTIVE: Patient resting in bed. He awakens to tactile stimuli. He drifts off back to sleep rather rapidly. OBJECTIVE: Vital Signs: Temperature 98.4 degrees, pulse is 90, respiratory rate 23, blood pressure 103/67. Intake 1.4 L. Output 2.4 L. 1.4 L of this was urine output. The remainder was from his Pleur-evac. General: This is an acutely chronically ill-appearing gentleman resting in bed. He is somewhat lethargic today. He does arouse, but goes back to sleep rapidly. HEENT: Normocephalic, atraumatic. Conjunctivae pink. Oral mucosa dry. Neck: Supple. Trachea midline. No JVD. Cardiovascular: Regular rate and rhythm with an increased BMI. No murmur appreciated. Pulmonary: Decreased breath sounds. Chest tube continued noted off to the right. No wheeze morning. O2 via nasal cannula. Abdomen: Soft, flat. Positive bowel sounds. : He has a Ailcea catheter now. There is yellow urine. Extremities: Wasted. No clubbing or cyanosis. No edema. Integumentary: Skin is pale, warm and dry. Neurologic: Grossly nonfocal. LABORATORY DATA: WBC of 15.7, hemoglobin 8.1. Sodium 140, potassium 3.4, CO2 20, BUN 21, creatinine 2.2. ASSESSMENT AND PLAN: 1. Acute kidney injury, likely acute tubular necrosis. His venous score was a little bit elevated at 1.9. He continues on intravenous fluids and urine output has been excellent. We will continue this. He has no indication for intervention. Check laboratory in the morning. 2. Electrolytes, acid-base balance. These are in target. 3. Hydropneumothorax. A chest tube, followed by primary surgery. 4. End-stage small lung cell cancer inoperable, followed by primary and Oncology. 5. Fluid volume. He is not overloaded. 6. Blood pressure control. Dictated by SOPHIA Díaz for Abdiaziz Matthews MD cc: Abdiaziz Matthews MD
--- NOTE | 2016-10-21 15:26 | PROGRESS NOTE ---
DATE: 10/21/2016 SUBJECTIVE: Today Mr. Penaloza refers to be doing okay, just that he has been hurting all over. OBJECTIVE: Vital signs: Blood pressure is 103/67, pulse of 90, respirations 21 , temperature 98.4 degrees. General: Mr. Penaloza is a 51-year-old male. He is in bed, in no distress. He is a very malnourished and cachectic, chronically ill looking gentlemen. HEENT : Mucosa is pink and moist. Anicteric. Acyanotic. Neck: Supple. Chest: Air entry is bilaterally reduced. There are some crepitations to both posterior lung bingham, more so on the right. Cardiovascular: Regular rate and rhythm. Abdomen: Soft. Extremities: There is 1+ pedal edema. LOGISTICS SYSTEM ENGINEER: Patient is awake and alert and oriented. LABORATORY DATA: WBC is down to 15.74, hemoglobin is 8.1, platelet count of 274 ,000. Chemistry: Sodium is 140, potassium is 3.4, chloride is 107, bicarb is 20, creatinine is 2.2, did not change that much. ASSESSMENT: 1. Acute hypoxemic respiratory failure secondary to bilateral pulmonary embolism , pneumothorax, and pneumonia. 2. Right-sided pneumothorax status post chest tube. The tube has been placed on water-seal today. Will follow further recommendations from surgery. 3. Progressively worsening right lung adenocarcinoma with extensive mediastinal involvement, noted. 4. Cachexia secondary to underlying malignancy and possible chronic obstructive pulmonary disease. 5. Active tobacco use. 6. Folic acid deficiency. We will continue to replace. 7. Severe protein calorie malnutrition. Patient is getting Clinimix with lipid infusion. 8. Bilateral pulmonary emboli. The patient is on Lovenox therapeutic dose. 9. Acute renal failure. Creatinine is 2.2. Has no changed from yesterday. We think this is a combination of vancomycin-induced nephropathy as well as contrast-induced. Patient is making good urine output. We will continue to track this. Nephrology is also following. 10. Hypoalbuminemia, likely secondary to the underlying cachexia and malnutrition. I think this is also driving some of his lower extremity edema. We will give him a dose of albumin today to help improve the oncotic pressure. Patient has been seen by surgery, nephrology, and hematology/oncology. cc: Igor Barrientos [facility]
[2016-10-22] MEDS: ZOSYN 2.25 GM/NS 2.25 GM/50 ML IVPB IV SCH ×4 (00:49→18:42)
[2016-10-22] MEDS: DUONEB (A & A) INH SCH ×6 (03:38→23:15)
[2016-10-22] MEDS: D5 1/2 NS 1,000 ML IV SCH (05:16)
[2016-10-22] MEDS: DILAUDID IV PRN ×4 (05:24→20:17)
[2016-10-22] MEDS: ATIVAN IV PRN (05:24)
[2016-10-22 06:36] LABS: BASO% 0.9 % (0.0-0.8); EOS# 0.43 X1000 (0.0-0.7); EOS% 2.4 % (0.0-10.0); HEMATOCRIT 25.7 % (42.0-52.0); HEMOGLOBIN 7.8 g/dL (14.0-18.0); IMM GRAN# 0.04 X1000 (0.0-0.04); IMM GRAN% 0.2 % (0.0-0.5); LYMPH# 1.02 X1000 (1.2-3.4); LYMPH% 5.8 % (20.5-51.1); MANUAL DIFF NEEDED? YES; MCHC 30.4 g/dL (33-37); MCV 95.5 FL (81-99); MONO# 1.15 X1000 (0.11-0.59); MONO% 6.5 % (1.7-9.3); MPV 9.6 FL (7.4-10.4); NEUT% 84.2 % (42.2-75.2); PLT 268 X1000 (130-400); RBC 2.69 XMIL (4.7-6.1)
[2016-10-22 07:06] LABS: AGAP 13; ALBUMIN 2.2 g/dL (3.5-5.0); ALKALINE PHOSPHATASE 77 U/L (32-122); BUN 19 mg/dL (8-22); CALCIUM 7.9 mg/dL (8.8-10.2); CHLORIDE 106 mmol/L (98-107); COSMO 282; GOT 6 U/L (10-34); GPT < 5 U/L (10-44); POTASSIUM 3.1 mmol/L (3.5-5.1); SODIUM 140 mmol/L (136-145); TCO2 21 mmol/L (25-35); TOTAL BILIRUBIN 0.27 mg/dL (0.20-1.00); TOTAL PROTEIN 4.9 g/dL (6.3-8.3)
--- NOTE | 2016-10-22 07:14 | Diag Imaging Result Doc PS360 ---
CHEST-PORTABLE - 10/22/2016 INDICATION: Follow up pneumothorax TECHNIQUE: COMPARISON: 10/21/2016 FINDINGS: Stable right chest tube. There is a very small right upper lobe pneumothorax measuring up to 8 mm. Similar to prior exams. Stable dense consolidation at the right lung base. Stable ill-defined infiltrate throughout the left lung suggesting edema. No mediastinal shift. IMPRESSION: No change from prior. Electronically signed by Moises Schroeder 10/22/2016 7:12 AM
[2016-10-22 07:21] LABS: LYMPHS 8 % (21-51); MONO 6 % (1-9)
[2016-10-22] MEDS: LOVENOX SUBQ SCH ×2 (09:36→20:17)
[2016-10-22] MEDS: NICODERM PATCH TD SCH (09:36)
[2016-10-22] MEDS: MARINOL PO SCH ×2 (09:37→20:19)
[2016-10-22] MEDS: FOLIC ACID PO SCH ×2 (09:37→20:19)
[2016-10-22] MEDS: ZYVOX PO SCH ×2 (09:43→20:19)
--- NOTE | 2016-10-22 10:59 | PROGRESS NOTE ---
DATE: 10/22/2016 SUBJECTIVE: Patient is resting in bed, asleep. He will arouse to verbal and tactile stimulation but does drift off back to sleep rather quickly. OBJECTIVE: Vital Signs: Temperature 99.2 degrees, pulse 83, respiratory rate 14, blood pressure 94/55. Intake 1.4 L. Output 1.8 L. General: This is a cachectic, acutely/ chronically ill- appearing, middle-aged gentleman resting in bed. He is in no acute distress. HEENT: Normocephalic and atraumatic. Temporal wasting noted. Oral mucosa is dry. Neck: Supple. No JVD. Cardiovascular: Regular rate and rhythm. Pulmonary: noted. Chest tube noted to the right. He is on O2 supplementation via nasal cannula. Abdomen: Flat with positive bowel sounds. : He has a Alicea catheter with pale yellow urine. Extremities: Wasted. Moving extremities. No clubbing, no cyanosis. Integumentary: Skin is pale, warm, and dry. Lab Data: WBC of 17.6, hemoglobin 7.8. Sodium 140, potassium 3.1, CO2 21, BUN 19, creatinine 2.1, albumin 2.2, and calcium 7.9. ASSESSMENT AND PLAN: 1. Acute kidney injury/acute tubular necrosis. His renal function is unchanged but his urine output has been picking up. He is not a candidate for HD. Continue to monitor. 2. Electrolytes, acid-base balance. These are acceptable. Followed by primary. 3. Hydropneumothorax. Followed by primary and surgery. 4. End-stage small-cell lung cancer, inoperable. Followed by primary and oncology. 5. Fluid volume. He is in negative territory overnight. 6. Blood pressure controlled. Seen, data reviewed, discussed with Danielle Angelo on 10/22/16. I agree with the above assessment and plan of care. rg Dictated by SOPHIA Díaz for Abdiaziz Matthews MD cc: Abdiaziz Matthews MD [facility]
[2016-10-22] MEDS: ALBUMIN 25% IV SCH (17:12)
--- NOTE | 2016-10-22 19:22 | PROGRESS NOTE ---
DATE: 10/22/2016 SUBJECTIVE: Today Mr. Penaloza referred to be doing okay. I understand surgery went to check on the chest tube and there was a gush of air just coming through it so it had to be put under suction again. OBJECTIVE: Vitals: Blood pressure 91/54, pulse of 87, respirations 15, temperature 98.5 degrees, patient is saturating 92% on room air. General: Mr. Penaloza is a 51-year-old male. He is in bed. He looks chronically ill, malnourished and cachectic. HEENT: Mucosa is pink and moist. Anicteric. Acyanotic. There is temporal wasting. Chest: Air entry is bilaterally reduced. There is diffuse bilateral crepitations more so on the right than the left. Cardiovascular: Regular rate and rhythm. No murmurs. Abdomen: Soft, nontender. Extremities: About 1 to 2+ pedal edema. MANAGER OF COMPENSATION: Patient is awake and alert. LABORATORY DATA: WBC is 17.62, hemoglobin is 7.8, platelet count of 268,000. Chemistry is reviewed. Sodium is 140, potassium is 3.1, chloride is 106, bicarb is 21, creatinine is 2.1. ASSESSMENT: 1. Acute hypoxemic respiratory failure secondary to 1 bilateral pulmonary embolism, 2 pneumothorax and 3 pneumonia. Patient is needing less oxygen now. 2. Right side pneumothorax status post chest tube. I understand patient continues to have leakage of air so he is currently on suction and is back on suctioning again. Surgery is following. 3. Progressively worsening right lung adenocarcinoma with extensive mediastinal involvement, Hematology/Oncology is on board. 4. Cachexia secondary to underlying malignancy. 5. Active tobacco use. 6. Folic acid deficiency, will continue to replace. 7. Severe protein calorie malnutrition. Patient is getting supplements. 8. Bilateral pulmonary emboli. Patient is on therapeutic Lovenox. 9. Acute renal failure suspected to be acute tubular necrosis secondary to vancomycin induced versus contrast induced nephropathy. Patient is making adequate urine output and creatinine is relatively stable. We are going to continue following this, nephrology is on board. 10. Hypoalbuminemia likely secondary to protein calorie malnutrition. Patient now will continue to get albumin infusion at 50 mg 3 days in a row to see we can optimize his oncotic pressure to help with the lower extremity edema. 11. Hypokalemia. We will continue to replace this. So in general I think Mr. Penaloza is relatively stable. He got admitted after 2 days having received a port. Subsequent to that he developed pneumothorax and a chest tube has been placed. The chest tube was placed by Dr. Venegas on 10/15/2016 but this has not been able to be removed because he continues to leak a significant amount of air, is now on suctioning will just be pending surgery further recommendations. I think overall Mr. Penaloza' prognosis continues to be dismal especially since we know the underlying lung adenocarcinoma is progressively getting worse on a recent CT scan. However patient intends to continue active therapy. Hematology/Oncology is following. Today we are going to discontinue the Alicea catheter and as I said will give the patient another infusion of albumin. cc: Igor Barrientos MD
--- NOTE | 2016-10-22 22:50 | PROGRESS NOTE ---
DATE: 10/22/2016 SUBJECTIVE: Continues to be more obtunded and confused per the family. Is not in any respiratory distress. Is at his baseline. Work of breathing with productive cough. Chest tube was placed back to suction over the weekend, was water sealed yesterday. PHYSICAL EXAM: Temperature was 99.2 degrees, pulse 83, blood pressure 194/55, O2 saturation 93% on 4 L. He is a very ill, chronically cachectic and debilitated appearing male in no acute respiratory distress but he is using some accessory muscles to breathe, not dissimilar from his baseline. Right chest tube site is clean, dry, intact. The tube is well positioned and secured well to the skin. There is now an air leak with inspiration and some serous drainage. This is to water seal. DIAGNOSTIC DATA: On review of chest x-ray and labs, chest x-ray shows increasing pneumothorax on the right slightly and no mediastinal shift. ASSESSMENT AND PLAN: This is a 51 -year-old male with very advanced lung cancer. He is nearing end-stage of disease. He has had acute kidney injury during this admission, pneumothorax likely from a ruptured bleb related to his anesthesia during his port placement. I had a long discussion with his brothers and his today. I think at this point, they are wanting to focus more on palliative measures. They state that they absolutely do not want him on life-support, do not want chest compressions and I have talked to them about the avoidance of any invasive procedures going forward that would cause pain and unlikely impact of long-term survival and they understand this and they just want to keep him comfortable at this point. Given the increased air leak and the pneumothorax noted on his chest x-ray I will place a tube back to suction today and will monitor this. I suspect this is going to be difficult to get his lung to completely heal given the severe emphysematous changes and consolidated lung related to postobstructive parenchyma from his bronchial lesion. Will continue to monitor him, otherwise do not plan any surgical intervention. His chest tube seems to be adequately controlling his pneumothorax is just difficult to keep the lung expanded what all suction. cc: Virgen Venegas MD
[2016-10-23] MEDS: ZOSYN 2.25 GM/NS 2.25 GM/50 ML IVPB IV SCH ×3 (00:06→12:12)
[2016-10-23] MEDS: DILAUDID IV PRN ×6 (00:06→22:59)
[2016-10-23] MEDS: DUONEB (A & A) INH SCH ×6 (03:42→23:43)
[2016-10-23] MEDS: ZOFRAN IV PRN ×4 (05:18→21:17)
[2016-10-23 06:54] LABS: BASO% 1.1 % (0.0-0.8); EOS# 0.43 X1000 (0.0-0.7); EOS% 2.6 % (0.0-10.0); HEMATOCRIT 26.1 % (42.0-52.0); IMM GRAN# 0.06 X1000 (0.0-0.04); IMM GRAN% 0.4 % (0.0-0.5); LYMPH# 0.84 X1000 (1.2-3.4); MANUAL DIFF NEEDED? YES; MCH 29.1 PG (27-31); MCHC 30.7 g/dL (33-37); MCV 94.9 FL (81-99); MONO% 4.8 % (1.7-9.3); MPV 9.8 FL (7.4-10.4); NEUT% 86.1 % (42.2-75.2); PLT 150 X1000 (130-400); RBC 2.75 XMIL (4.7-6.1)
--- NOTE | 2016-10-23 07:14 | Diag Imaging Result Doc PS360 ---
EXAM: CHEST-PORTABLE HISTORY: dyspnea TECHNIQUE: AP portable at 0500 COMMENT: There is marked improvement in pneumatization of the right lower lobe compared to the previous study of 10/22/2016. The pneumothorax is somewhat diminished in volume. The appearance of the left lung has not changed significantly since the previous study. IMPRESSION: Improved right lower lobe atelectasis and right pneumothorax. Electronically signed by Monster Hawthorne 10/23/2016 7:12 AM
[2016-10-23 07:34] LABS: AGAP 14; ALBUMIN 2.6 g/dL (3.5-5.0); ALKALINE PHOSPHATASE 128 U/L (32-122); BUN 20 mg/dL (8-22); CALCIUM 8.1 mg/dL (8.8-10.2); CHLORIDE 107 mmol/L (98-107); COSMO 284; GOT 6 U/L (10-34); GPT < 5 U/L (10-44); POTASSIUM 2.8 mmol/L (3.5-5.1); SODIUM 141 mmol/L (136-145); TCO2 20 mmol/L (25-35); TOTAL BILIRUBIN 0.26 mg/dL (0.20-1.00); TOTAL PROTEIN 5.1 g/dL (6.3-8.3)
[2016-10-23] MEDS: PERCOCET-10 PO PRN ×4 (08:08→21:11)
[2016-10-23] MEDS: MARINOL PO SCH ×2 (08:11→21:10)
[2016-10-23] MEDS: LOVENOX SUBQ SCH ×2 (08:12→21:11)
[2016-10-23] MEDS: NICODERM PATCH TD SCH (08:12)
[2016-10-23] MEDS: FOLIC ACID PO SCH ×2 (08:13→21:11)
[2016-10-23] MEDS: ZYVOX PO SCH ×2 (08:13→21:11)
[2016-10-23] MEDS: ATIVAN IV PRN (08:17)
[2016-10-23] MEDS: ALBUMIN 25% IV SCH (08:18)
[2016-10-23 08:31] LABS: BANDS 6 % (0-1); EOS 2 % (1-10); MONO 4 % (1-9)
[2016-10-23 08:32] LABS: HYPOCHROM 1+
[2016-10-23] MEDS ORDERED: CLINIMIX E 4.25%-5% SOLUTION 1,000 ML IV SCH (09:00)
[2016-10-23] MEDS ORDERED: POTASSIUM CHLORIDE 40 MEQ/SWI 40 MEQ/100 ML IVPB IV ONE (13:37)
[2016-10-23] MEDS: CLINIMIX E 4.25%-5% SOLUTION 1,000 ML IV SCH (14:52)
--- NOTE | 2016-10-23 18:27 | PROGRESS NOTE ---
DATE: 10/23/2016 SUBJECTIVE: Mr. Penaloza is resting in bed. His family is at his bedside. He responds appropriately to verbal stimuli. He is alert to person and to place. He does drift off upon questioning very easily. Denies chest pain or increased work of breathing. OBJECTIVE: His most recent vital signs are temperature 98.8 degrees, blood pressure 98/67, heart rate 81, respirations 19. He remains on room air. Last recorded saturation 91% . He has had 850 in. He has had 2800 out. He has had 100 out of his chest tube to the right. LABS: Sodium 141, potassium 2.8, chloride 107, CO2 20, BUN 20, creatinine 2.3, glucose 97. Anion gap 14. Calcium 8.1, albumin 2.6. White count 16.7, hemoglobin 8, hematocrit 26.1 with a platelet count of 150,000. PHYSICAL EXAMINATION: General: This is a 51-year-old white male. He appears older than his stated age. He is resting quietly in bed. He is in no acute distress. Skin: Warm and dry. HEENT: Normocephalic atraumatic. Mucous membranes are dry. Neck: Supple. Trachea midline. No JVD. Cardiovascular: Regular rate and rhythm. Unable to appreciate any murmur or gallop. Pulmonary: Chest tube remains to the right. Diminished breath sounds to the right middle and upper lobe. Diminished breath sounds to the left posterior base. Patient remains on O2 supplementation, equal excursion. Abdomen: Flat, soft, nontender. Positive bowel sounds. Genitourinary: Alicea catheter is in place. Adequate pale yellow urine out. Extremities: Appear wasted with poor muscle mass. He moves all extremities x4. No clubbing or cyanosis. Integumentary: Warm and dry. Pale. Some redness noted around the dressing to his right chest wall. Neurological: Patient is alert to person, otherwise he is confused to place and most recent events. ASSESSMENT AND PLAN: 1. Acute kidney injury. More than likely, acute tubular necrosis. Renal function has remained basically stable from 2.1 to 2.3. His BUN remains at 20. Adequate urine out. Patient is not a candidate for hemodialysis. We will continue to monitor labs. 2. Electrolytes. Patient has hypokalemia. This has not been addressed. We will order 40 mEq of KCl per IV over 4 hours. The RN has been notified. 3. Acidosis. This remains stable. 4. Anemia. This remains low but stable. 5. Fluid volume. Patient is in a negative territory. 6. Blood pressure. This is controlled. I would like to thank you for allowing us to follow with this patient. Seen, data reviewed, discussed with Isabel Rivas on o10/23/16. I agree with the above assessment and plan of care. rg Dictated by SOPHIA Holm for Abdiaziz Matthews MD cc: SOPHIA Holm MD [facility]
[2016-10-24] MEDS: ZOFRAN IV PRN ×4 (01:49→21:15)
[2016-10-24] MEDS: ZOSYN 2.25 GM/NS 2.25 GM/50 ML IVPB IV SCH ×5 (01:49→17:57)
[2016-10-24] MEDS: PERCOCET-10 PO PRN ×2 (01:49→23:35)
[2016-10-24] MEDS: DILAUDID IV PRN ×6 (03:19→23:35)
[2016-10-24] MEDS: DUONEB (A & A) INH SCH ×6 (03:55→23:04)
--- NOTE | 2016-10-24 05:28 | PROGRESS NOTE ---
DATE: 10/23/2016 SUBJECTIVE: The patient has no major complaints. He is just very weak today. OBJECTIVE: Vital Signs: Blood pressure was 106/62, heart rate of 70, respiratory rate 18, temperature 97.6 degrees, 94% on 4 L. Cardiovascular: Regular rate and rhythm. Pulmonary: Bilateral breath sounds diminished at the bases. GI: Soft, nontender, nondistended. Bowel sounds are positive. Extremities: No clubbing or cyanosis. Lymphatics: No peripheral edema. Neurological: Examination was nonfocal. Laboratory Data: White count 16, hemoglobin and hematocrit 8 and 26, platelets 150,000. Chemistries: Potassium 2.8. PROBLEM LIST: 1. Acute hypoxic respiratory failure. He appears to be stabilized. We will continue to follow closely. 2. Pulmonary embolism. He is on Lovenox. I think we will need to transition him to a longstanding medication. I think for right now, since he has a chest tube, we are doing a short-acting anticoagulation. 3. Pneumothorax. Surgery is currently following and working on moving tube. 4. Worsening right lung adenocarcinoma with mediastinal adenopathy. Hematology/oncology is following. The family has discussed the possibility of hospice. Dr. Ku feels there are still treatment options which is up to him and the patient if that is what is decided by the patient. 5. Cachexia, severe protein calorie malnutrition. He is on Clinimix and albumin. 6. Acute kidney injury, appears to be resolved. 7. Anemia, chronic inflammation. We will continue to follow. DISPOSITION: We have discussed with the patient about the poor prognosis. He is a DNR at this point. He would not prefer hospice. I am not quite sure if he may not need some rehab. I do not know how functional he is going to be, able to go home. We are going to continue to progress with PT and follow accordingly. cc: Alexander Moreno MD
[2016-10-24 06:29] LABS: HEMATOCRIT 24.4 % (42.0-52.0); HEMOGLOBIN 7.2 g/dL (14.0-18.0); MCH 28.8 PG (27-31); MCHC 29.5 g/dL (33-37); MCV 97.6 FL (81-99); MPV 10.1 FL (7.4-10.4); RBC 2.5 XMIL (4.7-6.1)
[2016-10-24 07:03] LABS: ALBUMIN 2.2 g/dL (3.5-5.0); POTASSIUM 2.8 mmol/L (3.5-5.1)
[2016-10-24 08:11] LABS: CALCIUM 6.4 mg/dL (8.8-10.2)
[2016-10-24] MEDS ORDERED: CALCIUM GLUCONATE 1 GM in NS 50 ML IV ONE (08:54)
[2016-10-24] MEDS: KLOR-CON PO SCH (09:12)
[2016-10-24] MEDS: FOLIC ACID PO SCH ×2 (09:12→21:06)
[2016-10-24] MEDS: ZYVOX PO SCH ×2 (09:12→21:06)
[2016-10-24] MEDS: LOVENOX SUBQ SCH ×2 (09:13→20:05)
[2016-10-24] MEDS: MARINOL PO SCH ×2 (09:13→21:06)
[2016-10-24] MEDS: ALBUMIN 25% IV SCH (09:14)
[2016-10-24] MEDS: NICODERM PATCH TD SCH (09:15)
[2016-10-24] MEDS: CLINIMIX E 4.25%-5% SOLUTION 1,000 ML IV SCH ×2 (11:12→17:02)
--- NOTE | 2016-10-24 13:01 | PROGRESS NOTE ---
DATE: 10/24/2016 SUBJECTIVE: Mr. Penaloza is sitting up in bed. He is waiting for his breakfast. He is alert to person and to place. He is forgetful of year. Denies pain. OBJECTIVE: Vital Signs: His most recent vital signs are temperature 97.6 degrees, blood pressure 102/68, heart rate 67, respirations 23. He is on room air. Last recorded saturation 96%. He has had 1485 in. He has had 400 out per Alicea catheter. General: This is a 51- year-old white male. He is currently resting in bed. He appears older than his stated age. He has no complaints today. HEENT: Normocephalic, atraumatic. Mucous membranes are dry. Neck: Supple. Trachea midline. No JVD. Chest: Chest tube remains to the right upper chest quadrant. This remains dry and intact. Serous drainage to Pleur-evac. This remains to gravity. Cardiovascular: Regular rate and rhythm. No appreciable murmur or gallop. Lungs: Diminished breath sounds, right greater than left. He remains on room air. Abdomen: Soft, nontender. Positive bowel sounds. Genitourinary: Alicea catheter is in place. Adequate urine out. Pale yellow urine. Extremities: He has poor muscle mass to the lower extremities. He continues with 2 to 4+ edema. Able to move all 4 extremities. Skin: Warm and dry. Neurologic: Patient is alert to person and to place, as mentioned. LABORATORIES: Sodium 147, potassium 2.8, chloride 115, CO2 of 18, BUN 18, creatinine 1.8, glucose 97. Anion gap 14, calcium 6.4, albumin 2.2, phosphorus 3.7. Corrected calcium is 7.84. White count 15.4, hemoglobin 7.2, hematocrit 24.4, with a platelet count of 112,000. ASSESSMENT AND PLAN: 1. Acute kidney injury. His BUN and creatinine have continued to improve. Creatinine is down to 1.8 today. Baseline noted was at 1.2 prior to admission. 2. Electrolytes. Patient continues with chronic hypokalemia. He was given IV bolus of 40 mEq yesterday evening. He now has potassium p.o. supplement daily ordered by the primary care team. 3. Anemia. Hemoglobin has dropped to 7.2. We will defer to the primary care team for intervention. 4. Fluid volume. Patient remains in a negative fluid volume territory. I would to thank you for allowing us to follow with this patient. Seen, data reviewed, discussed with Isabel Rivas on 10/24/16. I agree with the above assessment and plan of care. rg Dictated by SOPHIA Holm for Abdiaziz Matthews MD cc: SOPHIA Holm MD [facility]
--- NOTE | 2016-10-24 14:28 | PROGRESS NOTE ---
DATE: 10/24/2016 SUBJECTIVE: Feels better. He is more alert this morning. Chest tube was placed back to suction yesterday for an increasing air leak and pneumothorax noted on his chest x-ray. No fevers. No tachycardia. Oxygen saturation is low to mid 90s on 4 L. OBJECTIVE: GENERAL APPEARANCE: Generally, he is more alert this morning, responsive, in no acute distress. Chest tube site is clean, dry, intact. No erythema. There is good connection. There is a slight FEV1 air leak to suction with some serous drainage. No chest x-ray this morning. I reviewed his labs. ASSESSMENT AND PLAN: This is a 51-year-old male with pneumothorax after port placement. This is likely related to a ruptured bleb given the prolonged nature of healing his air leak. He has got consolidated lung and large emphysematous changes that are complicating the resolution of this. Keep the tube to suction. We need to go slowly, as every time we water seal his tube his lung falls away and he does have a leak noted today, persistent. I will discuss this care with Dr. Ku. Family is really wanting to progress more towards hospice and their goals of care wish for him to be do not resuscitate and to really not pursue any further interventions. But, I will talk about the future goals of his care with his hospitalist and oncology team today. cc: Virgen Venegas MD
[2016-10-24] MEDS: DURAGESIC 100 MICROGM/HR PATCH TD SCH (17:10)
--- NOTE | 2016-10-24 21:02 | PROGRESS NOTE ---
DATE: 10/24/2016 SUBJECTIVE: The patient is still weak and difficulty breathing. OBJECTIVE: Vital signs: Blood pressure 105/58, heart rate 72, respiratory rate 18, temperature 98.1 degrees, 92% on 4 L. Cardiovascular: Regular rate and rhythm. Pulmonary: Bilateral breath sounds. Clear to auscultation. GI: Soft, nontender, nondistended. Bowel sounds are positive. LABORATORY DATA: White count 15, hemoglobin and hematocrit 7 and 24, platelets 112,000. Sodium 147, potassium 2.8, creatinine 1.8, calcium 6.4, albumin 2.2. PROBLEM LIST: 1. Right pneumothorax. He is still with chest tube in place and we will have to decide about long-term treatment, possible Pleurx versus pleurodesis. 2. Pulmonary embolus. He is currently on Lovenox. We will continue to follow. 3. Acute hypoxic respiratory failure. He is stable on his current amount of oxygen. 4. Right lung cancer. Dr. Ku is following him. At this point, still amenable to treatment. 5. Severe protein-calorie malnutrition. We will continue Clinimix and monitor. 6. Hypernatremia, hypokalemia. We will supplement and follow. DISPOSITION: Pending his clinical course, plan is to try to get him home. We will continue to follow. cc: Alexander Moreno MD
[2016-10-24] MEDS: ATIVAN IV PRN (23:45)
[2016-10-25] MEDS: ZOSYN 2.25 GM/NS 2.25 GM/50 ML IVPB IV SCH ×5 (00:05→18:33)
[2016-10-25] MEDS ORDERED: NS 500 ML ONE (00:43)
[2016-10-25] MEDS: DUONEB (A & A) INH SCH ×6 (04:01→22:53)
[2016-10-25] MEDS: PERCOCET-10 PO PRN ×2 (05:07→21:38)
[2016-10-25] MEDS: CLINIMIX E 4.25%-5% SOLUTION 1,000 ML IV SCH ×3 (05:08→22:38)
[2016-10-25 07:14] LABS: HEMATOCRIT 28.6 % (42.0-52.0); HEMOGLOBIN 8.7 g/dL (14.0-18.0); MCH 29.4 PG (27-31); MCHC 30.4 g/dL (33-37); MCV 96.6 FL (81-99); MPV 10.6 FL (7.4-10.4); RBC 2.96 XMIL (4.7-6.1)
[2016-10-25 07:31] LABS: ALBUMIN 2.9 g/dL (3.5-5.0); CALCIUM 8.1 mg/dL (8.8-10.2); POTASSIUM 3.3 mmol/L (3.5-5.1)
--- NOTE | 2016-10-25 08:58 | Diag Imaging Result Doc PS360 ---
EXAM: CHEST-PORTABLE INDICATION: chest tube TECHNIQUE: One view COMPARISON: 10/23/2016 FINDINGS: Right chest port is in stable position. The small right chest using is stable. The small right pneumothorax continues to improve and is actually difficult to detect on the current study. Right basilar atelectasis is essentially stable. There appears to be a small amount of residual pleural fluid at the right lung base. No new consolidation is appreciated. Cardiac silhouette is stable. IMPRESSION: Continued improvement of the small right pneumothorax, which is now not clearly perceptible by plain radiograph. Electronically signed by Chacho Mcgarry 10/25/2016 8:55 AM
[2016-10-25] MEDS: DILAUDID IV PRN ×4 (09:25→22:38)
[2016-10-25] MEDS: ALBUMIN 25% IV SCH (09:45)
[2016-10-25] MEDS: ZYVOX PO SCH ×2 (09:46→21:35)
[2016-10-25] MEDS: KLOR-CON PO SCH (09:46)
[2016-10-25] MEDS: NICODERM PATCH TD SCH (09:46)
[2016-10-25] MEDS: LOVENOX SUBQ SCH ×2 (09:47→21:35)
[2016-10-25] MEDS: FOLIC ACID PO SCH ×2 (09:47→21:35)
[2016-10-25] MEDS: MARINOL PO SCH ×2 (09:49→21:35)
[2016-10-25] MEDS: ZOFRAN IV PRN ×2 (09:50→15:41)
--- NOTE | 2016-10-25 14:10 | PROGRESS NOTE ---
DATE: 10/25/2016 SUBJECTIVE: Mr. Penaloza is resting quietly in bed. Head of the bed is elevated. He is in no acute distress. He is alert to person and to place only. OBJECTIVE: Vital signs: His most recent vital signs, temperature 97.8 degrees , blood pressure 99/61, heart rate 78, respirations 24. He is on room air. Last recorded saturation 95%. He has had 1460 in. He has had 1 L out. Labs: Sodium 142, potassium 3.3, chloride 107, CO2 21, BUN 22, creatinine 2.1, glucose 93, anion gap 14, calcium 8.1, phosphorus 4.2, albumin 2.9. White count 18.91, hemoglobin 8.7, hematocrit 28.6, with a platelet count of 151,000. PHYSICAL EXAMINATION: General: This is a 51-year-old, middle-aged, white male who appears older than his stated age. He is resting quietly in bed. He is in no acute distress. Skin: Warm and dry. HEENT: Normocephalic, atraumatic. Conjunctivae pale. He has LADONNA. Mucous membranes are dry. Neck: Supple. Trachea midline. No JVD. Cardiovascular: He is regular rate and rhythm. He is without murmur or gallop. Chest: Lungs are clear to auscultation. He has diminished breath sounds to the right, this is greater than left. He remains with a chest tube drain intact, draining serous drainage to Pleur-Evac to gravity. Abdomen: Soft, nontender. Positive bowel sounds. Genitourinary: Alicea catheter is in place with adequate urine out. Extremities: Has 2 to 4+ pitting edema up above the knees. Able to move all 4 extremities well. Skin is warm and dry. Neurological: Again as mentioned above. ASSESSMENT AND PLAN: 1. Acute kidney injury. BUN and creatinine continue to improve. His creatinine remains stable at this time. No indications for intervention. 2. Electrolytes. Patient has chronic hypokalemia. This is being addressed by the primary care team. He is on p.o. potassium. 3. Acid-base balance. This remains stable. 4. Anemia. This is improved. 5. Fluid volume. Patient has been in a positive fluid balance of 1.5 L today, in the last 24 hours. I would like to thank you for allowing us to follow with this patient. Seen, data reviewed, discussed with Isabel Rivas on 10/25/16. I agree with the above assessment and plan of care. rg Dictated by SOPHIA Holm for Abdiaziz Matthews MD cc: SOPHIA Holm MD [facility]
--- NOTE | 2016-10-25 15:30 | PROGRESS NOTE ---
DATE: 10/25/2016 SUBJECTIVE: He feels well. Seems in better spirits today, more alert. OBJECTIVE: Vital Signs: No fevers. No tachycardia. Blood pressure 107/61, oxygen saturation is improved and now 95% on 2 L. General: He is alert. His coloring seems to be better. Cardiovascular: Normal rate, regular rhythm. He has an FEV 1 air leak with forced expiration. His tube is at -30 mmHg with some serous drainage in the canister. LABS: White count is up to 18, hematocrit 28, platelets are 151. Creatinine is 2.1 which is above his baseline, but stable. DIAGNOSTICS: A chest x-ray shows no obvious residual pneumothorax, improved aeration in the right lower lobe with no significant effusion. Overall, this is the best x-ray has looked to date. ASSESSMENT/PLAN: A 51-year-old male with at least stage III lung cancer with pneumothorax after anesthesia for port placement. He continued to have a low volume air leak. His lung is well expanded with suction. I spoke with Dr. Ku. He is discussing with hospice agencies the possibility of home with chest tube and management of Pleur-Evac device at home with hospice. Family seems amenable to this. He is in good spirits. In the meantime, he is being treated for pneumonia, pulmonary embolus and general deconditioning. Will continue to follow along. Will keep the tube to suction for several days. Hopefully, this leak will resolve, although I am becoming less confident that will be the case, but overall he is asymptomatic from this standpoint. Tubes in good position and serving its purpose. cc: Virgen Venegas MD
--- NOTE | 2016-10-25 17:14 | PROGRESS NOTE ---
DATE: 10/25/2016 SUBJECTIVE: Patient has no focal complaints. OBJECTIVE: Vital Signs: Blood pressure 105/43, heart rate 78, respiratory rate 16, temperature 98.1 degrees, 100% saturation on room air. Cardiovascular: Regular rate and rhythm. Pulmonary: Bilateral breath sounds. Clear to auscultation. GI: Soft, nontender, nondistended. Bowel sounds are positive. Extremities: No clubbing or cyanosis. General Appearance: Generally speaking, he is cachectic. LABORATORY DATA: White count is 18, hemoglobin and hematocrit 8 and 28, platelets 151,000. Chemistries: Potassium 3.1, creatinine 2.6, potassium 8.1. PROBLEM LIST: 1. Right pneumothorax, associated pneumonia. He has a chest tube in place. Surgery is following, deciding about Pleurx versus pleurodesis. 2. Pulmonary embolism. He is currently on Lovenox. I will decide on long-term anticoagulation once the surgical plan is more concrete. 3. Acute hypoxic respiratory failure. Appears to be stable. 4. Right lung cancer with progression. Obviously this has had a significant toll on him. At this point there is no further treatment that can be pursued as he is clinically ill. He will need to be stabilized first. 5. Severe protein-calorie malnutrition, he is on Clinimix, and follow. DISPOSITION: Patient would like to go home but he is not really clear on pursuing hospice. So I am not sure what else we are going to do from that standpoint. Apparently they are working on a Pleur-evac device at home with hospice. So hopefully discharge in the next 1-2 days once that is kind of stabilized. Interestingly enough there is no social work consult so I am going to get them to start working on it, I guess it would be appropriate I think. In any case, we will continue to follow. cc: Alexander Moreno MD
[2016-10-25] MEDS: ATIVAN IV PRN (21:39)
[2016-10-26] MEDS: ZOSYN 2.25 GM/NS 2.25 GM/50 ML IVPB IV SCH ×5 (01:07→23:50)
[2016-10-26] MEDS: DUONEB (A & A) INH SCH ×6 (03:31→23:05)
[2016-10-26] MEDS: DILAUDID IV PRN ×5 (03:33→23:49)
[2016-10-26 05:56] LABS: HEMOGLOBIN 8.5 g/dL (14.0-18.0); MCH 29.5 PG (27-31); MCHC 30.4 g/dL (33-37); MCV 97.2 FL (81-99); MPV 10.3 FL (7.4-10.4); RBC 2.88 XMIL (4.7-6.1)
[2016-10-26] MEDS: PERCOCET-10 PO PRN ×4 (06:03→20:44)
[2016-10-26] MEDS: ATIVAN IV PRN ×2 (06:03→20:45)
[2016-10-26 06:04] LABS: ALBUMIN 3.1 g/dL (3.5-5.0); CALCIUM 8.5 mg/dL (8.8-10.2); POTASSIUM 3.6 mmol/L (3.5-5.1)
[2016-10-26] MEDS: NICODERM PATCH TD SCH (09:47)
[2016-10-26] MEDS: ZYVOX PO SCH ×2 (09:47→20:45)
[2016-10-26] MEDS: KLOR-CON PO SCH (09:47)
[2016-10-26] MEDS: FOLIC ACID PO SCH ×2 (09:48→20:45)
[2016-10-26] MEDS: MARINOL PO SCH ×2 (09:48→20:44)
[2016-10-26] MEDS: LOVENOX SUBQ SCH ×2 (09:48→20:43)
[2016-10-26] MEDS: ZOFRAN IV PRN ×2 (12:22→17:00)
[2016-10-26] MEDS: CLINIMIX E 4.25%-5% SOLUTION 1,000 ML IV SCH (14:30)
--- NOTE | 2016-10-26 15:09 | PROGRESS NOTE ---
DATE: 10/26/2016 SUBJECTIVE: This patient has no complaints today. Family member is at the bedside, his . We discussed about the possibility of hospice with this patient and they agree with this. I have communicated with the social problems specialist. We will start working on this. OBJECTIVE: Vital Signs: Temperature 98.3 degrees, pulse 82, respiratory rate 29, blood pressure 109/62, and oxygen saturation 95% on room air. HEENT: Head normocephalic. No trauma. PERRLA. Neck: Supple. No JVD. No masses. Central trachea. Chest: Decreased breath sounds at the level of the right lower lung with some crackles. Abdomen: Soft, nontender, nondistended. Positive bowel sounds. Extremities: No clubbing, no cyanosis, no edema. Decreased muscle mass. General Appearance: He is a cachectic, chronically ill-appearing patient. LABORATORY: WBC 21.4, hemoglobin 8.5, hematocrit 28, and platelets 197,000. Sodium 141, potassium 3.6, chloride 106, bicarbonate 23, BUN 25, creatinine 2.0, glucose 102, calcium 8.5, albumin 3.1. ASSESSMENT AND PLAN: 1. Right pneumothorax with associated pneumonia. Chest tube in place. Surgery Department is following this patient. They are deciding about PleurX versus pleurodesis. I talked to this patient and he wants to go home with hospice. 2. Pulmonary embolism. Currently on Lovenox. Will decide on long-term anticoagulation once surgical plan is done. 3. Acute hypoxic respiratory failure. Resolved. 4. Right lung cancer with metastasis. This patient looks cachectic. We talked about hospice today and he seems to understand that he probably should go home with hospice. 5. Severe protein calorie malnutrition. Continue with the same management for now. cc: Raffi Peters MD
[2016-10-27] MEDS: ATIVAN IV PRN ×2 (03:09→21:00)
[2016-10-27] MEDS: PERCOCET-10 PO PRN ×4 (03:09→23:45)
[2016-10-27] MEDS: CLINIMIX E 4.25%-5% SOLUTION 1,000 ML IV SCH ×2 (03:14→16:59)
[2016-10-27] MEDS: DUONEB (A & A) INH SCH ×6 (03:53→23:04)
[2016-10-27] MEDS: DILAUDID IV PRN ×5 (05:49→21:00)
[2016-10-27] MEDS: ZOSYN 2.25 GM/NS 2.25 GM/50 ML IVPB IV SCH ×4 (05:49→23:46)
[2016-10-27 06:44] LABS: EOS# 0.31 X1000 (0.0-0.7); EOS% 1.4 % (0.0-10.0); HEMATOCRIT 28.2 % (42.0-52.0); HEMOGLOBIN 8.6 g/dL (14.0-18.0); IMM GRAN# 0.11 X1000 (0.0-0.04); IMM GRAN% 0.5 % (0.0-0.5); LYMPH# 0.92 X1000 (1.2-3.4); LYMPH% 4.2 % (20.5-51.1); MANUAL DIFF NEEDED? YES; MCH 28.9 PG (27-31); MCHC 30.5 g/dL (33-37); MCV 94.6 FL (81-99); MONO# 0.75 X1000 (0.11-0.59); MONO% 3.4 % (1.7-9.3); MPV 9.8 FL (7.4-10.4); NEUT% 89.5 % (42.2-75.2); PLT 232 X1000 (130-400); RBC 2.98 XMIL (4.7-6.1)
[2016-10-27 06:50] LABS: ALBUMIN 2.9 g/dL (3.5-5.0); CALCIUM 8.3 mg/dL (8.8-10.2); POTASSIUM 3.5 mmol/L (3.5-5.1)
[2016-10-27 07:32] LABS: BANDS 2 % (0-1); HYPOCHROM 2+; LYMPHS 2 % (21-51); MONO 2 % (1-9)
--- NOTE | 2016-10-27 09:05 | Diag Imaging Result Doc PS360 ---
CHEST-PORTABLE - 10/27/2016 INDICATION: chest tube TECHNIQUE: COMPARISON: 10/25/2016 FINDINGS: There is a stable small chest tube at the lateral right chest. No significant pneumothorax. Stable right chest port. Stable COPD. Stable infiltrate at the right lung base and a right infrahilar mass. Stable right basilar effusion. The left lung remains grossly clear. IMPRESSION: No significant change from prior. Electronically signed by Moises Schroeder 10/27/2016 9:03 AM
[2016-10-27] MEDS: NICODERM PATCH TD SCH (09:16)
[2016-10-27] MEDS: FOLIC ACID PO SCH ×2 (09:16→21:01)
[2016-10-27] MEDS: MARINOL PO SCH ×2 (09:16→21:01)
[2016-10-27] MEDS: LOVENOX SUBQ SCH ×2 (09:16→21:02)
[2016-10-27] MEDS: KLOR-CON PO SCH (09:16)
[2016-10-27] MEDS: ZYVOX PO SCH ×2 (09:16→21:02)
--- NOTE | 2016-10-27 11:10 | PROGRESS NOTE ---
DATE: 10/27/2016 SUBJECTIVE: He is getting a bath this morning but did not seem to have any events per his chart. No fevers. No tachycardia. Oxygen saturation 97% on 2 L. LABS: White count is 22 this morning. Hematocrit is 28. Creatinine is down to 1.7. Chest x- ray, overall shows improved aeration on the right hemothorax. Good position of the chest tube. There may be a small residual right-sided pneumothorax but it is difficult to say and overall improvement in the consolidation in his right lower lobe. ASSESSMENT/PLAN: 51-year-old male with end stages of his lung cancer, pneumothorax on the right. Chest tubes in place. We keep this to suction. If his film looks okay tomorrow we may discuss water sealing but I think the ultimate plans are to get him home with hospice with this tube as I do believe he is nearing end of life. cc: Virgen Venegas MD
--- NOTE | 2016-10-27 13:54 | PROGRESS NOTE ---
DATE: 10/27/2016 SUBJECTIVE: This patient has no complaints today. Family member is at the bedside, his . We discussed yesterday about the possibility of hospice and they decided to talk to [facility]. I asked the nurse to call this hospice team to set up everything for this patient. OBJECTIVE: Vital Signs: Temperature 98.2 degrees, pulse 84, respiratory rate 21, blood pressure 138/109, oxygen saturation 94% on 2L nasal cannula. HEENT: Head normocephalic. No trauma. PERRLA. Neck: Supple. No JVD. No masses. Central trachea. Chest: Decreased breath sounds at the level of the right lower lung with some crackles. Abdomen: Soft, nontender, nondistended. Positive bowel sounds. Extremities: No clubbing. No cyanosis. No edema. Decreased muscle mass. General Appearance: This patient is a cachectic, chronically ill-appearing patient. Neurologic: Stable. LABORATORY: WBC 22, hemoglobin 8.6, hematocrit 28.2, platelets 232,000. Sodium 141, potassium 3.5, chloride 105, bicarbonate 22, BUN 27, creatinine 1.7, glucose 120, calcium 8.3, albumin 2.9. ASSESSMENT AND PLAN: 1. Right pneumothorax with associated pneumonia. Chest tube in place. Surgery Department is following this patient. I already talked to the patient and he wants to go home with hospice. The family decided to call [facility]. 2. Pulmonary embolism, currently on Lovenox. Will decide on long-term anticoagulation once surgical plan is done. 3. Acute hypoxic respiratory failure. Resolved. 4. Right lung cancer with metastasis. This patient looks cachectic and weak, and he wants to go home with hospice. I talked to the and they do not have a good place to go. She will talk to the rest of the family to see if they can get a better place to go. 5. Severe protein calorie malnutrition. Continue with the same management. cc: Raffi Peters MD
[2016-10-27] MEDS: DURAGESIC 100 MICROGM/HR PATCH TD SCH (14:10)
[2016-10-28] MEDS: DILAUDID IV PRN ×6 (01:31→22:10)
[2016-10-28] MEDS: DUONEB (A & A) INH SCH ×6 (03:34→22:57)
[2016-10-28] MEDS: PERCOCET-10 PO PRN ×5 (04:25→20:52)
[2016-10-28] MEDS: ZOSYN 2.25 GM/NS 2.25 GM/50 ML IVPB IV SCH ×4 (06:03→23:30)
[2016-10-28 06:56] LABS: ALBUMIN 3.1 g/dL (3.5-5.0); CALCIUM 8.5 mg/dL (8.8-10.2); POTASSIUM 3.6 mmol/L (3.5-5.1)
[2016-10-28] MEDS: CLINIMIX E 4.25%-5% SOLUTION 1,000 ML IV SCH ×2 (08:14→22:10)
[2016-10-28] MEDS: MARINOL PO SCH ×2 (08:15→20:53)
[2016-10-28] MEDS: KLOR-CON PO SCH (08:15)
[2016-10-28] MEDS: FOLIC ACID PO SCH ×2 (08:15→20:52)
[2016-10-28] MEDS: ZYVOX PO SCH ×2 (08:15→20:53)
[2016-10-28] MEDS: NICODERM PATCH TD SCH ×2 (08:16→09:57)
[2016-10-28] MEDS: LOVENOX SUBQ SCH ×2 (08:16→20:53)
[2016-10-28 09:01] LABS: BASO% 0.9 % (0.0-0.8); EOS# 0.37 X1000 (0.0-0.7); EOS% 1.4 % (0.0-10.0); HEMATOCRIT 28.4 % (42.0-52.0); HEMOGLOBIN 8.7 g/dL (14.0-18.0); IMM GRAN# 0.08 X1000 (0.0-0.04); IMM GRAN% 0.3 % (0.0-0.5); LYMPH# 1.08 X1000 (1.2-3.4); LYMPH% 4.2 % (20.5-51.1); MANUAL DIFF NEEDED? YES; MCH 29.3 PG (27-31); MCHC 30.6 g/dL (33-37); MCV 95.6 FL (81-99); MONO# 0.92 X1000 (0.11-0.59); MONO% 3.6 % (1.7-9.3); MPV 9.7 FL (7.4-10.4); NEUT% 89.6 % (42.2-75.2); PLT 312 X1000 (130-400); RBC 2.97 XMIL (4.7-6.1)
--- NOTE | 2016-10-28 09:11 | PROGRESS NOTE ---
DATE: 10/28/2016 SUBJECTIVE: Feels much better. Cough is becoming less productive. OBJECTIVE: Vital Signs: No fevers. No tachycardia. Blood pressure 108/55, oxygen saturation low 90s on 2 L. Chest: Chest tube is in place. Dressing clean, dry, intact. The port incision is healing well. There is no air leak but persistent serous drainage from his chest tube. Labs: White count was elevated yesterday at 22. Labs today are pending. Creatinine, however, is down 1.7. Chest x-ray shows near complete resolution of pneumothorax with good aeration of the lung and much improved overall. ASSESSMENT AND PLAN: This is a 51-year-old male with lung cancer. It appears that the air leak is resolved on his exam today. He continues to have some serous output and his chest x-ray looks good. We will keep it to suction today. It is down to -20. We will possibly water-seal it tomorrow, depending on how his film looks. Otherwise, aggressive pulmonary toileting care per the oncology medical services. cc: Virgen Venegas MD
[2016-10-28 10:16] LABS: BANDS 2 % (0-1); HYPOCHROM 1+; LYMPHS 6 % (21-51); MONO 4 % (1-9)
--- NOTE | 2016-10-28 15:08 | PROGRESS NOTE ---
DATE: 10/28/2016 SUBJECTIVE: This patient has no complaints today. Family members at the bedside, his . This patient decided to go home with hospice, social services designee on board, they already decided to go with [facility]. OBJECTIVE: Vital Signs: Temperature 97.5 degrees, pulse 76, respiratory rate 20, blood pressure 107/64, oxygen saturation 98 on 2 L of nasal cannula. General: Chronically ill patient, cachectic. HEENT: Head normocephalic. No trauma. PERRLA. Neck: Supple. No JVD. No masses. Central trachea. Chest: Decreased breath sounds at the level of the right lower lung with some crackles. Abdomen: Soft, nontender, nondistended. Positive bowel sounds. Extremities: No clubbing, cyanosis, or edema. Decreased muscle mass. Neurologic: The patient is alert and he is oriented x3. No focal deficits. LABORATORY: WBC 25.6, hemoglobin 8.7, hematocrit 28.4, platelets 312,000. Sodium 140, potassium 3.6, chloride 104, bicarbonate 22, BUN 28, creatinine 1.7, glucose 99, calcium 8.5, albumin 3.1. ASSESSMENT AND PLAN: 1. Right pneumothorax with associated pneumonia. Chest tube in place. Surgery Department is following this patient. This patient will go home with hospice. We are making arrangements for that. 2. Leukocytosis. Continue with the same management. 3. Pulmonary embolism currently on Lovenox. Will decide on terminal operations supervisor anticoagulation once surgical plan is done. 4. Acute hypoxic respiratory failure resolved. 5. Right lung cancer with metastases. Patient is cachectic. He wants to go home with hospice. They are looking for place to go because the says that their home is not appropriate for this, probably he will go to 1 of his brothers house. 6. Severe protein calorie malnutrition. Continue with the same management. cc: Raffi Peters MD
[2016-10-28] MEDS: ZOFRAN IV PRN (16:03)
[2016-10-29] MEDS: DILAUDID IV PRN ×4 (02:36→14:49)
[2016-10-29] MEDS: DUONEB (A & A) INH SCH ×4 (03:46→15:30)
[2016-10-29] MEDS: PERCOCET-10 PO PRN ×3 (04:02→11:57)
[2016-10-29] MEDS: ZOSYN 2.25 GM/NS 2.25 GM/50 ML IVPB IV SCH ×2 (06:08→11:57)
[2016-10-29 06:58] LABS: BASO% 0.7 % (0.0-0.8); EOS# 0.33 X1000 (0.0-0.7); EOS% 1.4 % (0.0-10.0); HEMATOCRIT 28.2 % (42.0-52.0); HEMOGLOBIN 8.5 g/dL (14.0-18.0); IMM GRAN# 0.09 X1000 (0.0-0.04); IMM GRAN% 0.4 % (0.0-0.5); LYMPH# 1.02 X1000 (1.2-3.4); LYMPH% 4.3 % (20.5-51.1); MANUAL DIFF NEEDED? YES; MCH 28.9 PG (27-31); MCHC 30.1 g/dL (33-37); MCV 95.9 FL (81-99); MONO# 0.91 X1000 (0.11-0.59); MONO% 3.8 % (1.7-9.3); MPV 9.5 FL (7.4-10.4); NEUT% 89.4 % (42.2-75.2); PLT 358 X1000 (130-400); RBC 2.94 XMIL (4.7-6.1)
[2016-10-29 07:17] LABS: CALCIUM 8.8 mg/dL (8.8-10.2); POTASSIUM 3.7 mmol/L (3.5-5.1)
[2016-10-29 07:52] LABS: EOS 2 % (1-10); LYMPHS 7 % (21-51); MONO 1 % (1-9)
[2016-10-29] MEDS: FOLIC ACID PO SCH (08:11)
[2016-10-29] MEDS: KLOR-CON PO SCH (08:11)
[2016-10-29] MEDS: ZYVOX PO SCH (08:12)
[2016-10-29] MEDS: NICODERM PATCH TD SCH (08:12)
[2016-10-29] MEDS: LOVENOX SUBQ SCH ×2 (08:12→08:28)
--- NOTE | 2016-10-29 08:33 | Diag Imaging Result Doc PS360 ---
EXAM: CHEST-PORTABLE HISTORY: chest tube TECHNIQUE: AP upright and 0818 COMMENT: There is a recurrent right pneumothorax. The chest tube which was previously demonstrated on 10/27/[address]. There is continued opacification of the right lower lobe, with bullous emphysema in the right apex and what appears to be a cavitary poorly defined alveolar opacity in the left lower lobe. IMPRESSION: Recurrent right pneumothorax. Pneumonia, COPD, and probable cavitary metastases. The findings were discussed with Woody Venegas MD at 10/29/2016 8:35 AM. Electronically signed by Monster Hawthorne 10/29/2016 8:31 AM
--- NOTE | 2016-10-29 11:34 | PROGRESS NOTE ---
DATE: 10/29/2016 SUBJECTIVE: This patient has no complaints today. No family members at the bedside. I talked again with the patient and he states that he wants to go to his brother's house with hospice. He does not want to get any for further treatment for his cancer. Also, he states that he still wants to be DNR level 1. We have a chest x-ray done today that showed recurrent pneumothorax. Surgery department will be notified, we will try to have a plan for this patient and hospice. OBJECTIVE: Vital Signs: Temperature 98 degrees, pulse 73, respiratory rate 17, blood pressure 104/69, oxygen saturation 95% on 2 L of nasal cannula. HEENT: Head normocephalic. No trauma. PERRLA. Neck: Supple. No JVD. No masses. Central trachea. Chest: Decreased breath sounds at the bases mostly at the level of the right lower lung with some crackles. Abdomen: Soft, nontender, nondistended. Positive bowel sounds. Extremities: No edema. No clubbing. No cyanosis. Decreased muscle mass. Neurological: The patient is alert and oriented x3. No focal deficits. General: Chronically ill patient. Cachectic. LABORATORY: WBC 23.7, hemoglobin 8.5, hematocrit 28.2, platelets 358,000. Sodium 140, potassium 3.7, chloride 103, bicarbonate 25, BUN 30, creatinine 1.5, glucose 111, calcium 8.8. ASSESSMENT AND PLAN: 1. Right pneumothorax with associated pneumonia, chest tube in place. Surgery Department is following this patient. He has a recurrent pneumothorax today. 2. Leukocytosis. Continue with the same management. He is on Zyvox and Zosyn. 3. Acute hypoxic respiratory failure. Resolved. 4. Right lung cancer with metastasis. Patient is cachectic. He wants to go to his brother's house with hospice, he does not want anymore cancer treatment. He still wants to be DNR level 1. 5. Severe protein calorie malnutrition. Continue with the same management. cc: Raffi Peters MD
[2016-10-29] MEDS: MARINOL PO SCH (11:57)
--- NOTE | 2016-10-29 12:58 | Diag Imaging Result Doc PS360 ---
EXAM: CHEST-PORTABLE HISTORY: pneumothorax TECHNIQUE: Portable upright AP at 1245 COMMENT: There continues to be pneumothorax on the right which is not appreciably changed from the prior previous study at 0818. The left lung is stable in appearance. IMPRESSION: Stable right pneumothorax. Electronically signed by Monster Hawthorne 10/29/2016 12:56 PM
[2016-10-29] MEDS ORDERED: ZOFRAN PO PRN (14:45)
[2016-10-29] MEDS: CLINIMIX E 4.25%-5% SOLUTION 1,000 ML IV SCH (14:50)
[2016-10-29 15:16] VITALS: BP 112/69
--- NOTE | 2016-10-29 16:21 | PROGRESS NOTE ---
DATE: 10/29/2016 SUBJECTIVE: He feels well, asymptomatic. He did appear to have a slight reaccumulation of some pneumothorax at the right base but he is completely asymptomatic. Also breathing comfortably with no pain. Chest tube without air leak, some serosanguineous drainage. OBJECTIVE: Afebrile. No tachycardia. Blood pressure 112/69, O2 saturation 94% on room air. ASSESSMENT/PLAN: A 51-year-old male with end-stage lung cancer. Plan is to go home with hospice today. I water-sealed his chest tub. There was slight reaccumulation in the pneumothorax this morning. No real air leak noted but it did not progress with water seal. I think it is safe for him to discharge as his lung is unlikely to ever completely heal and stay expanded. I talked to Dr. Al about this and patient. They will call my office if they have any questions or concerns. Otherwise he can follow up with me as needed. We will plan to leave his tube in indefinitely. cc: Virgen Venegas MD
[2016-10-29] MEDS ORDERED: MS CONTIN PO SCH (21:00)
--- NOTE | 2016-10-30 14:29 | DISCHARGE SUMMARY ---
ADMISSION DATE: 10/15/2016 DISCHARGE DATE: 10/29/2016 CONSULTATIONS: 1. Anupam Motta MD with Cardiology. 2. Dr. Woody Venegas with General Surgery. 3. Dr. Tevin Rodriguez with Pulmonology. 4. Dr. Abdiaziz Matthews with Nephrology. 5. Dr. Nikki Drew with Hematology/Oncology. PROCEDURES: 1. Pulmonary arteriogram showed acute bilateral pulmonary emboli. Surgical changes with a chest tube on the right. Trace right pneumothorax. Progression and consolidation in the right lower lobe. Fluid or mucous impaction on the right side rhonchi. 2. Echocardiogram showed an EF of 60-65%. 3. Right-sided chest tube placement performed by Dr. Woody Venegas. 4. Bilateral lower extremity showed extensive deep and superficial venous thromboses of bilateral lower extremities. 5. Renal ultrasound showed interval development of increased renal echotexture that could be seen in medical renal disease. 6. Final chest x-ray, with chest tube placed to water-seal showed a stable right pneumothorax, unchanged from previous studies. DISCHARGE DIAGNOSES: 1. Right pneumothorax with associated pneumonia. Chest tube in place, followed by Dr. Venegas. He will follow up with him in 2 weeks. The patient is going home when [facility]. 2. Acute hypoxemic respiratory failure. Resolved. 3. Right lung cancer with metastasis. Again, patient is going home with [facility]. He does not wish to have any more cancer treatment. He was a Do Not Resuscitate level 1 while in our facility. He is being discharged home today. 4. Severe protein calorie malnutrition. 5. Pulmonary embolism, currently on Lovenox. 6. Bilateral deep and superficial venous thrombosis. Patient was on full dose Lovenox. 7. Leukocytosis. Stable. 8. Acute kidney injury. Stable. 9. Hyperkalemia. Resolved. HOSPITAL COURSE: Mr. Penaloza is a 51-year-old gentleman with a history of right lung adenocarcinoma recently diagnosed. He did have a right superficial IJ port placed on October 10 and 1st dose of chemotherapy on October 12. The patient began to complain of shortness of breath. On Saturday night it had progressively gotten worse. He presented to the emergency room. He was anxious. He had room air saturations at 88%. His O2 saturations came up to 95-97% on 6 L nasal cannula. His chest x-ray revealed interval development of a moderate-sized right-sided hydropneumothorax. The left lung was well expanded and clear. Chest tube was placed by Dr. Woody Venegas. He was also found to have leukocytosis as well as hypokalemia. He received supplementation for his hypokalemia. He was transferred to [facility], continued on supplemental O2 and IV fluids as well as pain and nausea control. He did have postobstructive pneumonia in May, so they went ahead and obtained blood cultures and started on antibiotic coverage. He underwent a pulmonary arteriogram that did show acute bilateral pulmonary emboli. He was started on full-dose Lovenox. He did have bilateral lower extremity Dopplers that did show extensive deep and superficial venous thromboses in bilateral lower extremities. The patient's pneumothorax did resolve after chest tube placement. However, 48 hours after being to water-seal he developed reaccumulation of his pneumothorax. There was no leak seen on his Pleur-evac. It was placed back to suction, along with his other significant medical issues and is being treated for pneumonia and a bump up in his creatinine. Nephrology was consulted to see the patient. He was initiated on IV fluids. His urine output has been excellent. He had no indication for intervention. His electrolytes and acid base remained on target with overall improvement in his BUN and creatinine. Dr. Venegas during his admission did have a long discussion with the brothers and his . They were wanting to focus more on palliative measures. They absolutely did not want him on life support. They did want chest compression, and they did talk to them about avoidance of any invasive procedures and just to keep him comfortable at this point. He does have consolidative lung and large emphysematous changes that are complicating the resolution. He is having to keep his chest tube to suction. The case was discussed with Dr. Ku and the family. They are progressing more toward hospice care. The patient was made a Do Not Resuscitate level 1. The family has gotten together with social work therapist and they have chosen [facility] for their needs. This will be set up at his brother's residence. Patient chest x-ray this morning to water-seal showed recurrent right pneumothorax. Repeat chest x-ray after placed to water-seal showed stable right pneumothorax. After Dr. Al discussed with Dr. Venegas, the patient is set up to be discharged with hospice today. Vital signs temperature is 98 degrees, heart rate 73, respiration 17, blood pressure is 104/69, O2 is 94% on 2 L nasal cannula. DISCHARGE DIET: Mechanical soft with Ensure. DISCHARGE MEDICATIONS PER DR. AL: 1. Dronabinol 5 mg p.o. b.i.d. 2. Fentanyl Duragesic patch 25 mcg/hour, q.72 hours. 3. Folic acid 1 mg p.o. b.i.d. 4. Zyvox 600 mg p.o. q.12 hours. 5. MS Contin 15 mg p.o. b.i.d. 6. Zofran 4 mg p.o. q.6 hours p.r.n. 7. Percocet 10, 1 each p.o. q.4 hours p.r.n. FOLLOW-UP: Patient is being discharged home with his brother on [facility]. He will follow up with Dr. Venegas in 2 weeks. He will be going home with his chest tube. DISCHARGE TIME: Greater than 35 minutes. Dictated by SOPHIA Marshall for Raffi Peters MD cc: Raffi Peters MD
== END 2016-10-29 16:27 | disposition hospice, home (50) ==
LOC: P.ED 05:04 → SUATTDRO 08:56 → ICU 08:56 → 3N 10-18 03:15
PROVIDERS: ATTEND Internal Medicine